=== PATIENT | female | born 1945 | race Caucasian/White ===

== ENCOUNTER 2022-02-09 18:31 | Emergency (ER) | payer MEDICARE, SELFPAY ==
[2022-02-09 19:04] VITALS: BP 146/72; PULSE 73; RESP 18; TEMP 35.8; O2SAT 97; BMI 23.6
[2022-02-09 19:37] LABS: Appearance Urine Cloudy (Clear); Bilirubin Urine 3+ (Negative); Blood Urine 3+ (Negative); Color Urine Red (Yellow); Glucose Urine Trace (Negative); Ketones Urine 2+ (Negative); Leukocyte Esterase Urine 3+ (Negative); Nitrite Urine Positive (Negative); Protein Urine 3+ (Negative); Specific Gravity Urine <= 1.005 (1.000-1.030); Urobilinogen Urine >=8.0 (0.2-1.0)
[2022-02-09 19:39] LABS: pH Urine >= 9.0 (5.0-8.5)
[2022-02-09 19:40] LABS: WBC Urine 50-100 (0-5)
[2022-02-09 19:58] LABS: RBC Urine 25-50 (0-2)
--- NOTE | 2022-02-09 20:30 | ED.GENADULT ---
HPI - General Adult General Time Seen by Provider: 20:31 Date Seen: 02/09/22 Chief complaint: Urogenital Problems, Female Stated complaint: Blood in urine, pain where she urinates Time Seen by Provider: 02/09/22 20:12 Source: patient and family Mode of arrival: ambulatory History of Present Illness HPI narrative: 68-year-old female who comes with suprapubic pain, hematuria, and dysuria starting today. No flank pain, fever, chills, nausea, vomiting. Distant history of urinary tract infections but nothing recent. Related Data Home Medications Medication Instructions Recorded Confirmed amitriptyline 10 mg tablet 10 mg PO DAILY 02/09/22 02/09/22 clonazepam 0.25 mg disintegrating 0.25 mg PO HS 02/09/22 02/09/22 tablet diazepam 5 mg tablet 5 mg PO BID 02/09/22 02/09/22 duloxetine 60 mg capsule,delayed 60 mg PO DAILY 02/09/22 02/09/22 release escitalopram oxalate 20 mg tablet 20 mg PO PRN 02/09/22 fluticasone propionate 50 1 spray intranasal PRN 02/09/22 mcg/actuation nasal spray,suspension gabapentin 100 mg capsule 100 mg PO Q12H 02/09/22 02/09/22 lansoprazole 30 mg capsule,delayed 30 mg PO DAILY 02/09/22 02/09/22 release levothyroxine 25 mcg tablet 25 mcg PO DAILY 02/09/22 02/09/22 lorazepam 0.5 mg tablet 0.5 mg PO PRN 02/09/22 metoprolol tartrate 50 mg tablet 50 mg PO DAILY 02/09/22 02/09/22 oxybutynin chloride 5 mg 5 mg PO PRN 02/09/22 tablet,extended release 24 hr ramipril 10 mg capsule 10 mg PO DAILY 02/09/22 02/09/22 tizanidine 2 mg tablet 2 mg PO DAILY 02/09/22 02/09/22 Allergies Allergy/AdvReac Type Severity Reaction Status Date / Time acyclovir Allergy Mild Rash Verified 02/09/22 19:13 adhesive tape Allergy Mild Rash Verified 02/09/22 19:13 cefdinir [From Omnicef] Allergy Mild Diarrhea Verified 02/09/22 19:13 pollen extracts Allergy Mild stuff nose Verified 02/09/22 19:13 Review of Systems Status of ROS: Reports: 10 or more systems reviewed and unremarkable except as noted in History and below Exam Narrative: Exam Narrative: General: Well-developed and well-nourished, no acute distress Head: Atraumatic and normocephalic Eyes: Pupils are equal reactive, extraocular motions intact, conjunctiva clear ENT: External nose and ears are normal, posterior pharynx without erythema or exudate Neck: No midline cervical tenderness, full spontaneous range of motion the neck, trachea midline, no adenopathy Heart: Regular rate and rhythm no murmurs or thrills Lungs: Clear to auscultation bilaterally without wheezes or crackles Abdomen: Soft, suprapubic tenderness, nondistended with active bowel sounds Musculoskeletal: No tenderness, deformity, or edema Neurologic: Awake, alert, and oriented x3, no gross focal neurologic deficits, cranial nerves intact as tested Psych: Mood and affect are appropriate Skin: No rashes Const: Vital Signs, click to edit/add: Vital Signs - 24 hr 02/09/22 19:04 Temperature 96.4 F L Pulse Rate [Right Pulse Oximeter] 73 Respiratory Rate 18 Blood Pressure [Ri ght Upper Arm] 146/72 H Pulse Oximetry 97 Oxygen Delivery Me thod Room Air Course Course Hospital Course: This patient seen and examined, prior records are reviewed. Patient presents with hematuria and dysuria. Urinalysis is consistent with infection. No flank pain to suggest pyelonephritis or kidney stone. No nausea, vomiting, or fever. Patient will be given ciprofloxacin given allergy profile, discharge with Pyridium and ciprofloxacin. Vital Signs Vital signs: Initial Vital Signs Temperature 96.4 F L 02/09/22 19:04 Temperature Source Temporal Artery Scan 02/09/22 19:04 Pulse Rate 73 02/09/22 19:04 Respiratory Rate 18 02/09/22 19:04 Blood Pressure 146/72 H 02/09/22 19:04 Blood Pressure Mean 96 02/09/22 19:04 Blood Pressure Position Sitting 02/09/22 19:04 Pulse Oximetry 97 02/09/22 19:04 Oxygen Delivery Method 02/09/22 19:04 Vital Signs Temperature 96.4 F L 02/09/22 19:04 Pulse Rate 73 02/09/22 19:04 Respiratory Rate 18 02/09/22 19:04 Blood Pressure 146/72 H 02/09/22 19:04 Pulse Oximetry 97 11/15/22 19:04 Oxygen Delivery Method 02/09/22 19:04 Temperature 96.4 F L 02/09/22 19:04 Pulse Rate 73 02/09/22 19:04 Respiratory Rate 18 02/09/22 19:04 Blood Pressure 146/72 H 02/09/22 19:04 Pulse Oximetry 97 02/09/22 19:04 Oxygen Delivery Method 02/09/22 19:04 Medical Decision Making Medical Records Medical records reviewed: Yes I reviewed the patient's medical records Lab Data Lab results reviewed: Yes I reviewed the patient's lab results Labs: Lab Results 02/09/22 Range/Units 19:20 Urine Color Red A (Yellow) Urine Appearance Cloudy A (Clear) Urine pH >= 9.0 H (5.0-8.5) Ur Specific [place] <= 1.005 (1.000-1.030) Urine Protein 3+ A (Negative) Urine Glucose (UA) Trace A (Negative) Urine Ketones 2+ A (Negative) Urine Blood 3+ A (Negative) Urine Nitrite Positive A (Negative) Urine Bilirubin 3+ A (Negative) Urine Urobilinogen >=8.0 (0.2-1.0) Ur Leukocyte Esterase 3+ A (Negative) Urine RBC 25-50 A (0-2) Urine WBC 50-100 A (0-5) Ur Squamous Epith Cells None (None-Few) Urine Bacteria None (None) Discharge Plan Discharge Clinical Impression: Urinary tract infection Patient Disposition: Home w/ Parent or Adult Condition: Stable Instructions: Urinary Tract Infection in Women (DC) Activity Level: No Restrictions Discharge Diet: Regular Prescriptions: No Action amitriptyline 10 mg tablet 10 mg PO DAILY clonazepam 0.25 mg tablet,disintegrating 0.25 mg PO HS diazepam 5 mg tablet 5 mg PO BID duloxetine 60 mg capsule,delayed release(DR/EC) 60 mg PO DAILY escitalopram oxalate 20 mg tablet 20 mg PO PRN fluticasone propionate 50 mcg/actuation spray,suspension 1 spray INTRANASAL PRN gabapentin 100 mg capsule 100 mg PO Q12H lansoprazole 30 mg capsule,delayed release(DR/EC) 30 mg PO DAILY levothyroxine 25 mcg tablet 25 mcg PO DAILY lorazepam 0.5 mg tablet 0.5 mg PO PRN metoprolol tartrate 50 mg tablet 50 mg PO DAILY oxybutynin chloride 5 mg tablet extended release 24hr 5 mg PO PRN ramipril 10 mg capsule 10 mg PO DAILY tizanidine 2 mg tablet 2 mg PO DAILY Follow Up/Referrals: Alex Orozco MD [Primary Care Provider] - Stand Alone Forms: [facility] Info Instructions
[2022-02-09] MEDS: CIPROFLOXACIN 500 MG TABLET PO (20:50)
[2022-02-09 20:57] VITALS: BP 146/72; PULSE 73; RESP 18; TEMP 35.8
--- OUTSIDE RECORDS SUMMARY | 2022-02-09 21:13 | XMS_ITS | Encounter Summary ---
:1945 Author Organization [place] Address [address] [facility] [place] [address] Care Team Providers Name Role Phone No Ref-Primary, Physician Primary Care Provider [phone] Reason for Visit Reason Onset Date Comments Outpatient 08/18/2021 Encounter Details Date Type Department Care Team Description 08/18/2021 Telephone [facility] Zbigniew [facility]ia [facility] [place] [address] [id number] [place], [place] [phone] [place] [address] [place], [place] [address] (Wo rk) Social History Tobacco Use Types Packs/Day Years Used Date Smoking Tobacco: Never Assessed Sex Assigned at Date Recorded Not on file documented as of this encounter Miscellaneous Notes Telephone Encounter - Beena Mejia LPCC - 08/18/2021 11:39 AM CDT Good Morning Cinthia, I wasn???t able to send this in a [employer] message, looks like your [employer] isn???t activated yet. The cost estimate for the 55+ Day Treatment program would be $31,332. If you are interested in signing the financial waiver that states you agree to pay the full amount, let me know and I can get that to you. Beena Patel [facility] Adult Day Treatment Psychotherapist Direct Line: [phone] Program Line: [phone] [email or web address] Employed by [employer] documented in this encounter Plan of Treatment Not on filedocumented as of this encounter Visit Diagnoses Not on filedocumented in this encounter Additional Health Concerns Assessment Noted Time PHQ-9 Depression Total Score: 18 08/17/2021 2:29 PM CD T documented as of this encounter Care Teams Carpenter Railcar Relationship Specialty Start Date End Date No Ref-Primary, Physician PCP - General 08/11/21 documented as of this encounter
--- OUTSIDE RECORDS SUMMARY | 2022-02-09 21:13 | XMS_ITS | Clinical Summary ---
:1945 Author Organization [place] Address [address] [place] [address] Care Team Providers Name Role Phone No Ref-Primary, Physician Primary Care Provider [phone] Medications Medication Sig Dispensed Refills Start Date End Date Status acetaminophen (TYLENOL) Take 1,000 mg by 0 2 Active 500 MG tablet mouth amitriptyline (ELAVIL) TAKE 1 TABLET BY 0 07/29/2021 Active 10 MG tablet MOUTH TWICE DAILY (5 P.M. AND AT BEDTIME) clonazePAM (KLONOPIN) 0 08/17/2021 Active 0.25 MG TBDP ODT tab DULoxetine (CYMBALTA) 0 08/12/2021 Active 60 MG capsule escitalopram (LEXAPRO) 0 08/12/2021 Active 10 MG tablet LORazepam (ATIVAN) 0.5 TAKE 1 TABLET BY 0 08/13/2021 Active MG tablet MOUTH TWICE DAILY NEEDED FOR ANXIETY oxyCODONE (ROXICODONE) 2 tablets p.o. 0 07/27/2021 Active 5 MG tablet once daily as needed. tiZANidine (ZANAFLEX) 4 0 08/15/2021 Active MG tablet Social History Tobacco Use Types Packs/Day Years Used Date Smoking Tobacco: Never Assessed Sex Assigned at Date Recorded Not on file Plan of Treatment Health Maintenance Due Date Last Done Comments ADVANCE CARE PLANNING 1945 ANNUAL REVIEW OF HM ORDERS 1945 DEXA 1945 HEPATITIS B IMMUNIZATION (1 1945 of 3 - 3-dose series) HEPATITIS C SCREENING 11/27/1961 LIPID 11/27/1988 FALL RISK ASSESSMENT 11/27/2008 MEDICARE ANNUAL WELLNESS 11/27/2008 VISIT COVID-19 Vaccine (4 - 04/13/2021 02/16/2021, 05/07/2020, Booster for Moderna series) 04/09/2020 INFLUENZA VACCINE (#1) 2021 01/12/2021, 01/03/2020, 12/28/2018, Additional history exists DTAP/TDAP/TD IMMUNIZATION 05/19/2028 05/19/2018 (2 - Td or Tdap) Pneumococcal Vaccine: 65+ Completed 01/30/2016, 01/01/2016 , Years 12/27/2014 ZOSTER IMMUNIZATION Completed 11/09/2018, 09/05/2018, 02/14/2013 PHQ-2 (once per calendar Completed 08/17/2021, 08/17/2021 year) IPV IMMUNIZATION Aged Out No longer eligi ble based on patient 's age to complete this topic MENINGITIS IMMUNIZATION Aged Out No longe r eligible based on patient 's age to complete this topic Insurance Payer Benefit Plan / Subscriber ID Effective Dates Phone Addre ss Type Group [facility] MEDICARE [id number] 2021-Presen [address] [address] [place] [address] KristyCinthia [facility] 1945 [address] (Home) [address] [place] [address] Care Teams Utilization Manager Relationship Specialty Start Date End Date No Ref-Primary, Physician PCP - General 08/11/21
--- OUTSIDE RECORDS SUMMARY | 2022-02-09 21:14 | XMS_ITS | Encounter Summary ---
:1945 Author Organization [employer] Address [address] [place] [address] Care Team Providers Name Role Phone Alex Orozco MD Primary Care Provider Reason for Visit Reason Comments Symptoms rigidity Encounter Details Date Type Department Care Team Description 06/08/2021 Telephone [facility] Rozina Beckett RN Symptoms (rigidity) [address] [place], [place] [address] Social History Tobacco Use Types Packs/Day Years Used Date Smoking Tobacco: Never Smokeless Tobacco: Never Alcohol Use Standard Drinks/Week Comments Not Currently 0 (1 standard drink = 0.6 oz pure alcoho l) Sex Assigned at Date Recorded Female 10/30/2020 7:58 AM CDT documented as of this encounter Nursing Notes Rozina Beckett, MONICA - 06/10/2021 8:42 AM CDT Call back to Cinthia, provided response, she said that's what she thought. Has been to PMR. Thanked me for call back and hung up. Mateo Ibarra MD - 06/09/2021 3:51 PM CDT I am really not sure what else to try for the rigidity at this point. Not sure if PMR has other ideas. Anxiety can make people more tense so could contribute in some way so if there are other options to treat this that could be tried. Mateo Ibarra MD Rozina Beckett RN - 06/09/2021 12:31 PM CDT Do you have any additional recommendations or comments before I call Cinthia back? Rozina Beckett RN - 06/08/2021 4:21 PM CDT Cinthia called and left a message for Dr. Ibarra. States her left side is in a constant state of rigidity and none of the recommendations or treatments have worked. She wonders if it is due to being in a constant state of anxiety or from her stroke and what can she do about it. She also placed call to PMR. documented in this encounter Plan of Treatment Not on filedocumented as of this encounter Visit Diagnoses Not on filedocumented in this encounter Care Teams Financial Compliance Officer Relationship Specialty Start Date End Date Alex Orozco MD PCP - General Family Practice 11/23/19 [address] [place] [address] documented as of this encounter
--- OUTSIDE RECORDS SUMMARY | 2022-02-09 21:14 | XMS_ITS | Encounter Summary ---
:1945 Author [facility] [address] [place] [address] Care Team Providers Name Role Phone Alex Orozco MD Primary Care Provider Reason for Visit Reason Comments Medication Request Valium Encounter Details Date Type Department Care Team Description 09/21/2021 Telephone [facility] Rozina Beckett electrical troubleshooter Request [address] nguyen (Valium) [place], [place] [address] Social History Tobacco Use Types Packs/Day Years Used Date Smoking Tobacco: Never Smokeless Tobacco: Never Alcohol Use Standard Drinks/Week Comments Not Currently 0 (1 standard drink = 0.6 oz pure alcoho l) Sex Assigned at Date Recorded Female 10/30/2020 7:58 AM CDT documented as of this encounter Nursing Notes Rozina Beckett RN - 09/22/2021 9:14 AM CDT Attempted call back, left message with Dr. Ibarras response. Referred to Dr. Benedict or whomever is managing her pain. She does have another visit scheduled with Dr. Ibarra on TuesdaySeptember 25. Mateo Ibarra MD - 09/22/2021 8:03 AM CDT We have had issues with sedation with these medications in the past. It would need to be discussed in a visit with whoever she will be following for the pain. Mateo Ibarra MD Rozina Beckett, RN - 09/21/2021 9:01 AM CDT Patient left a message on nurse line on Tuesday afternoon asking if Dr. Ibarra's would please prescribe Valium for her. Stating that the pain on her stroke side is terrible and nothing helps. She cancelled her appointment with Dr. Chavarria on Tuesday and was a no show at PMR. Please advise if this should be referred to PMR doctor? documented in this encounter Plan of Treatment Not on filedocumented as of this encounter Visit Diagnoses Not on filedocumented in this encounter Care Teams Splicing Machine Operator Automatic Relationship Specialty Start Date End Date Alex Orozco MD PCP - General Family Practice 11/23/19 [address] [place] [address] documented as of this encounter
--- OUTSIDE RECORDS SUMMARY | 2022-02-09 21:14 | XMS_ITS | Encounter Summary ---
:1945 Author Organization [place] Address [address] [place] [address]. [place] [address] Care Team Providers Name Role Phone No Ref-Primary, Physician Primary Care Provider [phone] Reason for Visit Reason Onset Date Comments Outpatient 08/11/2021 Encounter Details Date Type Department Care Team Description 08/11/2021 Telephone [facility] Generic, Behavioral Outpatient [facility] MD [address] [place] [phone] Social History Tobacco Use Types Packs/Day Years Used Date Smoking Tobacco: Never Assessed Sex Assigned at Date Recorded Not on file documented as of this encounter Miscellaneous Notes Telephone Encounter - Daryl Ga - 08/17/2021 1:42 PM CDT Operation Agent placed a second call this afternoon to check in patient for video appt at 2pm. Unable to get a hold of patient. Operation Agent left a second voicemail with rfp writer's call back number. Operation Agent included in voicemail that the latest time to check in for video appointment is 2:15pm. If patient miss the appointment today, patient can reschedule. Operation Agent left Intake's number in the voicemail just in case patient need to reschedule. Operation Agent will inform patient's real estate developer. Telephone Encounter - Daryl Ga - 08/17/2021 1:18 PM CDT Patient have a video appointment today at 2pm with [facility]. Operation Agent placed a call this afternoon to check in patient for video appointment. Unable to get a hold of patient. Operation Agent left a voicemail with rfp writer's call back number. Telephone Encounter - Drew Gutiérrez - 08/11/2021 10:48 AM CDT 08/11/21 Received call from Nohelia (MONICA [facility] [phone]) referring Pt for a DA for the 55+ Program. documented in this encounter Plan of Treatment Not on filedocumented as of this encounter Visit Diagnoses Not on filedocumented in this encounter Care Teams Linux Engineer Relationship Specialty Start Date End Date No Ref-Primary, Physician PCP - General 08/11/21 documented as of this encounter
--- OUTSIDE RECORDS SUMMARY | 2022-02-09 21:14 | XMS_ITS | Encounter Summary ---
:1945 Author Organization [facility] Address [address] [place] [address] Care Team Providers Name Role Phone Alex Orozco MD Primary Care Provider Reason for Visit Reason Comments Pain Encounter Details Date Type Department Care Team Description 06/22/2021 Telephone [facility] Rozina Beckett RN Pain [address] [place], [place] [address] Social History Tobacco Use Types Packs/Day Years Used Date Smoking Tobacco: Never Smokeless Tobacco: Never Alcohol Use Standard Drinks/Week Comments Not Currently 0 (1 standard drink = 0.6 oz pure alcoho l) Sex Assigned at Date Recorded Female 10/30/2020 7:58 AM CDT documented as of this encounter Nursing Notes Rozina Beckett RN - 06/24/2021 9:59 AM CDT Call back to Cinthia, left a message that she could schedule a follow up visit either at [facility]. Also doubtful that any place would send an Occupational therapist to her daily. Mateo Ibarra MD - 06/23/2021 4:31 PM CDT I'm really not sure. A lot of different treatments have been tried, and she has met with other specialties (PMR, pain) since I was last treating those symptoms. We could set up a visit to go over things in more detail if she would like. Mateo Ibarra MD Rozina Beckett RN - 06/22/2021 2:45 PM CDT Patient left another message that she got my voicemail. Confirmed pain is on left side (stroke side) and that PMR hasn't worked out so well. Said she needs someone to come to her facility 5 times times per week and they can't find anyone that will do that and she can't get to [place] so she only gets some exercises 2 times per week. Wonders if you know of anyone that can help in [place]. Rozina Beckett RN - 06/22/2021 2:07 PM CDT Patient left another message that she missed call back and we should leave her a message (which I did). Rozina Beckett RN - 06/22/2021 1:30 PM CDT Patient left a message that every night between 5:30-6:30 she gets a massive pain that runs from her left leg up to her arm. It sometimes lasts for a half hour to more. She is wondering if this is being caused by some medical issue. It appears this is the side that she has her spasticity. Attempted call back, left message for Cinthia Wally would pass on to Dr. Ibarra and if he has anything new to add, we can call her back. She was to work with OT through PMR and unsure if that has happened. documented in this encounter Plan of Treatment Not on filedocumented as of this encounter Visit Diagnoses Not on filedocumented in this encounter Care Teams Medical Accountant Relationship Specialty Start Date End Date Alex Orozco MD PCP - General Family Practice 11/23/[address] [place] [address] [place] [address] documented as of this encounter
--- OUTSIDE RECORDS SUMMARY | 2022-02-09 21:14 | XMS_ITS | Encounter Summary ---
:1945 Author [facility] Address [address] [place] [address] Care Team Providers Name Role Phone Alex Orozco MD Primary Care Provider Reason for Visit Reason Comments Prior Authorization Request [id number] Encounter Details Date Type Department Care Team Description 07/06/2021 Telephone [facility] [address] Authorization Rehabilitative Medic ine DO Request ([id number]) [address] [address] [place] [address] [phone] Social History Tobacco Use Types Packs/Day Years Used Date Smoking Tobacco: Never Smokeless Tobacco: Never Alcohol Use Standard Drinks/Week Comments Not Currently 0 (1 standard drink = 0.6 oz pure alcoho l) Sex Assigned at Date Recorded Female 10/30/2020 7:58 AM CDT documented as of this encounter Nursing Notes Stefany [place] CMA - 07/06/2021 10:17 AM CDT NO PA NEEDED FOR [id number], COVERAGE IS BASED ON MEDICAL NECESSITY AND CLINICAL DOCUMENTATION documented in this encounter Plan of Treatment Not on filedocumented as of this encounter Visit Diagnoses Not on filedocumented in this encounter Care Teams Ui Software Engineer Relationship Specialty Start Date End Date Alex Orozco MD PCP - General Family Practice 11/23/19 [address] [place] [address] documented as of this encounter
--- OUTSIDE RECORDS SUMMARY | 2022-02-09 21:14 | XMS_ITS | Encounter Summary ---
:1945 Author Organization Formerly [facility] Address [address] [place] [address] Care Team Providers Name Role Phone Alex Orozco MD Primary Care Provider Reason for Referral Therapies (Routine) - New Request Specialty Diagnoses / Procedures Referred By Contact Refer red To Contact Diagnoses Neuropathic pain Mateo Ibarra MD [address] [place], [place] [address] Referral ID Status Reason Start Date Expiration Date Visits V isits Requested Authorized [id number] New Request 09/25/2021 09/25/2022 1 1 Scheduling Instructions Your provider has recommended an appoint ment with [facility]. To schedule your appointment, you may ca [phone] or schedule online at Gl[employer]/schedule. We suggest you call your health insurance company about your coverage and benefits for this appo intment. Encounter Details Date Type Department Care Team Description 09/25/2021 Telemedicine [facility] Mateo Ibarra, Neuropathic pain (Primary Dx ); [address] [place], [place] [address] [place], [place] [phone] (Wo rk) Social History Tobacco Use Types Packs/Day Years Used Date Smoking Tobacco: Never Smokeless Tobacco: Never Alcohol Use Standard Drinks/Week Comments Not Currently 0 (1 standard drink = 0.6 oz pure alcoho l) Sex Assigned at Date Recorded Female 10/30/2020 7:58 AM CDT documented as of this encounter Progress Notes Mateo Ibarra MD - 09/25/2021 9:20 AM CDT [facility] Video Follow-up Note History of Present Illness: Cinthia Wagner is a 75 y.o. female with history of right frontal stroke??(likely hemorrhage),??melanoma, hypertension, pre diabetes, CKD, thyroid disease who presents in follow-up for??her stiffness, pain,??at this point felt to be related to her prior stroke.?She has a hist ory of left hemiplegia following stroke in 2010. However starting in she developed increasing stiffness on the left side as well as micrographia, right hand and head tremor and toe curling inthe feet as well as shuffling.??[place] to possibly have a parkinsonian disorder given symptoms however did not respond to up to 3 tabs TID of??carbidopa/levodopa??25/100??and a LORIN was negative, thus this now seems less likely.??Workup has also included MRI of brain and cervical spine without explanation. She also underwent treatment with physiatry, had second opinion. Treatment of pain/stiffness has been very difficult, often limited by side effects. She reports she is continuing to struggle with muscle spasms in the morning. Extending from the leftfoot the left arm. More recently gabapentin was added. This made her sleepy. The dose was moved fromthe morning to the afternoon due to this. She continues on amitriptyline, Cymbalta, tizanidine as well. She has questions today regarding the possibility of using diazepam. She is already on clonazepam for anxiety. Reports that decreasing this previously did not go well. Exam: Deferred Assessment/Plan: 75-year-old female with post stroke spasticity, pain presents in follow-up. Medicaltreatments have been less effective than would be hoped and also complicated by side effects, namelysedation being common. She reports that she did not do well when she stopped her clonazepam which would be necessary if she was to try diazepam. We discussed that I feel it is quite unlikely the diazepam would be helpful in their be high likelihood of sedation with that. Thus do not feel it is worthwhile to take her off the clonazepam and switch to it which could worsen things. I am not sure of other medical therapies to offer for her pain. We discussed that she could considernonmedical therapies. I did place referral to meet again with lifestyle renewal, feel this may be helpful. Physician / patient located at: Clinic/home Note dictated using voice recognition software. 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
--- OUTSIDE RECORDS SUMMARY | 2022-02-09 21:14 | XMS_ITS | Clinical Summary ---
:1945 Author Organization [facility] Address [place] [address] Care Team Providers Name Role Phone Alex Orozco MD Primary Care Provider [phone] Allergies Active Allergy Reactions Severity Noted Date Comments Acyclovir Rash, Erythema 06/11/2016 Cerner listed no reactions Adhesive Tape-Silicones Rash 02/02/2017 Cefdinir Diarrhea 12/21/2019 Loose stools Gabapentin Other - Describe In 09/04/2021 Sedation on just Comment Field 100mg twice da chuy. Lisinopril Erythema 02/02/2017 Pregabalin Other - Describe In 01/14/2021 fatigue Comment Field Medications Medication Sig Dispensed Refills Start End Status Date Date triamcinolone Apply topically 45 g 0 10/15/19 Active (ARISTOCORT; to affected 21 KENALOG) 0.1 % area(s) 2 times creamIndications: daily. To rash Rash right lower leg pretibial area for 14 days. DULoxetine 0 02/27/20 Active (CYMBALTA) 60 mg 21 Delayed-release capsule bisacodyL Insert 1 10 Suppository 3 04/30/19 Activ e (DULCOLAX) 10 mg Suppository (10 22 suppositoryIndicat mg) rectally ions: Chronic once daily if constipation needed (constipation). lansoprazole TAKE 1 CAPSULE 90 Capsule 2 07/02/19 A ctive (PREVACID) 30 mg BY MOUTH DAILY 22 capsuleIndications BEFORE A MEAL : Chronic GERD *OKAY TO OPEN AND PUT IN APPLESAUCE* acetaminophen TAKE 2 TABLETS 540 Tablet 3 07/31/19 Active (TYLENOL EXTRA BY MOUTH 3 22 STRGTH) 500 mg TIMES DAILY tabletIndications: Pain sennosides (SENNA) 1 p.o. twice 180 Tablet 3 08/08/19 Active 8.6 mg daily as needed 22 tabletIndications: for Chronic constipation constipation fluticasone (50 INHALE 1 SPRAY 48 g 3 08/13/19 Active mcg per actuation) IN EACH NOSTRIL 22 nasal solution DAILY (FLONASE)Indicatio ns: Chronic sinusitis, unspecified location wheelchairIndicati Wheelchair: lt 1 Each 0 09/01/19 Active ons: Ischemic wt with leg 22 stroke (HC), Left rests: Swing hemiparesis (HC) away Length of need: 99 months levothyroxine Take 1 Tablet 28 tablet. 12 09/01/19 A ctive (SYNTHROID) 25 mcg (25 mcg) by 22 tabletIndications: mouth before Acquired breakfast. hypothyroidism metoprolol Take 1 Tablet 56 Tablet 12 09/01/19 Activ e tartrate (50 mg) by 22 (LOPRESSOR) 50 mg mouth 2 times tabletIndications: daily. Essential hypertension ramipriL (ALTACE) Take 1 Capsule 56 Capsule 12 09/01/19 Active 10 mg (10 mg) by 22 capsuleIndications mouth 2 times : Essential daily. hypertension melatonin 3 mg Take 1 Capsule 90 Capsule 3 09/10/19 Active capIndications: by mouth at 22 Insomnia, bedtime. As idiopathic needed for insomnia. food supplemt, 1 bottle daily 3792 mL 10 09/25/19 Active lactose-reduced by mouth 22 (Ensure) gabapentin Four oral at 180 Capsule 12 09/30/19 Acti ve (NEURONTIN) 100 mg noon and two at 22 capsuleIndications bedtime. : Pain clonazePAM Take 0.25 mg in 90 Tablet 5 11/06/19 Act patrick (KLONOPIN WAFER) the morning, at 22 0.25 mg 5 PM, and at disintegrating bedtime. tabletIndications: Anxiety escitalopram Take 1 Tablet 30 Tablet 3 11/06/19 Act patrick oxalate (LEXAPRO) (20 mg) by 22 20 mg mouth at tabletIndications: bedtime. Moderate episode of recurrent major depressive disorder (HC) polyethylene MIX 17 GM IN 8 1700 g 3 11/20/19 Ac tive glycoL (MIRALAX) OZ GLASS OF 22 17 gram/dose LIQUID AND powderIndications: DRINK BY MOUTH Chronic 1 TIME DAILY. constipation SECOND DOSE DAILY NEEDED FOR CONSTIPATION tiZANidine One oral at 90 Tablet 11 11/28/19 Active (ZANAFLEX) 2 mg 8am, and one 22 tabletIndications: daily at Muscle spasm 5:30pm, and one at 11:30pm. amitriptyline Take 1 tablet 56 Tablet 3 01/01/20 Ac tive (ELAVIL) 10 mg by mouth at 22 tabletIndications: 5pm, and two Neuropathy, tablets by Moderate episode mouth at of recurrent major bedtime. depressive disorder (HC) LORazepam (ATIVAN) Take 0.5 20 Tablet 1 01/09/20 A ctive 0.5 mg Tablets (0.25 22 tabIndications: mg) by mouth 2 Anxiety times daily if needed for Anxiety. Tqr-I-FslzZrfrdfox TAKE 1 TABLET 90 Tablet 3 01/18/20 Active ons: HTN BY MOUTH DAILY 22 (hypertension) oxyCODONE TAKE 2 TABLETS 60 Tablet 0 02/02/20 Activ e (ROXICODONE) 5 mg BY MOUTH DAILY 22 immediate release AT NOON tabletIndications: Pain medication order GENTLY RINSE 0 06/17/19 Discontinued composer BOTH NASAL (*Patient CAVITIES 3 states no TIMES DAILY FOR long er NASAL taking/Not on CONGESTION. sending FOLLOW MIXING facili ty list) INSTRUCTIONS ON BOX. Bqa-Z-ZllyUztfsngl TAKE 1 TABLET 90 Tablet 2 02/15/20 Discontinued ons: HTN BY MOUTH DAILY 022 (hypertension) oxybutynin XL Take 1 Tablet 90 Tablet 0 10/24/19 Di scontinued (DITROPAN XL) 5 mg (5 mg) by mouth 022 (*Med CR once daily. ineffect patrick) tabletIndications: Urinary frequency sennosides (SENNA) 3 tablets p.o. 180 Tablet 3 11/13/1902/09 Discontinued 8.6 mg every morning. 22 022 (*Pat ient tabletIndications: s tates no Chronic longer constipation taking/ Not on sending facility l ist) oxyCODONE TAKE 2 TABLETS 60 Tablet 0 01/06/20 Disco ntinued (ROXICODONE) 5 mg BY MOUTH DAILY 22 022 immediate release AT NOON tabletIndications: Pain Active Problems Problem Noted Date Urinary incontinence 01/14/2022 Ischemic stroke 10/16/2021 Pain 10/06/2021 Parkinsonism 04/23/2021 Adenomatous colon polyp 08/13/2020 Overview: Colonoscopy 07/2020 3 small polyps, repea t in 5 years with propofol Chronic GERD 08/06/2020 Left hemiparesis 03/11/2020 Tinnitus aurium, bilateral 04/13/2017 Sensorineural hearing loss, asymmetrical 04/13/2017 Gait instability 06/11/2016 Chronic constipation 06/11/2016 Allergic rhinitis due to pollen 06/11/2016 Essential hypertension 06/11/2016 Acquired hypothyroidism 06/11/2016 Anxiety and depression 06/11/2016 Recurrent UTI 06/11/2016 Contracture, left hand 06/11/2016 Resolved Problems Problem Noted Date Resolved Date Pseudopolyp of ascending colon without complication 07/10/19 22 10/16/2021 Moderate episode of recurrent major depressive disorder 03/2910/13/2021 Agitation 04/28/2020 04/28/2020 Parkinsonism 04/22/2020 10/14/2020 Prediabetes 10/24/2017 10/14/2020 Hyperlipidemia, unspecified 06/11/2016 10/14/2020 Osteoporosis 06/11/2016 10/14/2020 Ascending aorta dilatation 06/11/2016 10/16/2021 Encounters Date Type Specialty Care Team Description 02/08/2022 Telephone Lorena Jordan, CHIDI Questions 02/08/2022 Nurse Triage Alex Orozco Constipatio n MD Jerrica 02/08/2022 Telephone Alex Orozco Questions ( Constipation) MD Jerrica 02/05/2022 Telephone Alex Orozco orders MD Jerrica 02/04/2022 Telemedicine Alex Orozco Telehealth (No vitals MD Jerrica taken); Follow Up (Discuss mental health referral); Conc erns (Shaking, rigid , had COVID-19 booste r 02/03/2022) 02/01/2022 Refill Alex Orozco Refill Requ est MD Jerrica (Oxycodone) 01/31/2022 Travel 01/29/2022 Telephone Alex Orozco RETURNING A CALL MD Jerrica (Patient nurse Julieta was returning a robin l regarding Cinthia message regarding the g eriatric program.) 01/28/2022 Telemedicine Alex Orozco Telehealth (No aneudy Becerril MD taken); Follow Up 01/28/2022 Telephone Alex Orozco GERIATRIC P SYCHIATRIC MD Jerrica ASSESSMENT PROG RODRIGUEZ 01/26/2022 Travel 01/26/2022 Nurse Triage Alex Orozco MD 01/22/2022 Nurse Triage Alex Orozco Error-pleakbar e disregard MD Jerrica 01/22/2022 Telephone Alex Orozco ErrorSharynpleakbar e lucretia Becerril MD 01/21/2022 Ancillary Procedure Canceled (Other) 01/21/2022 Telephone Julian June Abena, CASKET INSPECTOR Appointmen t 01/21/2022 Telephone Alex Orozco Appointment Request MD Jerrica (F/U) 01/21/2022 Telephone Renato Stacy MD 01/21/2022 Travel 01/19/2022 Telephone Alex Orozco MD 01/15/2022 Refill Alex Orozco Refill Requ triston Becerril MD (Tab-a-adela) [facility]No aneudy Becerril MD taken); Follow Up 01/14/2022 Travel 01/12/2022 Telephone Alex Orozco MD 01/08/2022 [facility] (No aneudy Becerril MD taken); Follow Up 01/08/2022 Travel 01/06/2022 Telephone Alex Orozco MD 01/06/2022 Telephone Lorena Jordan, CASKET INSPECTOR Medication Management 01/05/2022 Telephone Alex Orozco Follow Up ( LORazepam MD Jerrica (ATIVAN) 0.5 mg tab) 01/04/2022 Refill Alex Orozco Refill Requ est MD Jerrica (Oxycodone) 01/01/2022 [facility]medicine [facility] (No aneudy Becerril MD taken); Follow Up 12/31/2021 Telemedicine Julian Lorena Abena, CASKET INSPECTOR 12/28/2021 Travel 12/24/2021 Telemedicine Alex Orozco MD 12/24/2021 Travel 12/23/2021 Telemedicine Powderly, June D, CASKET INSPECTOR No Show 12/19/2021 Travel 12/19/2021 Nurse Triage Alex Orozco Diarrhea MD Jerrica 12/18/2021 Telephone Alex Orozco DISCONTINUE (( MD Jerrica sennosides (SEN NA) 8.6 mg tablet and polyethylene gl ycoL (MIRALAX) 17 gr am/dose powder/)) 12/17/2021 Phone Office Visit Alex Orozco MD 12/17/2021 Telephone Alex Orozco Follow Up MD Jerrica 12/16/2021 Telephone Alex Orozco Update ([place] cement) MD Jerrica 12/16/2021 Telephone Alex Orozco Questions ( BOWEL MD Jerrica MOVEMENT) 12/11/2021 Nurse Triage Alex Orozco Questions ( GI- patient MD Jerrica wouldn't specif y) 12/10/2021 Phone Office Visit Alex Orozco Pain MD Jerrica 12/10/2021 Travel 12/09/2021 Telemedicine Julian, June D, CASKET INSPECTOR 12/07/2021 Telephone Alex Orozco Questions MD Jerrica (Constipation/A llison ext [phone]) 12/03/2021 Telemedicine Powderly, June D, CASKET INSPECTOR No Show 12/02/2021 Refill Alex Orozco Refill Requ triston Becerril MD (oxycodone) 11/27/2021 Orders Only Alex Orozco <No scans a ttached> MD Jerrica 11/26/2021 [facility] (No aneudy Becerirl MD taken); Follow Up 11/26/2021 Travel 11/25/2021 Refill Alex Orozco Refill Requ triston Becerril MD (Lorazepam) 11/19/2021 Telemedicine [facility] (No aneudy Becerril MD taken); Follow Up 11/19/2021 Alex Avila Appointment (PLEASE CALL MD Jerrica HER) 11/12/2021 Telephone Alex Orozco order MD Jerrica from Last 3 Months Immunizations Name Administration Dates Next Due COVID-19 vaccine (Moderna 05/07/2020, 04/09/2020 100mcg/0.5mL) PF, MDV COVID-19 vaccine (Videobot 08/31/2021 30mcg/0.3mL) 12YO+ GEO-SUCROSE PF, MDV Influenza, High-dose Inactivated 01/03/2020, 2018, 03/2017, 12/30/2016, 01/01/2016 Influenza, High-dose Quadrivalent 01/14/2022, 01/12/2021 Inactivated Pneumococcal Poly,23-Valent 01/30/2016, 01/01/2016 (Pneumovax) Pneumococcal conj 13-Valent (Prevnar 12/27/2014 13) Tdap 05/19/2018 Zoster (Shingrix-RZV, recombinant) 11/09/2018, 09/05/2018 Zoster (Zostavax-ZVL, live) 02/14/2013 Family History Medical History Relation Name Comments Cancer-prostate Father Aneurysm Mother Ruptued ascendin g aorta Cancer-breast Other paternal great a unt Anesthesia Problem No Family History Relation Name Status Comments Father Mother Other Social History Tobacco Use Types Packs/Day Years Used Date Never Smoker Smokeless Tobacco: Never Used Tobacco Cessation: Counseling Given: Yes Alcohol Use Standard Drinks/Week Comments No 0 (1 standard drink = 0.6 oz pure alcoho l) Sex Assigned at Date Recorded Female 11/29/2020 8:38 PM CDT COVID-19 Exposure Response Date Recorded In the last 10 days, have you been in contact with No / Unsu re 01/31/2022 8: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 Obstetrics History Para Term AB IAB SAB Ectopic Multiple Living Live Births 0 0 0 0 0 0 0 0 0 0 0 Last Filed Vital Signs Vital Sign Reading Time Taken Comments Blood Pressure 128/70 11/03/2021 3:06 PM CDT tower Pulse 62 10/16/2021 2:07 PM CDT Temperature 37.1 ??C (98.7 ??F) 07/23/2021 6:03 PM CDT Respiratory Rate 16 07/23/2021 6:03 PM CDT Oxygen Saturation 68% 11/03/2021 3:06 PM CDT Inhaled Oxygen Concentration - - Weight 65.8 kg (145 lb) 11/03/2021 3:06 PM CDT Height 170.2 cm (5' 7) 07/23/2021 5:59 PM CDT Body Mass Index 22.71 07/23/2021 5:59 PM CDT Plan of Treatment Upcoming Encounters Date Type Specialty Care Team Description 02/10/2022 Telemedicine JulianJune, [address] [place], [place] [address] (Wo rk) 02/11/2022 Telemedicine Alex Orozco MD [address] [place], [place] [address] (Wo rk) 02/24/2022 Telemedicine Julian June, [address] [place] [address] [place], [place] [address] (Wo rk) 03/10/2022 Office Visit Del Gutierrez DPM [address] [place], [place] [address] (Wo rk) Health Maintenance Due Date Last Done Comments Hepatitis C screening for age 0911/27/1963 18-79 AAA screening age 55-77 11/27/1998 BMI (ht and wt on same day) for 10/14/2021 10/14/2020, 07/26, age 18+ 01/23/2020, Additional history exists Medicare Wellness for age 65+ 10/16/2022 10/16/2021, 2020, 05/19/2018, Additional history exists Depression screening for age 12+ 11/04/2022 11/04/2021, 11/2021, 10/16/2021, Additional history exists Tetanus booster 05/19/2028 05/19/2018 Pneumococcal series for age 65+ Completed 01/30/2016, 08/2015, 12/27/2014 Tdap Completed 05/19/2018 Zoster (shingles) series for age Completed 11/09/2018, 01/2019, 50+ 02/14/2013 DEXA/DXA scan for age 65+ Completed 07/15/2020 Influenza for age 65+ Completed 01/14/2022, 01/12/2021, 01/03/2020, Additional history exists COVID-19 vaccine series Completed 02/03/2022, 08/31/2021, 02/16/2021, Additional history exists Results Not on filefrom Last 3 Months Insurance Payer Benefit Plan / Subscriber ID Effective Dates Phone Addre ss Type Group [facility] MR [id number] 2021-Present [address] [address] [place] [address] [facility] MR [id number] 2021-Present [address] [address] [place] [address] Advance Directives Documents on File Type Date Recorded 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
--- OUTSIDE RECORDS SUMMARY | 2022-02-09 21:14 | XMS_ITS | Encounter Summary ---
:1945 Author Organization [facility] Address [address] [place] [address] Care Team Providers Name Role Phone lAex Orozco MD Primary Care Provider Reason for Visit Reason Comments MEDICATION REACTION Encounter Details Date Type Department Care Team Description 05/19/2021 Telephone [facility] [address], MEDI CATION REACTION Rehabilitative Medic ine DO [address] [address] [place] [phone] (Wo rk) Social History Tobacco Use Types Packs/Day Years Used Date Smoking Tobacco: Never Smokeless Tobacco: Never Alcohol Use Standard Drinks/Week Comments Not Currently 0 (1 standard drink = 0.6 oz pure alcoho l) Sex Assigned at Date Recorded Female 10/30/2020 7:58 AM CDT documented as of this encounter Nursing Notes Perlita Stuart RN - 06/05/2021 10:59 AM CST Copy of the med list was mailed to the pt's address on file. Chikis Ortega - 06/05/2021 10:35 AM CST Pt called to request med list.BH Radha Vasquez RN - 05/21/2021 4:03 PM CST Updated patient who verbalized understanding. No questions or additional concerns noted at this time. She is now scheduled for video visit on 06/05/21. Declined appointment on 05/27/21. Radha Vasquez RN - 05/21/2021 3:50 PM CST Left voice message instructing the patient to call [facility] back at [phone] and select option 2 to speak with a nurse. Axel Raymond DO - 05/21/2021 3:41 PM CST I do not know that I have anything else to offer. All of the typical antispasm medications I use shedoes not tolerate. I am not sure the cause of these episodes of the arm rigidity. The dantrolene should be nearly out of her system by now. If this continues I would recommend scheduling a follow-up visit by video so we can review her symptoms. Radha Vasquez RN - 05/21/2021 10:58 AM CST Updated patient who verbalized understanding. Reports she still has blurred vision. Has seizures that make her left arm and leg go rigid at the same time. States this has been happening 1-2 times daily since Tuesday. Always in the afternoon when she is laying down trying to relax. It lasts 15-20 minutes but the left arm stays rigid throughout the day. Says whatever medications she takes at 8pm relaxes her and she is able to sleep right away. Says one of the bedtime medications she takes is melatonin and she also takes clonazepam TID. Denies any other symptoms with her seizures. She is going to follow up with her eye doctor at [facility] regarding the blurred vision but states her insurance will not allow that until September. She is also going to have her [facility] nurse fax us an updated medication list. Nofurther questions/concerns noted. Please advise. S ROLLER Jillian Kaufman CMA - 05/21/2021 9:05 AM CST LMTRC 05/21 S ROLLER Axel Benedict DO - 05/19/2021 3:01 PM CST I called the patient. She did not answer so I left a message with the following. Given that she has not been taking the medication for very long hopefully the side effects symptoms will be very short-lived. She was having increased spasm from the medications that was discontinued by the on-call physician over the weekend. I would like to clarify the exact symptoms she was having that felt like side effects. The withdrawal symptoms should resolve shortly especially given she had only been taking the medication for a couple days. S ROLLER Chikis Samuel - 05/19/2021 12:49 PM CST Pt called, unable to reach a nurse. Pt is having negative/withdrawl reaction to Dantrolene. Pt states she is having great rigidity on left side of body and is hoping to hear from a nurse soon. Pleaseadvise. S ROLLER documented in this encounter Plan of Treatment Not on filedocumented as of this encounter Visit Diagnoses Not on filedocumented in this encounter Care Teams Direct Care Counselor Relationship Specialty Start Date End Date Alex Orozco MD PCP - General Family Practice 11/23/19 [address] [place] [address] documented as of this encounter
--- OUTSIDE RECORDS SUMMARY | 2022-02-09 21:14 | XMS_ITS | Encounter Summary ---
:1945 Author Organization [facility] Address [address] [place] [address] Care Team Providers Name Role Phone Alex Orozco MD Primary Care Provider Encounter Details Date Type Department Care Team Description 06/17/2021 Telephone [facility] [address] Alie Farr, OTR/L Occupational Rehab [address] [facility] [address] [place] [address] [place] [address] [phone] Social History Tobacco Use Types Packs/Day Years Used Date Smoking Tobacco: Never Smokeless Tobacco: Never Alcohol Use Standard Drinks/Week Comments Not Currently 0 (1 standard drink = 0.6 oz pure alcoho l) Sex Assigned at Date Recorded Female 10/30/2020 7:58 AM CDT documented as of this encounter Nursing Notes Alie Farr OTR/L - 06/17/2021 2:02 PM CDT OT note: Patient called and left this therapist a message stating she was upset she was not able to access the exercises that were recommended. She had previously been scheduled for an OT consultation with Isabela Das who at the time spoke to patient over the phone as noted in the chart, however client declined consultation at that time. Returned patient's call today, left a voicemail overviewing the note from Isabela Das's original contact with the patient. Recommend patient call to schedule an appointment if she would like further information on the OT lifestyle renewal program and recommendations for exercises. KRISTINA Damon/L 2:08 PM 06/17/2021 documented in this encounter Plan of Treatment Not on filedocumented as of this encounter Visit Diagnoses Not on filedocumented in this encounter Care Teams Telephonic Nurse Relationship Specialty Start Date End Date Alex Orozco MD PCP - General Family Practice 11/23/19 [address] [place] [address] documented as of this encounter
--- OUTSIDE RECORDS SUMMARY | 2022-02-09 21:14 | XMS_ITS | Encounter Summary ---
:1945 Author [facility] [address] [place] [address] Care Team Providers Name Role Phone Alxe Orozco MD Primary Care Provider Encounter Details Date Type Department Care Team Description 07/02/2021 Telephone [facility] [address] Pain Axel Benedict S, [place] Clinic [address] [place], [place] [id number] [place] [id number] [phone] Social History Tobacco Use Types Packs/Day Years Used Date Smoking Tobacco: Never Smokeless Tobacco: Never Alcohol Use Standard Drinks/Week Comments Not Currently 0 (1 standard drink = 0.6 oz pure alcoho l) Sex Assigned at Date Recorded Female 10/30/2020 7:58 AM CDT documented as of this encounter Nursing Notes Kirti Oakes RN - 07/02/2021 1:44 PM CDT Shama nurse from assisted living calling for patient. Dr. Orozco her PCP gave patient a 2 week supply of oxycodone for her burning attacks. It's helps with the burning pain but not the rigidity attacks she gets. Patient will do office visit tomorrow with you zoom call. She's been only taking the oxyin the evening and the tizanidine bid. Tonight they will start oxycodone morning and evening. She's taking 10 mg in evening. Location of pain: travels up the body from her left toes to her left arm, whole left side body, stroke side Description of pain: burning pain Extremity symptoms(numbness/weakness/tingling): stroke side left side Severity of pain (0-10): 10 When did pain start?: she's had these episodes for a couple of weeks and thy would fade away but nowno longer does it fade off. Same pain (seen for it before) or new pain? Same pain but not going away. What is working/not working to alleviate pain? Tizanidine and oxy 5 mg tabs Bowel or Bladder changes? no documented in this encounter Plan of Treatment Not on filedocumented as of this encounter Visit Diagnoses Not on filedocumented in this encounter Care Teams Surgical Pathologist Relationship Specialty Start Date End Date Alex Orozco MD PCP - General Family Practice 11/23/19 [address] [place] [address] documented as of this encounter
--- OUTSIDE RECORDS SUMMARY | 2022-02-09 21:14 | XMS_ITS | Encounter Summary ---
:1945 Author Organization [facility] Address [address] [place] [address] Care Team Providers Name Role Phone Alex Orozco MD Primary Care Provider Reason for Referral Consult/Transfer Care (Routine) - Incomplete Specialty Diagnoses / Procedures Referred By Contact Refer red To Contact Diagnoses Anxiety and depression (HRC) [place] [address] [place] [address] Referral ID Status Reason Start Date Expiration Date Visits V isits Requested Authorized [id number] Incomplete 04/17/2021 07/17/2022 1 1 Scheduling Instructions Your provider has recommended an appoint ment with Behavioral Health. You may call [phone] to schedule your appointmen t. This recommended service/s may not be covered by your health plan (health insu mikey). To find out your specific benefit coverage, please call the number on your insurance card.?? Please note that in order to maintain access for all patients, [facility] does have a late cancellation policy. In order to avoid being restrict ed from scheduling future appointments in Behavioral Health you will need to cance l at least 24 hours in advance. We request you that you arrive 30 minutes before yo ur first appointment to complete paperwork. TRONIC COMMUNICATIONS TECHNICIAN Reason for Visit Reason Comments Follow-up Encounter Details Date Type Department Care Team Description 04/17/2021 Telemedicine [place] [address] [address] Spas tic hemiplegia affecting nondominant side (HRC) (Primary Dx); Rehabilitative Medic ine DO Neuropathic pain syndrome (non-herpetic) ; [address] [address] Effie León Anxiety and depression; [place], [place] Gait instability [phone] Social History Tobacco Use Types Packs/Day Years Used Date Smoking Tobacco: Never Smokeless Tobacco: Never Alcohol Use Standard Drinks/Week Comments Not Currently 0 (1 standard drink = 0.6 oz pure alcoho l) Sex Assigned at Date Recorded Female 10/30/2020 7:58 AM CDT documented as of this encounter Patient Instructions Patient InstructionsAxel Benedict DO - 04/17/2021 11:20 AM CST Follow-up visit completed by video. Ongoing significant spasticity in the left upper and lower extremities as well as dystonia in the right foot. Anxiety continues to be a significant challenge. She reports that it feels worse with the decreasing dose of clonazepam. Per review of notes with her psychiatrist it appears that this is to potentially initiate opioid therapy. 1. Discussed that certainly this continues to be a very challenging case. I did encourage her to continue with the occupational therapy visits that are scheduled. I am hopeful that this will be a helpful program. Discussed that this will be learning about relaxation exercises and techniques to help manage the patient's anxiety and pain. 2. Continue tizanidine. 3. Patient is scheduled for Botox injections in 2 weeks. 4. I did put in a order for a consult with Psychiatry to see if she would like to establish with mitali Correa psychiatry for management of her severe anxiety and depression. TRONIC COMMUNICATIONS TECHNICIAN documented in this encounter Progress Notes Christina Vaughn RN - 04/17/2021 11:20 AM CST Before we can start this telephone/video visit, the patient verbally consents to the followin. Patient name and date of : confirmed 2. Demonstrates an understanding of the limitations with a telephone/virtual visit: confirmed 3. Physical location of patient in case of emergency: home -assisted living 4. The telehealth visit will be billed to their insurance: confirmed 5. As a reminder, the [facility] number that your provider calls on is random and not monitored. If you have questions, please call the nurse line at [phone] option #2 TRONIC COMMUNICATIONS TECHNICIAN Axel Benedict DO - 04/17/2021 11:20 AM CST PHYSICAL MEDICINE AND REHABILITATION Follow up Chief Complaint: Chief Complaint Patient presents with ??? Follow-up History of Present Illness: Cinthia Wagner is a 75 y.o. 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 She began to experience spasticity on the left side multipleyears. Initially she noted curling of the toes and fingers. Over time the symptoms have progressed. She moved to [place] in 2017. At that time symptoms were more signigicant. She has gone through botox injections on several occasions. She feels that the more recent injections didn't provide significant benefit. Last injections 11/03/20 with 290 units. Patient does have some difficulty recalling prior he medications or treatments that have been trialed. Reviewed previous record for prior medications. Not able to find reason for patient discontinuing baclofen. Noted that it was ordered as p.r.n. in the past Patient lives in a long-term care facility. Follow-up visit by video. Patient continues to experience significant symptoms. She notes that her anxiety has been quite challenging. She is currently undergoing a reduced dose of her clonazepam. She is not sure why, thinks it may be related to a potential opioid therapy but she reports she is not able to review the last note with her psychiatrist. Continues to have significant rigidity in the left upper and lower extremities as well as significant pain in the right foot. Pain today 6/10, 10/10 in the morning. Constant, burning, staying the same. Aggravated by stress/anxiety. Alleviated by medications. Limited response to Botox at the last visit. Mental health: Dr Benitez is her psychiatrist for management of her anxiety and depression. She feels that her anxiety is significant She is scheduled to work with a psychologist randee Chawla. Duloxetine 40 mg daily Tizanidine 2 mg 3 times per day Baclofen cause significant dizziness discontinued Lyrica caused significant somnolence and blurry vision, it was since discontinued. Therapies: PT 2 times per week. She can walk 1 block. Past Medical History: Past Medical History: Diagnosis Date ??? Anxiety (HRC) ??? CKD (chronic kidney disease) (HRC) ??? Hyperlipemia (HRC) ??? Hypertension (HRC) ??? Melanoma (HRC) ??? Prediabetes ??? Stroke (HRC) R frontal hemorrhage, 2011 ??? Thyroid disease (HRC) Medications: The patient has a current medication list which includes the following prescription(s):acetaminophen, clonazepam, duloxetine, fluticasone propionate, hydroxyzine hcl, lansoprazole, levothyroxine, melatonin, metoprolol tartrate, multivitamin, onabotulinumtoxina, polyethylene glycol, ramipril, sertraline, tizanidine, tizanidine, and tizanidine. Allergies: Acyclovir, Adhesive, and Omnicef [cefdinir] Social History: Single Review of Systems: As per history of present illness. All other systems are negative. Physical Examination: Exam deferred Data: Assessment: ICD-10-CM 1. 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 Neuropathic pain syndrome (non-herpetic) M79.2 3. Anxiety and depression ([facility]) F41.9 Behavioral Health F32.A 4. Gait instability R26.81 Recommendations: Follow-up visit completed by video. Ongoing significant spasticity in the left upper and lower extremities as well as dystonia in the right foot. Anxiety continues to be a significant challenge. She reports that it feels worse with the decreasing dose of clonazepam. Per review of notes with her psychiatrist it appears that this is to potentially initiate opioid therapy. 1. Discussed that certainly this continues to be a very challenging case. I did encourage her to continue with the occupational therapy visits that are scheduled. I am hopeful that this will be a helpful program. Discussed that this will be learning about relaxation exercises and techniques to help manage the patient's anxiety and pain. 2. Continue tizanidine. 3. Patient is scheduled for Botox injections in 2 weeks. 4. I did put in a order for a consult with Psychiatry to see if she would like to establish with mitali Correa psychiatry for management of her severe anxiety and depression. We discussed the anatomy of the spine to discuss where the pathology is and the pathophysiology of why the patient is having pain. This plan was discussed with the patient and the patient is in agreement with this plan. The patienthas no further questions or concerns. This visit was completed as a virtual video visit using a synchronous, two-way, audio-video technology platform. Due to the restrictions of the COVID-19 pandemic, a virtual appointment is the preferredmethod of medical assessment whenever possible. All issues as documented above were discussed and addressed. Due to the nature of an audio-video modality, the only components of a physical exam that could be done are the elements supported by direct visual observation. If it was felt that the patient should be evaluated in clinic or in an emergency room setting, then this was discussed with the patient. Patient identification was verified at the start of the visit, including the patient's name, date ofbirth, and physical location in case of emergency. Patient verbally consented to visit and demonstrated an understanding of the limitations of this virtual visit. I discussed with the patient that this visit is a telehealth visit that will be billed to their insurance. We reviewed potential benefits, risks, and confidentiality of telehealth visits. In the event of technical problems, a contingency plan was made. I explained that the appropriateness of telehealth visits is determined by the provider and that patient may need to be seen in clinic in the future. Axel Benedict DO Physical Medicine and Rehabilitation TRONIC COMMUNICATIONS TECHNICIAN documented in this encounter Plan of Treatment Scheduled Referrals Name Type Priority Associated Diagnoses Order S [facility] Behavioral Health Referral Routine Anxiety and depression Ordered: 04/17/2021 documented as of this encounter Visit Diagnoses Diagnosis Spastic hemiplegia affecting nondominant side (HRC) - Primary Spastic hemiplegia affecting nondominant side Neuropathic pain syndrome (non-herpetic) Neuralgia, neuritis, and radiculitis, un specified Anxiety and depression (HRC) Dysthymic disorder Gait instability Abnormality of gait documented in this encounter Care Teams Commercial Ocean Clammer Relationship Specialty Start Date End Date Alex Orozco MD PCP - General Family Practice 11/23/19 [address] [place] [id number] documented as of this encounter
--- OUTSIDE RECORDS SUMMARY | 2022-02-09 21:14 | XMS_ITS | Encounter Summary ---
:1945 Author Organization [facility] Address [address] [place] [address] Care Team Providers Name Role Phone Alex Orozco MD Primary Care Provider Reason for Visit Reason Comments Follow-up Encounter Details Date Type Department Care Team Description 07/03/2021 Telemedicine [facility] [address] Benedict Spas tic hemiplegia affecting nondominant side (HRC) (Primary Dx); Rehabilitative Medic ine DO Focal dystonia; [address] [address] [place] Gait instability; [place], [place] Anxie ty and depression [phone] Social History Tobacco Use Types Packs/Day Years Used Date Smoking Tobacco: Never Smokeless Tobacco: Never Alcohol Use Standard Drinks/Week Comments Not Currently 0 (1 standard drink = 0.6 oz pure alcoho l) Sex Assigned at Date Recorded Female 10/30/2020 7:58 AM CDT documented as of this encounter Patient Instructions Patient InstructionsAxel Benedict DO - 07/03/2021 11:20 AM CDT Follow-up visit completed by video. Patient notes that the Botox injections performed at her last visit only provided mild temporary benefit. She does continue to takes is tizanidine with only mild relief. Continues to experience severe symptoms on the left side with rigidity and muscle spasms. She has noted that she was able to establish with a psychologist and so far this has been going very well. 1. Given patient's lack of response to Botox dosing with 400 units we will plan to increase the doseto 600 units to hopefully provide maximum benefit. 2. Continue tizanidine. 3. Will patient schedule for repeat Botox injections 3 months from the prior injections. documented in this encounter Progress Notes Axel Benedict DO - 07/03/2021 11:20 AM CDT PHYSICAL MEDICINE AND REHABILITATION Follow up Video visit Chief Complaint: Chief Complaint Patient presents with [...] the symptoms have progressed. She moved to [place] in 2017. At that time symptoms were [...] in a long-term care facility. Follow-up visit completed by video. Patient continues to experience significant symptoms on the right side. Muscle rigidity, pain, spasms. Limited benefit from Botox. She did note some temporary reliefbut the dosing does not appear to be sufficient. She continues tizanidine. She continues to be quitedistressed by her symptoms. Pain today 10/10, intermittent, stabbing. Progressing. Denies alleviating factors other than distraction. She does note numbness and weakness in the left arm and leg. Mental health: Dr Benitez is her psychiatrist for management of her anxiety and depression. She feels that her anxiety is significant She has started working with a counselor KULDEEP Dietz Address: [address] [place] [id number] Duloxetine 40 mg daily Tizanidine 2 mg [...] list which includes the following prescription(s):acetaminophen, clonazepam, dantrolene, duloxetine, fluticasone propionate, hydroxyzine hcl, lansoprazole, levothyroxine, melatonin, metoprolol tartrate, multivitamin, onabotulinumtoxina, polyethylene glycol, ramipril, sertraline, tizanidine, and tizanidine. Allergies: Acyclovir, Adhesive, and Omnicef [cefdinir] Social History: Single Review of Systems: As per history of present illness. All other systems are negative. Physical Examination: Exam deferred Data: Assessment: ICD-10-CM 1. Spastic hemiplegia affecting nondominant side (HRC) G81.10 2. 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 Gait instability R26.81 4. Anxiety and depression (HR) F41.9 F32.A Recommendations: Follow-up visit completed by video. Patient notes that the Botox injections performed at her last visit only provided mild temporary benefit. She does continue to takes is tizanidine with only mild relief. Continues to experience severe symptoms on the left side with rigidity and muscle spasms. She has noted that she was able to establish with a psychologist and so far this has been going very well. 1. Given patient's lack of response to Botox dosing with 400 units we will plan to increase the doseto 600 units to hopefully provide maximum benefit. 2. Continue tizanidine. 3. Will patient schedule for repeat Botox injections 3 months from the prior injections. 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
--- OUTSIDE RECORDS SUMMARY | 2022-02-09 21:14 | XMS_ITS | Encounter Summary ---
:1945 Author Organization [facility] Address [address] [place] [address] Care Team Providers Name Role Phone Alex Orozco MD Primary Care Provider Encounter Details Date Type Department Care Team Description 05/25/2021 Telephone [facility] [address] Lucy Benedict DO Rehabilitative Medic ine [address] [place] [address] [place], [place] [id number] [place] [id number] [phone] Social History Tobacco Use Types Packs/Day Years Used Date Smoking Tobacco: Never Smokeless Tobacco: Never Alcohol Use Standard Drinks/Week Comments Not Currently 0 (1 standard drink = 0.6 oz pure alcoho l) Sex Assigned at Date Recorded Female 10/30/2020 7:58 AM CDT documented as of this encounter Nursing Notes Radha Bearden RN - 05/25/2021 10:42 AM CST Per 01/22/21 note patient lives at [facility] and their fax is [phone]. Faxed prescription as requested. Axel Raymond DO - 05/25/2021 8:08 AM CST Received a page over the weekend regarding the patient's significant spasticity since discontinuing the dantrolene. Discussed patient's care with nursing staff. Discussed that I do not know there are other options for management of her symptoms. She had done well with tizanidine in the past. I do wonder if her anxiety may have limited some of the benefit of tizanidine. She has been started on a new medication with Psychiatry. Given her ongoing significant spasticity I reordered the patient's tizanidine. This had provided some benefit in the past. Order signed to start at 2 mg b.i.d.. This was givenas a verbal order. Nursing please fax the updated order to her senior living. ERNATOR documented in this encounter Plan of Treatment Not on filedocumented as of this encounter Visit Diagnoses Not on filedocumented in this encounter Care Teams Sand Wheeler Relationship Specialty Start Date End Date Aelx Orozco MD PCP - General Family Practice 11/23/19 [address] [place] [address] documented as of this encounter
--- OUTSIDE RECORDS SUMMARY | 2022-02-09 21:14 | XMS_ITS | Encounter Summary ---
:1945 Author Organization [employer] Address [address] [place] [address] Care Team Providers Name Role Phone Alex Orozco MD Primary Care Provider Reason for Visit Reason Comments Medication Questions Encounter Details Date Type Department Care Team Description 03/23/2021 Telephone [facility] [address], Medi cation Questions Rehabilitative Medic ine DO [address] [address] [place] [address] [phone] Social History Tobacco Use Types Packs/Day Years Used Date Smoking Tobacco: Never Smokeless Tobacco: Never Alcohol Use Standard Drinks/Week Comments Not Currently 0 (1 standard drink = 0.6 oz pure alcoho l) Sex Assigned at Date Recorded Female 10/30/2020 7:58 AM CDT documented as of this encounter Nursing Notes Radha Bearden RN - 05/25/2021 10:49 AM CST Called Lazara back to follow up on this. She reports the person who was supposed to follow up with her continued to dodge the question and now is no longer employed there. States she is going to ask the new person for an answer and agree's that even if medical cannabis is no longer being pursued for patient its good to know if this is an option or not for patient now or in the future. Lazara has nurse ER line to return call. Radha Vasquez RN - 04/23/2021 2:04 PM CST This nurse has not yet heard back about this. Patient would also like to know if her facility can provide transportation for her to machine operator picker the medical cannabis if approved. Left voice message for Lazara requesting update. Radha Vasquez RN - 04/08/2021 12:30 PM CST Lazara has not heard back yet on this and will follow up on it again and let us know. Radha Vasquez RN - 03/30/2021 2:54 PM CST Updated Lazara who is going to find out if medical cannabis in pill form is allowed at their facility. She will call us back. Axel Raymond DO - 03/30/2021 2:15 PM CST Order signed to remove the p.r.n. tizanidine. I think just the 1 time per day will hopefully be lessanxiety provoking. We can discuss this further at her follow-up visit. Perlita Azevedo RN - 03/30/2021 12:55 PM CST Lazara called back from her [facility], [facility] manage her medications. She is taking Tizanidine 2 mg at 6am -2pm -10 pm. Lazara explained that they offer her 1-2 tablets and she has a hard time deciding how many to take and this confuses her. Lazara thinks it would probably be best to change the order of Tizanidine to 1 tablet three time a day. Pt has a follow up appt later this month with Dr. Benedict. Radha Vasquez RN - 03/30/2021 10:13 AM CST Spoke with MONICA Lyman at Dr. Benitez's office who reports that the plan is to continue seeing the patient on a routine basis with the next appointment being the end of the month. However, Dr. Benitez will continue to taper patient off her clonazepam due to non-compliance with medication. MONICA Goel reports patient calls multiple time a day complaining of medications not working and/or causing side effects and asks to be taken off of them but then calls back later requesting increased dosing in the same medication. Dr. Benitez has recommended that patient follows up again with the pain clinic regarding her pain management. Per note from 03/23/21 patient take Tizanidine 1 tablet TID. Left voice message for Lazara at her [facility]ARE [facility] to confirm that she is still taking the tizanidine TID. When she calls back also [facility] Dr. Benedict, Would you like the patient to follow up with Caren Beltran CNP? Axel Raymond DO - 03/30/2021 7:02 AM CST She has tolerated the tizanidine well in the past. At our last visit it would seem to be working well and we even tried to increase it. I would like to confirm how she is currently taking it. I do think it is important for to continue on a baseline of this medication to help prevent her spasticity from becoming even more severe. I do think that her anxiety is playing a significant role in a lot of her symptoms. The tizanidine should not disrupt her sleep in actually can help with sleep. We should get an updated schedule her for a follow-up visit I would also like to be sure that she has regular follow ups psychiatry. URED [employer]BLE PRODUCTS MAKER Radha Bearden RN - 03/26/2021 4:42 PM CST Patient called hysterically in tears reporting the tizanidine continues to cause her drowsiness. Reminded her that she told us she was going to refuse the medication going forward and that Lazara agreed she can refuse it. Patient reports Lazara is not here right now but she's glad this nurse told her she can refuse it because she did not know that. Patient then ended call. URED [employer]BLE PRODU[employer] MAKER Perlita Stuart RN - 03/23/2021 11:26 AM CST Lazara called in from [facility]. Lazara reports that Cinthia wants to come off of the Tizanidine in the morning. According to Lazara she typically takes 1 tablet of the tizanidine TID. She complains that the tizanidine makes her shaky, tired and rigid. Cinthia has also been complaining of not sleeping well at night. She used to take melatonin at night but has stopped this recently. She also had the clonazepam 0.25 mg decreased from QID to TID by her Psychiatrist on 03/17. She now takes the clonazepam at 8am- 12p- 4pm. I explained to Lazara that Dr. Benedict is out of the clinic this week. Lazara is still going to offerher the tizanidine but Cinthia has the right to refuse taking this medication. Lazara is also going toreach out to Dr. Benitez's office as some of her complaints may have to do with the dose reduction of the clonazepam. Lazara stated that it is difficult to tell what helps and doesn't help with Cinthia as she changes her mind about things constantly. Radha Vasquez RN - 03/23/2021 10:41 AM CST Patient reports that she would like to slowly stop taking tizanidine. Patient is concerned about withdrawal but also states that she will plan to refuse the medication. Patient expressed frustration and became tearful. She declines station gateman and asks for on-call provider to advise on taper. However patient does not know how many tablets she is currently using. Offered to speak with staff or call thembut she declined. States she will ask them to call us back. U[employer]ODU[employer] MAKER documented in this encounter Plan of Treatment Not on filedocumented as of this encounter Visit Diagnoses Not on filedocumented in this encounter Care Teams Outsole Splicer Relationship Specialty Start Date End Date Alex Orozco MD PCP - General Family Practice 11/23/19 [address] [place] [address] documented as of this encounter
--- OUTSIDE RECORDS SUMMARY | 2022-02-09 21:14 | XMS_ITS | Encounter Summary ---
:1945 [facility] Address [address] [place] [address] Care Team Providers Name Role Phone Alex Orozco MD Primary Care Provider Reason for Visit Reason Comments Spasms ANXIETY Encounter Details Date Type Department Care Team Description 07/13/2021 Telephone Careline Unassigned, Provider Spasms; ANXIETY [address] [place], [place] [address] [address] [place] [address] Social History Tobacco Use Types Packs/Day Years Used Date Smoking Tobacco: Never Smokeless Tobacco: Never Alcohol Use Standard Drinks/Week Comments Not Currently 0 (1 standard drink = 0.6 oz pure alcoho l) Sex Assigned at Date Recorded Female 10/30/2020 7:58 AM CDT documented as of this encounter Nursing Notes Radha Bearden, RN - 07/24/2021 8:33 AM CDT Spoke with Lazara at patient [facility] who indicates that patient anxiety has gotten out of control and she has thoughts of wanting to . Per her PCP they were advised to send her to the ED to have her admitted for mental health reasons. They have sent her to different ED's more than once and no one will take her because she does not have a plan to harm herself. None of the anti-anxiety or pain meds she has been given by outpatient providers or the ED including fentanyl patch, ativan, and diazepam have helped. Lazara reports they are at a loss for for what do because the patient requires on-on-one care but they cannot provide that in their [facility]. No requests being made at this time but this is an u pdate for Dr. Benedict. Lazara indicates patient may be calling in again with requests but the [facility] understands per the note below that we have run out of options for antispasmodics. Axel Benedict DO - 07/17/2021 1:34 PM CDT We unfortunately do not have other treatment options to offer as she is not other antispasmodics or higher doses the spasm. Love Sagastume - 07/13/2021 10:45 AM CDT Verified patient identity using three identifiers: Yes Caller's relationship to patient: Other Staff Do you get your primary care at a HP or PN clinic: PN Are you calling about a related concern: No Do you see a PN specialist for the reason you are calling? Yes HP Select Member: No Message to Provider Patient would like to send a message to his/her: provider Name of patient's provider: Jak Summarize the patient's question or concern (if the patient is currently experiencing symptoms, ask them if they would like to speak to a CareLine Nurse): Spasms on left Stroke side causing a lot of anxiety and pain. Please advise Is it okay to leave a detailed message on your voicemail? No Patient was informed that if the call is after 3:00 pm or on a weekend/holiday, they may not get a call back today: No Plan: Message routed to the Provider Care Team Pool. documented in this encounter Plan of Treatment Not on filedocumented as of this encounter Visit Diagnoses Not on filedocumented in this encounter Care Teams Stonecutter Hand Relationship Specialty Start Date End Date Alex Orozco MD PCP - General Family Practice 11/23/19 [facility] [place] [address] documented as of this encounter
--- OUTSIDE RECORDS SUMMARY | 2022-02-09 21:14 | XMS_ITS | Encounter Summary ---
:1945 Author Organization [facility] Address [address] [place] [address] Care Team Providers Name Role Phone Alex Orozco MD Primary Care Provider Reason for Visit Reason Comments Refill Encounter Details Date Type Department Care Team Description 06/30/2021 Refill [facility] Axel Benedict, DO Refill Medicine [address] [facility] [address] [place] [address] [place] [address] [phone] Social History Tobacco Use Types Packs/Day Years Used Date Smoking Tobacco: Never Smokeless Tobacco: Never Alcohol Use Standard Drinks/Week Comments Not Currently 0 (1 standard drink = 0.6 oz pure alcoho l) Sex Assigned at Date Recorded Female 10/30/2020 7:58 AM CDT documented as of this encounter Nursing Notes Mariely Ibarra RN - 06/30/2021 12:28 PM CDT Last OV: 04/17/21 Next OV: 07/03/21 Per PAPER CUP MACHINE TENDER, last refill date & amt: 02/02/21 #90 Last OV plan/Problem list note: Recommendations: Follow-up visit completed by video. Ongoing [...] if she would like to establish with [facility] for management of her severe anxiety and depression. ?? documented in this encounter Plan of Treatment Not on filedocumented as of this encounter Visit Diagnoses Not on filedocumented in this encounter Care Teams Waterside Worker Relationship Specialty Start Date End Date Alex Orozco MD PCP - General Family Practice 11/23/19 [address] [place] [address] documented as of this encounter
--- OUTSIDE RECORDS SUMMARY | 2022-02-09 21:14 | XMS_ITS | Encounter Summary ---
:1945 Author Organization [facility] Address [address] [place] [address] Care Team Providers Name Role Phone Alex Orozco MD Primary Care Provider Reason for Visit Reason Onset Date Comments ERRONEOUS ENTRY 05/06/2021 Encounter Details Date Type Department Care Team Description 05/01/2021 Telemedicine [facility] Mateo Ibarra, ERRONEOUS ENTRY [address] [place], [place] [address] [place], [place] [phone] (Wo rk) Social History Tobacco Use Types Packs/Day Years Used Date Smoking Tobacco: Never Smokeless Tobacco: Never Alcohol Use Standard Drinks/Week Comments Not Currently 0 (1 standard drink = 0.6 oz pure alcoho l) Sex Assigned at Date Recorded Female 10/30/2020 7:58 AM CDT documented as of this encounter Patient Instructions Patient InstructionsElizabeth Guadarrama RN - 05/01/2021 8:50 AM HOME ECONOMIST Please note the number that your provider called from is a non-working number for return calls. Please contact us using [email or web address] or by calling the [facility] nurse line at [phone]. To set up your next appointment, please call the [facility] scheduling line at [phone]. Two easy ways to stay connected with what is going on at [facility]: 1. If you have not already done so, we encourage you to sign up (for free) to be on our e-mailing list, so that you will receive information about upcoming classes, events, and activities hosted by [facility]! To sign up, simply send an email to [email or web address] indicating that you would like to be included. 2. Follow us on Facebook to learn more about current news and upcoming events. Find us at [facility] [address]! ECONOMIST documented in this encounter Progress Notes Mateo Ibarra MD - 05/01/2021 8:50 AM CST This encounter is an erroneous entry. Please disregard. ECONOMIST documented in this encounter Plan of Treatment Not on filedocumented as of this encounter Visit Diagnoses Diagnosis ERRONEOUS ENTRY - Primary documented in this encounter Care Teams Market Research Associate Relationship Specialty Start Date End Date Alex Orozco MD PCP - General Family Practice 11/23/19 [address] [place] [address] documented as of this encounter
--- OUTSIDE RECORDS SUMMARY | 2022-02-09 21:14 | XMS_ITS | Encounter Summary ---
:1945 Author Organization [facility] Address [address] [place] [address] Care Team Providers Name Role Phone Alex Orozco MD Primary Care Provider Reason for Visit Reason Comments ERRONEOUS ENTRY Encounter Details Date Type Department Care Team Description 05/31/2021 Telephone Careline Unassigned, Provider ERRONEOUS ENTRY [address] [place], [place] [address] [place] [address] Social History Tobacco Use Types Packs/Day Years Used Date Smoking Tobacco: Never Smokeless Tobacco: Never Alcohol Use Standard Drinks/Week Comments Not Currently 0 (1 standard drink = 0.6 oz pure alcoho l) Sex Assigned at Date Recorded Female 10/30/2020 7:58 AM CDT documented as of this encounter Nursing Notes Valeria Root - 05/31/2021 2:52 PM CST Error RVISOR TYPE DISK QUALITY CONTROL documented in this encounter Plan of Treatment Not on filedocumented as of this encounter Visit Diagnoses Not on filedocumented in this encounter Care Teams Family Law Attorney Relationship Specialty Start Date End Date Alex Orozco MD PCP - General Family Practice 11/23/19 [facility] [address] documented as of this encounter
--- OUTSIDE RECORDS SUMMARY | 2022-02-09 21:14 | XMS_ITS | Encounter Summary ---
:1945 Author Organization [facility] Address [address] [place] [address] Care Team Providers Name Role Phone Alex Orozco MD Primary Care Provider Reason for Visit Reason Comments Prior Authorization For Medication Botox Encounter Details Date Type Department Care Team Description 03/30/2021 Telephone [facility] [address] Authorization Rehabilitative Medic ine DO For Medication (Botox) [address] [address] [place] [address] [phone] Social History Tobacco Use Types Packs/Day Years Used Date Smoking Tobacco: Never Smokeless Tobacco: Never Alcohol Use Standard Drinks/Week Comments Not Currently 0 (1 standard drink = 0.6 oz pure alcoho l) Sex Assigned at Date Recorded Female 10/30/2020 7:58 AM CDT documented as of this encounter Nursing Notes Rita Hart RN - 04/09/2021 9:17 AM CST I called and spoke to inside outside sales representative Milvia @ [facility], CPT code: J0585 Botox 400 units does not need prior authorization and is a billable code for the patient. Med can be buy and bill. Call ref# [id number] LM for patient that she can schedule this procedure as no PA needed, schedule on/after 04/29/21. I also spoke with sister Julieta per message below. Radha Vasquez RN - 04/08/2021 4:53 PM CST Provider confirmed via routing comment that we first get PA and then schedule patient. Routing to staff member who obtains PA's for botox. Please call patient sister to discuss. Thank you. Radha Vasquez RN - 04/08/2021 4:37 PM CST Patient called tearfully shouting and demanded appointment for botox. Calmed patient down and she explained that she was told by someone that insurance will not approve botox unless there is an appointment scheduled first. Nurse does not see any documentation of that conversation and agreed to check with the provider and staff who handles the PA's for botox. Patient requests we call her sister Julieta back at [phone]. Radha Vasquez RN - 03/30/2021 3:36 PM CST The sister called back again and reports it is [facility] Medicare Advantage PPO ([id number]). She wanted to make sure we also had the 5 digit number behind the health plan name. Informed her typically all we needis the member ID, group number and phone number which we have. Rita Tam RN - 03/30/2021 9:51 AM CST [facility] Perlita Azevedo RN - 03/30/2021 9:04 AM CST Pt has new insurance for this year. She does get Botox with Dr. Benedict, new insurance as below. [facility] ID: [id number] Group: [id number] ER documented in this encounter Plan of Treatment Not on filedocumented as of this encounter Visit Diagnoses Not on filedocumented in this encounter Care Teams Hand Pleater Relationship Specialty Start Date End Date Alex Orozco MD PCP - General Family Practice 11/23/19 [address] [place] [address] documented as of this encounter
--- OUTSIDE RECORDS SUMMARY | 2022-02-09 21:14 | XMS_ITS | Encounter Summary ---
:1945 Author Organization [employer] Address [address] [place] [address] Care Team Providers Name Role Phone Alex Orozco MD Primary Care Provider Reason for Visit Reason Onset Date Comments ERRONEOUS ENTRY 09/22/2021 Encounter Details Date Type Department Care Team Description 09/18/2021 Telemedicine [facility] Mateo Ibarra, Encounters for [address] [place] [address] (Primary Dx) [place], [place] [address] [place], [place] [phone] Social History Tobacco Use Types Packs/Day Years Used Date Smoking Tobacco: Never Smokeless Tobacco: Never Alcohol Use Standard Drinks/Week Comments Not Currently 0 (1 standard drink = 0.6 oz pure alcoho l) Sex Assigned at Date Recorded Female 10/30/2020 7:58 AM CDT documented as of this encounter Patient Instructions Patient InstructionsElizabeth Guadarrama RN - 09/18/2021 8:05 AM CDT Please note the number that your provider called from is a non-working number for return calls. Please contact us using [email or web address] or by calling the [facility] nurse line at [phone]. To set up your next appointment, please call the [facility] scheduling line at [phone]. Two easy ways to stay connected with what is going on at [facility]: If you have not already done so, we encourage you to sign up (for free) to be on our e-mailing list,so that you will receive information about upcoming classes, events, and activities hosted by [facility]! To sign up, simply send an email to [email or web address] indicating that you would like to be included. 2. Follow us on Facebook to learn more about current news and upcoming events. Find us at [facility] [address]! documented in this encounter Progress Notes Mateo Ibarra MD - 09/18/2021 12:50 PM CDT This encounter is an erroneous entry. Please disregard. documented in this encounter Plan of Treatment Not on filedocumented as of this encounter Visit Diagnoses Diagnosis Encounters for administrative purposes - Primary Encounters for unspecified administrativ e purpose documented in this encounter Care Teams Machine Shop Lead Man Relationship Specialty Start Date End Date Alex Orozco MD PCP - General Family Practice 11/23/19 [address] [place] [address] documented as of this encounter
--- OUTSIDE RECORDS SUMMARY | 2022-02-09 21:14 | XMS_ITS | Encounter Summary ---
:1945 Author Organization [facility] Address [address] [place] [address] Care Team Providers Name Role Phone Alex Orozco MD Primary Care Provider Reason for Visit Reason Comments ANXIETY Encounter Details Date Type Department Care Team Description 08/31/2021 Telephone [facility] [address], ANXIETY Rehabilitative Medic ine [address] [place] [address] [place] [address] [phone] Social History Tobacco Use Types Packs/Day Years Used Date Smoking Tobacco: Never Smokeless Tobacco: Never Alcohol Use Standard Drinks/Week Comments Not Currently 0 (1 standard drink = 0.6 oz pure alcoho l) Sex Assigned at Date Recorded Female 10/30/2020 7:58 AM CDT documented as of this encounter Nursing Notes Radha Bearden RN - 08/31/2021 10:51 AM CDT Patient called and request prescription for Valium. Reports she got it in an ED in [place] and it seemed to calm her down. Asked patient if this is for anxiety. She said it is. Calmly informed her that Dr. Benedict is a Food Photographer and does not manage anxiety. Informed her this request will need to come from her Psychiatrist or PCP. Patient immediately began shouting at nurse that her Psychologist or Psychiatrist instructed her to contact Dr. Benedict for this prescription. Then patient ended the call without nurse being able to say anything further. Nurse unable to forward message to PCP/Psychiatry as they are with [facility]. documented in this encounter Plan of Treatment Not on filedocumented as of this encounter Visit Diagnoses Not on filedocumented in this encounter Care Teams Step Finisher Relationship Specialty Start Date End Date Alex Orozco MD PCP - General Family Practice 11/23/19 [address] [place] [address] documented as of this encounter
--- OUTSIDE RECORDS SUMMARY | 2022-02-09 21:14 | XMS_ITS | Encounter Summary ---
:[address] [facility] Address [address] [place] [address] Care Team Providers Name Role Phone Alxe Orozco MD Primary Care Provider Reason for Visit Reason Comments CHRONIC PAIN Therapies (Routine) - Closed Specialty Diagnoses / Procedures Referred By Contact Refer red To Contact Diagnoses Neuropathic pain syndrome (non-herpetic) Spastic hemiplegia affecting nondominant side (HRC) Anxiety and depression (HRC) Axel Benedict, [address] [place] [address] Referral ID Status Reason Start Date Expiration Date Visits Requ ested Visits Authorized [id number] Closed 01/07/2021 01/07/2022 1 111 Encounter Details Date Type Department Care Team Description 04/29/2021 Telemedicine [place] [address] Isabela Das, Neurop athic pain syndrome (non-herpetic) (Primary Dx); Occupational Rehab OTR/L Spastic hemiplegia affecting nondominant side (HRC) [address] [facility] [address] [place] [address]. [place] [address] [phone] Social History Tobacco Use Types Packs/Day Years Used Date Smoking Tobacco: Never Smokeless Tobacco: Never Alcohol Use Standard Drinks/Week Comments Not Currently 0 (1 standard drink = 0.6 oz pure alcoho l) Sex Assigned at Date Recorded Female 10/30/2020 7:58 AM CDT documented as of this encounter Progress Notes Isabela Das OTR/Clari - 04/29/2021 1:00 PM CST Non-Billable Appointment: Attempted patient for scheduled video visit with OT [facility]. Sent link x2 to patient's email and phone number. Client did not join video visit so OT providercalled over the phone. Patient reported she has difficulty with technology and was unsure why she had been scheduled with OT and unsure how OT could help with her concerns. Reports main concern is ongoing rigidity/spasticity in her L UE and LE and pain has not been as severe lately as she has gotten used to it. Patient sounding tearful over the phone. OT provided therapeutic listening and validation and provided information on what treatments are offered in [facility] including non-medication strategies to support pain management, overall wellbeing, and to help address impact of anxiety and stress on symptoms. Client reports she has a nursing aid in her long-term care facility help her with L UE/LE ROM exercises but this is not on daily basis. Encouraged client to see if aid can complete this daily while helping out with other ADLs and also instruct client in self PROM exercisesusing R UE if possible so she can also do some on her own. Additionally provided client with information on resources related to stress/anxiety management including online resources (patient reported she can access [employer] on her computer) for guided relaxation exercises and calming music. Patient receptive to suggestions but reported she would like to decline completing OT eval today and cancel remaining appointments in the future. Reports she lives in [place] and it would be a far commute to the clinic and she does not have reliable transportation. Provided information on this to referring provider. KRISTINA Garcia/Clari 04/29/2021, 1:36 PM UNT RETENTION REPRESENTATIVE documented in this encounter Plan of Treatment Scheduled Referrals Name Type Priority Associated Diagnoses Order S mindy Occupational Therapy Referral Routine Neuropathic pain syn drome Ordered: 01/07/2021 (non-herpetic) Spastic hemiplegia affecting nondominant side (HRC) Anxiety and depression documented as of this encounter Visit Diagnoses Diagnosis Neuropathic pain syndrome (non-herpetic) - Primary Neuralgia, neuritis, and radiculitis, un specified Spastic hemiplegia affecting nondominant side (HRC) Spastic hemiplegia affecting nondominant side documented in this encounter Care Teams Fiberglasser Relationship Specialty Start Date End Date Alex Orozco MD PCP - General [facility] 11/23/19 [address] [place] [address] documented as of this encounter
--- OUTSIDE RECORDS SUMMARY | 2022-02-09 21:14 | XMS_ITS | Encounter Summary ---
:1945 Author Organization [facility] Address [address] [place] [address] Care Team Providers Name Role Phone Alex Orozco MD Primary Care Provider Reason for Visit Reason Comments Refill Encounter Details Date Type Department Care Team Description 04/10/2021 [facility] Axel Benedict, DO Refill Medicine [address] [facility] [address] [place] [address] [place] [address] [phone] Social History Tobacco Use Types Packs/Day Years Used Date Smoking Tobacco: Never Smokeless Tobacco: Never Alcohol Use Standard Drinks/Week Comments Not Currently 0 (1 standard drink = 0.6 oz pure alcoho l) Sex Assigned at Date Recorded Female 10/30/2020 7:58 AM CDT documented as of this encounter Nursing Notes Perlita Stuart, RN - 04/10/2021 11:14 AM CST Last OV: 03/06/2021 Next OV: 04/17/2021 PRODUCTION MANAGER documented in this encounter Plan of Treatment Not on filedocumented as of this encounter Visit Diagnoses Not on filedocumented in this encounter Care Teams Adult Secondary Education Instructor Relationship Specialty Start Date End Date Alex Orozco MD PCP - General Family Practice 11/23/[address] [place] [address] documented as of this encounter
--- OUTSIDE RECORDS SUMMARY | 2022-02-09 21:14 | XMS_ITS | Encounter Summary ---
:1945 Author Organization [facility] Address [address] [place] [address] Care Team Providers Name Role Phone Alex Orozco MD Primary Care Provider Reason for Visit Reason Comments Medication Questions Encounter Details Date Type Department Care Team Description 09/02/2021 Telephone [facility] [address] Axel Benedict, Medi cation Questions Rehabilitative Medic ine DO [address] [address] [place] [address] [phone] Social History Tobacco Use Types Packs/Day Years Used Date Smoking Tobacco: Never Smokeless Tobacco: Never Alcohol Use Standard Drinks/Week Comments Not Currently 0 (1 standard drink = 0.6 oz pure alcoho l) Sex Assigned at Date Recorded Female 10/30/2020 7:58 AM CDT documented as of this encounter Nursing Notes La Nena Banda RN - 09/02/2021 2:49 PM CDT FYI- pt did schedule f/u with Dr. Ibarra on September 18. La Nena Banda RN - 09/02/2021 11:34 AM CDT Pt also called the Dr. Ibarra's office multiple times this morning and has left emotional messages stating she is having horrible spasms. Per Dr. Fairbanks's (in phone note from yesterday): Lyrica, tizanidine and baclofen have all been tried. They can all make her sleepy, and she had issues previously with this. I think it is best that one provider is managing spasms / spasticity medications, otherwise it will get too confusing. Dr. Benedict is currently prescribing tizanidine. ?? Mateo Ibarra MD Looks like she has also called [facility] and they advised she call 911, which she refused to do. ?? Christina Vaughn RN - 09/02/2021 11:03 AM CDT Patient calling with questions regarding a medication she was [place] [address] Ibarra in Neurology. Patient states she was transferred to our department and states Dr. Ibarra is not familiarwith the medication. Patient states she has been waking up daily with increased spasticity after stopping this medication and that it was not a muscle relaxant. Patient is taking tizanidine. Patient was upset that she keeps being transferred and was crying on the phone. Patient was encouraged to take deep breaths during phone call. Patient hung up the phone saying, Thank you for nothing documented in this encounter Plan of Treatment Not on filedocumented as of this encounter Visit Diagnoses Not on filedocumented in this encounter Care Teams Kettle Operator Relationship Specialty Start Date End Date Alex Orozco MD PCP - General Family Practice 11/23/19 [address] [place] [address] documented as of this encounter
--- OUTSIDE RECORDS SUMMARY | 2022-02-09 21:14 | XMS_ITS | Encounter Summary ---
:1945 Author Organization [facility] Address [address] [place] [address] Care Team Providers Name Role Phone Alex Orozco MD Primary Care Provider Reason for Visit Reason Comments Medication Request Encounter Details Date Type Department Care Team Description 09/01/2021 Telephone [facility] Rozina Beckett, renewable energy broker Request [address] [place], [place] [address] Social History Tobacco Use Types Packs/Day Years Used Date Smoking Tobacco: Never Smokeless Tobacco: Never Alcohol Use Standard Drinks/Week Comments Not Currently 0 (1 standard drink = 0.6 oz pure alcoho l) Sex Assigned at Date Recorded Female 10/30/2020 7:58 AM CDT documented as of this encounter Nursing Notes Elizabeth Guadarrama RN - 09/02/2021 10:17 AM CDT Patient call back requesting a medication for her spasms in arms and legs. She was not sure of the name of it. Wants it refilled to her pharmacy. Did call back and left a detailed message asking her to contact Dr Benedict's office regarding this medication and if it was Tizanidine that a year supply was already sent to her pharmacy. oRzina Beckett RN - 09/01/2021 4:22 PM CDT Attempted call back, left message for Cinthia that Dr. Ibarra advised for her to check with Dr. Benedict regarding any other medications for spasticity. Mateo Ibarra MD - 09/01/2021 4:08 PM CDT Lyrica, tizanidine and baclofen have all been tried. They can all make her sleepy, and she had issues previously with this. I think it is best that one provider is managing spasms / spasticity medications, otherwise it will get too confusing. Dr. Benedict is currently prescribing tizanidine. Mateo Ibarra MD Rozina Beckett RN - 09/01/2021 8:41 AM CDT Cinthia left a message that Dr. Ibarra used to prescribe some medication to take during the night forher spasms and she stopped using it but now wants to go back on it. From review of her notes it appears she has tried several that she didn't tolerate. Baclofen is what Dr. Ibarra had prescribed. Looks like physiatry is managing the spacticity now and she is currently on Tizanidine. Please advise if patient should be directed to call Dr. Benedict instead? documented in this encounter Plan of Treatment Not on filedocumented as of this encounter Visit Diagnoses Not on filedocumented in this encounter Care Teams Byproducts Extractor Relationship Specialty Start Date End Date Alex Orozco MD PCP - General Family Practice 11/23/19 [address] [place] [address] documented as of this encounter
--- OUTSIDE RECORDS SUMMARY | 2022-02-09 21:14 | XMS_ITS | Encounter Summary ---
:1945 Author Organization [facility] Address [address] [place] [address] Care Team Providers Name Role Phone Alex Orozco MD Primary Care Provider Reason for Visit Reason Comments Medication Request Encounter Details Date Type Department Care Team Description 04/23/[address] [facility] [address] Axel Benedict, Jenelle cation Request Rehabilitative Medic ine DO [address] [address] [place] [address] [place], [place] [phone] (Wo rk) Social History Tobacco Use Types Packs/Day Years Used Date Smoking Tobacco: Never Smokeless Tobacco: Never Alcohol Use Standard Drinks/Week Comments Not Currently 0 (1 standard drink = 0.6 oz pure alcoho l) Sex Assigned at Date Recorded Female 10/30/2020 7:58 AM CDT documented as of this encounter Nursing Notes Radha Bearden RN - 04/24/2021 3:44 PM CST Updated Lazara at [facility] who reports they received the order. Nurse faxed additional copy to Lazara just in case. Lazara understands this is to be given PRN in addition to the TID dosing. No further concerns noted. OR MEDIA BUYER Axel Benedict DO - 04/24/2021 2:41 PM CST Signed a new order for once daily tizanidine 2 mg as needed. Specified that this is in addition to her 2 mg t.i.d.. Nursing staff please communicate with the facility staff. OR MEDIA BUYER Christina Vaughn RN - 04/23/2021 3:24 PM CST Patient calling to add to the message that Dr. Bentiez had increased clonazepam from BID to TID. OR MEDIA BUYER Radha Bearden RN - 04/23/2021 2:00 PM CST Patient called to request that her tizanidine be increased to what it used to be. Informed her it has not been prescribed more than TID in the past. Patient is not sure if it is being given to her TID currently even though it is currently prescribed that way. She requests an additional order for tizandine 1 tablet PRN so she can take it 4 times daily if needed. However she does not want this ordered if it is going to cause terrible side effects. Reports she continues to have shakiness and the reduction of her clonazepam is not helping. Please advise. OR MEDIA BUYER documented in this encounter Plan of Treatment Not on filedocumented as of this encounter Visit Diagnoses Not on filedocumented in this encounter Care Teams Estimator Lumber Relationship Specialty Start Date End Date Alex Orozco MD PCP - General Family Practice 11/23/19 [address] [place] [address] documented as of this encounter
--- OUTSIDE RECORDS SUMMARY | 2022-02-09 21:14 | XMS_ITS | Encounter Summary ---
:1945 Author Organization [facility] Address [address] [place] [address] Care Team Providers Name Role Phone Alex Orozco MD Primary Care Provider Encounter Details Date Type Department Care Team Description 05/06/2021 Telemedicine [facility] Mateo Ibarra, Spasticity (Primary Dx); [address] pain; Drive [address] [facility] Abnormal involuntary movemen t [place], [place] [address] [place], [place] [phone] (Wo rk) Social History Tobacco Use Types Packs/Day Years Used Date Smoking Tobacco: Never Smokeless Tobacco: Never Alcohol Use Standard Drinks/Week Comments Not Currently 0 (1 standard drink = 0.6 oz pure alcoho l) Sex Assigned at Date Recorded Female 10/30/2020 7:58 AM CDT documented as of this encounter Patient Instructions Patient InstructionsElizabeth Guadarrama RN - 05/06/2021 2:50 PM CURING ROOM WORKER Please note the number that your provider called from is a non-working number for return calls. Please contact us using [employer] or by calling the [place] nurse line at [phone]. To set up your next appointment, please call the [facility] scheduling line at [phone]. Two easy ways to stay connected with what is going on at [place]: 1. If you have not already done so, we encourage you to sign up (for free) to be on our e-mailing list, so that you will receive information about upcoming classes, events, and activities hosted by [facility]! To sign up, simply send an email to [email or web address] indicating that you would like to be included. 2. Follow us on Facebook to learn more about current news and upcoming events. Find us at [facility]! NG ROOM WORKER documented in this encounter Progress Notes Mtaeo Ibarra MD - 05/06/2021 2:50 PM CST [facility] Phone Follow-up Note History of Present Illness: Cinthia Wagner is a 75 y.o. female with history of right frontal stroke??(likely hemorrhage),??melanoma, hypertension, pre diabetes, CKD, thyroid disease who presents in follow-up for??her stiffness, pain, at this point felt to be related to her prior stroke.?She has a history of left hemiplegia following stroke in 2010. However starting in she developed increasing stiffness on the left side as well as micrographia, right hand and head tremor and toe curling in the feet as well as shuffling.??[place] to possibly have a parkinsonian disorder given symptoms however did not respond to up to 3 tabs TID of??carbidopa/levodopa??25/100??and a LORIN was negative, thus thisnow seems less likely.??Workup has also included MRI of brain and cervical spine without explanation.??Spasticity now being treated by physiatry. She reports two seizures today. Reports that she had an episode of stiffening of the left arm, andit coming up into her chest lasting a few minutes. Had another episode within 15 minutes. Never had this before. She did stop her tizanidine. No alteration in level of consciousness. Reports she could still move the left arm during the episode somewhat. She reports having an episode of stiffening of the left leg previously, about two years ago as well. She is looking for new psychologist. This has been difficult and frustrating. Assessment/Plan: 75 year-old female with spasticity, neuropathic pain s/p prior right frontal hemorrhage. I am not sure these episodes were definitively seizures. Given her spasticity a muscle spasm isanother possibility. We discussed obtaining an EEG but she prefers to hold off due to transportation issues. We will monitor her clinically. If she has another episode will see if it can be filmed but this may be difficult. Would be hesitant to start AED without more clear evidence this is a seizure given issues with prior medication side effects and polypharmacy. Total time in discussion with patient 20 min Note dictated using voice recognition software. Mateo Ibarra MD NG ROOM WORKER documented in this encounter Plan of Treatment Not on filedocumented as of this encounter Visit Diagnoses Diagnosis Spasticity - Primary Abnormal involuntary movements Neuropathic pain Neuralgia, neuritis, and radiculitis, un specified Abnormal involuntary movement Abnormal involuntary movements documented in this encounter Care Teams Records Analyst Relationship Specialty Start Date End Date Alex Orozco MD PCP - General Family Practice 11/23/19 [address] [place] [address] documented as of this encounter
--- OUTSIDE RECORDS SUMMARY | 2022-02-09 21:14 | XMS_ITS | Clinical Summary ---
:1945 Author Organization [facility] Address [address] [place] [address] Care Team Providers Name Role Phone Alex Orozco MD Primary Care Provider Source Comments You are receiving this document as you are listed as the primary care provider,follow-up provider, or the patient has been referred to you for consultation.This is in compliance with the Medicare and Medicaid EHR Incentive Program,which states Providers who transition their patient to another setting of careor provider of care or refers their patient to another provider of care shouldprovide summarycare record for each transition of care or referral. Ebook Glue Allergies Active Allergy Reactions Severity Noted Date Comments Acyclovir Rash 12/21/2019 Adhesive 12/21/2019 Cefdinir 12/21/2019 Loose stools Medications Medication Sig Dispensed Refills Start Date End Date Status acetaminophen (TYLENOL) Take 1,000 mg by 0 Active 500 MG tablet mouth three times a day. Maximum acetaminophen dose is 4000 mg in 24 hours metoprolol tartrate Take 50 mg by 0 Active (LOPRESSOR) 50 MG mouth two times a tablet day. multivitamin Take 1 Tablet by 0 Active (THERAGRAN) tablet mouth daily. ramipril (ALTACE) 10 MG Take 10 mg by 0 Active capsule mouth two times a day. polyethylene glycol Take by mouth 0 Active (MIRALAX) 17 g packet daily as needed. clonazePAM (KLONOPIN) Take 0.5 mg by 0 Active 0.5 MG tablet mouth three times a day. OnabotulinumtoxinA 300 Units. 200 units: [id number]; exp 07/19 0 Active (BOTOX IJ) 100 units: [id number]; fluticasone propionate 1 [place] by Nasal 0 06/16/2020 Active (FLONASE) 50 MCG/ACT route daily. nasal solution levothyroxine Take 25 mcg by 0 04/29/2020 Active (SYNTHROID) 25 MCG mouth daily. tablet lansoprazole (PREVACID) Take 30 mg by 0 Active 30 MG capsule mouth daily. melatonin 3 MG tablet Take 1 Tablet by 90 Tablet 3 12/03/2020 Active mouth daily at bedtime. hydrOXYzine HCl Take 1 Tablet by 30 Tablet 0 01/02/2021 Active (ATARAX) 25 MG tablet mouth every 8 hours as needed for Anxiety or Pain. Additional Information Patient not taking. Reported on 09/25/2021 tiZANidine (ZANAFLEX) 2 MG Take 1 Tablet by mouth 30 Tablet 11 04/24/2021 Active tablet once as needed (Once daily as needed, to be taken in addition to other 2 mg tablets TID). Additional Information Patient taking differently: 2 mg Oral DAILY, (No PRN reasons reported), Plus 1 daily as needed., Reported on 09/25/2021 dantrolene (DANTRIUM) 25 MG Take 1 Capsule (25 mg) by 90 Capsule 1 05/05/2021 Active capsule mouth three times a day. Start with 1 capsule in the morning x3 days, increase to 1 capsule 2 times per day x3 days then increase to 1 capsule 3 times per day. Additional Information Patient not taking. Reported on 09/25/2021 tiZANidine (ZANAFLEX) 2 MG Take 1 Tablet (2 mg) by 180 Tablet 3 05/25/2021 Active tablet mouth two times a day. Additional Information Patient not taking. Reported on 09/25/2021 DULoxetine (CYMBALTA) 60 MG TAKE 1 CAPSULE BY MOUTH 28 Capsule 12 06/30/2021 Active capsule DAILY amitriptyline (ELAVIL) 10 MG Take 10 mg by mouth two 0 07/29/2021 Active tablet times a day. 5p-7:30p escitalopram oxalate Take 20 mg by mouth 0 2 Active (LEXAPRO) 20 MG tablet daily at bedtime. gabapentin (NEURONTIN) 100 Take 200 mg by mouth 0 Active MG capsule two times a day. 12p-Bedtime oxybutynin (DITROPAN XL) 5 Take 5 mg by mouth 0 08/26 Active MG 24 hour release tablet daily. bisacodyl (DULCOLAX) 10 MG Insert 10 mg rectally 0 0 04/30/2021 Active suppository daily as needed. LORazepam (ATIVAN) 0.5 MG Take 0.5 mg by mouth 0 Active tablet two times daily as needed. oxyCODONE (ROXICODONE) 5 MG Take 2 Tablets by mouth 0 08/17/2021 Active immediate release tablet daily as needed. senna (SENOKOT) 8.6 MG Take 1 Tablet by mouth 0 06/27 Active tablet two times daily as needed. Active Problems Problem Noted Date Adenomatous colon polyp 08/13/2020 Overview: Formatting of this note might be differe nt from the original. Colonoscopy 07/2020 3 small polyps, repea t in 5 years with propofol Chronic GERD 08/06/2020 Spastic hemiplegia affecting nondominant side 02/04/20 Acquired hypothyroidism 06/11/2016 Anxiety and depression 06/11/2016 Chronic constipation 06/11/2016 Contracture, left hand 06/11/2016 Gait instability 06/11/2016 Family History Medical History Relation Name Comments Parkinsons Negative Family History Social History Tobacco Use Types Packs/Day Years Used Date Smoking Tobacco: Never Smokeless Tobacco: Never Alcohol Use Standard Drinks/Week Comments Not Currently 0 (1 standard drink = 0.6 oz pure alcoho l) Sex Assigned at Date Recorded Female 10/30/2020 7:58 AM CDT Last Filed Vital Signs Vital Sign Reading Time Taken Comments Blood Pressure 136/58 05/05/2021 1:00 PM WAREHOUSE DIRECTOR Pulse 65 05/05/2021 1:00 PM WAREHOUSE DIRECTOR Temperature - - Respiratory Rate 12 11/03/2020 9:43 AM CDT Oxygen Saturation - - Inhaled Oxygen Concentration - - Weight 59 kg (130 lb) 08/08/2020 2:06 PM CDT Height - - Body Mass Index - - Plan of Treatment Health Maintenance Due Date Last Done Comments Hep C Screening (Preventive 1945 Services) COVID-19 Vaccine (#1) 05/27/1946 Dexa 11/27/2008 Medicare Annual Wellness 03/28/2021 Visit Influenza (#1) 2021 01/12/2021, 01/03/2020, 12/28/2018, Additional history exists DTaP/Tdap/Td (2 - Tdap) 05/19/2028 05/19/2018 Pneumococcal 65+ Yrs Completed 01/30/2016, 01/01/2016, 12/27/2014 Zoster/Shingles Completed 11/09/2018, 09/05/2018, 02/14/2013 HepA Aged Out No longer eligib le based on patient 's age to complete this topic HepB Aged Out No longer eligib le based on patient 's age to complete this topic Hib Aged Out No longer eligib le based on patient 's age to complete this topic IPV (Polio) Aged Out No longer eligib le based on patient 's age to complete this topic MCV4 Aged Out No longer eligib le based on patient 's age to complete this topic Insurance Payer Benefit Plan Subscriber ID Effective Phone Address Typ e / Group Dates [employer] MEDICARE [id number] 2021-Pres [phone] [address] Medicare ADVANTAGE ent [id number] [place] [address] Cinthia Wagner Personal/Family Self 1945 [address] (Home) [address] [place] [address] Care Teams Heavy Coil Winder Relationship Specialty Start Date End Date Alex Orozco MD PCP - General Family Practice 11/23/19 [address] [place] [address]
--- OUTSIDE RECORDS SUMMARY | 2022-02-09 21:14 | XMS_ITS | Encounter Summary ---
:1945 [facility] Address [address] [place] [address] Care Team Providers Name Role Phone Alex Orozco MD Primary Care Provider Reason for Visit Reason Comments BOTOX INJECTION Encounter Details Date Type Department Care Team Description 05/05/2021 Procedure Visit Axel Santana, [place] [address] [place] [address] [place], [place] [phone] [address] Social History Tobacco Use Types Packs/Day Years Used Date Smoking Tobacco: Never Smokeless Tobacco: Never Alcohol Use Standard Drinks/Week Comments Not Currently 0 (1 standard drink = 0.6 oz pure alcoho l) Sex Assigned at Date Recorded Female 10/30/2020 7:58 AM CDT documented as of this encounter Last Filed Vital Signs Vital Sign Reading Time Taken Comments Blood Pressure 136/58 05/05/2021 1:00 PM SAMPLE PREPARATION SUPERVISOR Pulse 65 05/05/2021 1:00 PM SAMPLE PREPARATION SUPERVISOR Temperature - - Respiratory Rate - - Oxygen Saturation - - Inhaled Oxygen Concentration - - Weight - - Height - - Body Mass Index - - documented in this encounter Patient Instructions Patient InstructionsAxel Benedict, DO - 05/05/2021 1:00 PM CST Patient returns to clinic for follow-up. 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 Prior round of Botox injection provided some relief. She has not noted significant benefit from tizanidine recently. 1. Discontinue tizanidine during the day. She can take it as needed at night . As an alternative I ordered dantrolene. Start with 25 milligrams in the morning x3 days then increase to 25 milligrams 2 times per day, then increase to 25 milligrams 3 times per day. This can be increased further after ourfollow-up visit. 2. Discussed risks benefits alternatives of Botox injections, patient elected to proceed, performed in clinic today. We did increase the dilution of the medication hopefully provide additional benefit. 3. Continue stretching of the upper and lower extremity. Continue use of left brace. 4. Follow-up in 6 weeks by video. Botulinum Toxin Information Sheet for PM&R Patients General Information. 1. Botulinum toxin is a medication that is injected into the muscle. The goal of the injection is todecrease spasm, improve positioning, and decrease pain. It may be administered to multiple muscles, depending on your condition. 2. Botulinum Toxin is made by a number of pharmaceutical companies. The 2 main forms that we use at [facility] are Xeomin and Botox. They work very similarly, so the medication used may depend on your insurance coverage or your Doctor's preference. 3. Botulinum toxin injections are very helpful, but the medication is high cost. For that reason, wealways check with your insurance company to see whether a prior authorization is needed. This process can take a few weeks. 4. Botulinum toxin can only be administered every 90 days. If done prior to that time, your insurance company may not cover the treatment. Please make sure your appointment is AT LEAST 90 days from your previous treatment. 5. If you do require a prior authorization, once approved that authorization is typically good for one year. If your treatment plan extends beyond one year, you will need a new prior authorization at that time. 6. If your insurance changes, please notify the clinic prior to your appointment. What to expect on the day of your Botulinum Procedure 1. Your doctor will go over the treatment plan with you. 2. You will have the injections in clinic. Your doctor may use an EMG machine to localize the muscles that are to be injected. 3. After your injection, it is recommended that you avoid deep heat (heating pad, hot tub) for 24 hours. This is to prevent any spread of the Botulinum toxin to other muscles. 4. You should not have any deep tissue massage for at least one week after the injection. 5. You may otherwise resume normal activities. What to expect after the procedure, days to weeks. 1. Botulinum toxin does not take effect right away. You may actually feel a little stiffness or discomfort from the injection for the first few days. This will go away. 2. Over a period of 7 to 14 days, you will have gradual loosening and relaxation of the muscles thatwere treated. This may manifest as better range of motion, less pain, or improved positioning. 3. Very occasionally, patients may experience weakness that interferes with function. If you have this symptom, please call the clinic and let us know. [phone]. This symptom is not reversible, butwe can help advise on how to manage the weakness. This weakness will be temporary. 4. Botulinum toxin lasts about 90 days (sometimes longer). The peak effect is usually at 6 weeks post injection. You will follow up in clinic at that time to plan for the next treatment. 5. Patients who get benefit will likely need repeat treatment at some point after 90 days in order to sustain the benefit. LE PREPARATION SUPERVISOR documented in this encounter Progress Notes Axel Benedict DO - 05/05/2021 1:00 PM CST Physical Medicine and Rehabilitation Botox Injections Procedure Reason for referral Left-sided spastic hemiplegia. Subjective Cinthia Wagner presents to clinic for management of left-sided spastic hemiplegia. Tizanidine continues to not provide adequate benefit. She does take it occasionally at night to helpwith sleep. She notes that she continues to have excessive muscle tightness in the left upper and left lower extremity. She also has significant muscle spasm in the left foot. Previously diagnosed as focal dystonia. She continues to experience significant challenges with her anxiety and activity is very limited by her symptoms. Denies recent illness, fevers, chills. Adverse drug reactions:Acyclovir, Adhesive, and Omnicef [cefdinir] Medications: Current Outpatient Medications Medication Sig Dispense Refill ??? acetaminophen (TYLENOL) 500 MG tablet Take 1,000 mg by mouth three times a day. Maximum acetaminophen dose is 4000 mg in 24 hours ??? clonazePAM (KLONOPIN) 0.5 MG tablet Take 0.5 mg by mouth three times a day. ??? dantrolene (DANTRIUM) 25 MG capsule Take 1 Capsule (25 mg) by mouth three times a day. Start with 1 capsule in the morning x3 days, increase to 1 capsule 2 times per day x3 days then increase to 1 capsule 3 times per day. 90 Capsule 1 ??? DULoxetine (CYMBALTA) 60 MG capsule Take 1 Capsule by mouth daily. 90 Capsule 1 ??? fluticasone propionate (FLONASE) 50 MCG/ACT nasal solution 1 [place] by Nasal route daily. ??? hydrOXYzine HCl (ATARAX) 25 MG tablet Take 1 Tablet by mouth every 8 hours as needed for Anxietyor Pain. 30 Tablet 0 ??? lansoprazole (PREVACID) 30 MG capsule Take 30 mg by mouth daily. ??? levothyroxine (SYNTHROID) 25 MCG tablet Take 25 mcg by mouth daily. ??? melatonin 3 MG tablet Take 1 Tablet by mouth daily at bedtime. 90 Tablet 3 ??? metoprolol tartrate (LOPRESSOR) 50 MG tablet Take 50 mg by mouth two times a day. ??? multivitamin (THERAGRAN) tablet Take 1 Tablet by mouth daily. ??? OnabotulinumtoxinA (BOTOX IJ) 300 Units. 200 units: [id number]; exp 07/19 100 units: [id number]; exp02/17 ??? polyethylene glycol (MIRALAX) 17 g packet Take by mouth daily as needed. ??? ramipril (ALTACE) 10 MG capsule Take 10 mg by mouth two times a day. ??? sertraline (ZOLOFT) 50 MG tablet Take 50 mg by mouth daily. ??? tiZANidine (ZANAFLEX) 2 MG tablet Take 1 Tablet by mouth once as needed (Once daily as needed, to be taken in addition to other 2 mg tablets TID). 30 Tablet 11 Current Facility-Administered Medications Medication Dose Route Frequency Provider Last Rate Last Admin ??? botulinum toxin type A (BOTOX) injection 400 Units 400 Units Intramuscular Once Axel Benedict, DO Objective Vital signs Blood pressure 136/58, pulse 65. Gen. Appearance: Mildly anxious, well groomed, well-appearing individual. Spasticity (Modified Ayala Scale) Muscle Left Right Shoulder adduction 2 Elbow flexion Elbow extension 1+ Wrist flexion 2 Finger flexion 4 Hip adduction Knee flexion 1 Plantar flexion 3 Toe flexion 2 Procedure Patient or guardian understands the risks and benefits of Botox injections and consents to treatment. The following Botox injections were performed today: Total units of Botox:400 u diluted in 9 mL of preservative-free normal saline Lot: [id number] Exp 05/25/2023 EMG guidance was used Muscles injected: Muscles Injected # Units Dillution # of injection sites EMG Activity Left: Pectoralis major 50 2:1 2 2+ Flexor digitorum superficialis 50 1:1 1 2+ Flexor digitorum profundus 50 2:1 1 2+ 2nd lumbrical, 3rd lumbrical, 4th lumbrical 50 1:1 3 2+ Medial gastrocnemius 40 4:1 2 2+ Soleus 40 4:1 1 3+ Flexor digitorum longus 40 2:1 1 2+ Flexor hallucis longus 40 4:1/2:1 1 2+ Flexor digitorum brevis 20 2:1 1 1+ Right colon: Flexor digitorum brevis 20 2:1 1 2+ Treatment toleration: Treatment was tolerated well. No complications were noted. Assessment Successful Botox injections for left sided spastic hemiplegia and right foot focal dystonia Plan: Patient returns to clinic for follow-up. 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 Prior round of Botox injection provided some relief. She has not noted significant benefit from tizanidine recently. 1. Discontinue tizanidine during the day. She can take it as needed at night . As an alternative I ordered dantrolene. Start with 25 milligrams in the morning x3 days then increase to 25 milligrams 2 times per day, then increase to 25 milligrams 3 times per day. This can be increased further after ourfollow-up visit. 2. Discussed risks benefits alternatives of Botox injections, patient elected to proceed, performed in clinic today. We did increase the dilution of the medication hopefully provide additional benefit. 3. Continue stretching of the upper and lower extremity. Continue use of left hand brace. 4. Follow-up in 6 weeks by video. I spent a total of 20 minutes with the patient [id number] as well as reviewing the patient???s medical chart on the day of this encounter. This includes reviewing available and pertinent imaging, labs, and notes as well as time spent in documentation. Time was also spent counseling the patient on recommendations and options of treatment, which could include lifestyle modification, healthy weight status, physical exercise, modalities, medications, injections, and referrals to other specialties. Multiple questions were also answered. Please see above discussion. If applicable, time did not include performing procedures during this encounter. 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
--- OUTSIDE RECORDS SUMMARY | 2022-02-09 21:14 | XMS_ITS | Encounter Summary ---
:1945 Author Organization [facility] Address [address] [facility] [place] [address] Care Team Providers Name Role Phone No Ref-Primary, Physician Primary Care Provider [phone] Reason for Visit Reason Onset Date Comments Outpatient 08/18/2021 Encounter Details Date Type Department Care Team Description 08/18/2021 Telephone [facility] Zbigniew Mejia [facility] Outpatient Health & Addiction [place] [address] [address] [id number] [place], [place] [phone] [facility] [address] [place], [place] [address] (Wo rk) Social History Tobacco Use Types Packs/Day Years Used Date Smoking Tobacco: Never Assessed Sex Assigned at Date Recorded Not on file documented as of this encounter Miscellaneous Notes Telephone Encounter - Beena Mejia LP[facility] - 08/18/2021 10:13 AM CDT Haul Driver contacted patient and left a voicemail explaining that [facility]'s 55+ Program is notcovered by her insurance. Haul Driver explained that her insurance may cover some IOP's, however [facility] does not have a contract with them and therefore our specific services are not covered. Haul Driver explained that she would have to sign a financial waiver and be responsible for the full amount of the program if she wants to attend. Haul Driver explained that LINDEN Lugo had sent a Admazelyt message with other resources and to contact her with any follow-up questions. Haul Driver provided contact information: [phone] if patient has any further clarifying questions regarding the insurance coverage piece. JC Carrasco on 08/18/2021 at 10:16 AM documented in this encounter Plan of Treatment Not on filedocumented as of this encounter Visit Diagnoses Not on filedocumented in this encounter Additional Health Concerns Assessment Noted Time PHQ-9 Depression Total Score: 18 08/17/2021 2:29 PM CD T documented as of this encounter Care Teams Neurology Tech Relationship Specialty Start Date End Date No Ref-Primary, Physician PCP - General 08/11/21 documented as of this encounter
--- OUTSIDE RECORDS SUMMARY | 2022-02-09 21:15 | XMS_ITS | Encounter Summary ---
:1945 Author [facility] Address [address] [place] [address] Care Team Providers Name Role Phone Alex Orozco MD Primary Care Provider Reason for Visit Reason Comments Clarification Of Medication Orders Encounter Details Date Type Department Care Team Description 01/07/2021 Telephone [facility] [address] Axel Benedict, Bud ification Of Rehabilitative Medic ine DO Medication Orders [address] [address] [place] [address] [phone] Social History Tobacco Use Types Packs/Day Years Used Date Smoking Tobacco: Never Smokeless Tobacco: Never Alcohol Use Standard Drinks/Week Comments Not Currently 0 (1 standard drink = 0.6 oz pure alcoho l) Sex Assigned at Date Recorded Female 10/30/2020 7:58 AM CDT documented as of this encounter Nursing Notes Rita Hart RN - 01/08/2021 11:36 AM CDT I talked to patient this morning. Axel Benedict DO - 01/07/2021 4:11 PM CDT I not want to discontinue the medication as this would be a complicated process and needs to be doneby the patient's psychiatrist. I did forward today's note to her psychiatrist where I documented thepatient is concerned about being sedated. Getting off of these medications can be quite complicated so it is not something that can be simply discontinued. She would need to have a visit with her psychi atrist to discuss this as it would be a slow taper over a period of time and they would also need todetermine alternative medications to help manage her symptoms. Perlita Stuart, RN - 01/07/2021 11:05 AM CDT Pt called in stating that Dr. Benedict needs to call her Psychiatrist Dr. Benitez and figure out what to do with her clonazepam. Pt stated that the nurse at her living facility informed Cinthia that Dr. Benedictwanted this discontinued. I explained to Cinthia that from the notes I see he didn't mention discontinuing it, only that it caused her drowsiness. Pt insisted that we call Dr. Benitez to see what she thinks needs to be done. I explained to Cinthia that it would be best to first check with Dr. Benedict and see if he would like this discontinued. documented in this encounter Plan of Treatment Not on filedocumented as of this encounter Visit Diagnoses Not on filedocumented in this encounter Care Teams Remelt Operator Relationship Specialty Start Date End Date Alex Orozco MD PCP - General Family Practice 11/23/19 [facility] [place] [address] [place] [address] documented as of this encounter
--- OUTSIDE RECORDS SUMMARY | 2022-02-09 21:15 | XMS_ITS | Encounter Summary ---
:1945 Author Organization [facility] Address [address] [place] [address] Care Team Providers Name Role Phone Alex Orozco MD Primary Care Provider Reason for Referral Therapies (Routine) - Closed Specialty Diagnoses / Procedures Referred By Contact Refer red To Contact Diagnoses Neuropathic pain syndrome (non-herpetic) Spastic hemiplegia affecting nondominant side (HRC) Anxiety and depression (HRC) [place] [address] [place] [address] Referral ID Status Reason Start Date Expiration Date Visits Requ ested Visits Authorized [id number] Closed 01/07/2021 01/07/2022 1 111 Scheduling Instructions Your provider has recommended an appoint ment with [facility]. You may call [phone] to schedule yo ur appointment. We suggest you call your health insurance company about your cove rage and benefits for this appointment. Reason for Visit Reason Comments Follow-up Encounter Details Date Type Department Care Team Description 01/07/2021 Telemedicine [facility] [address] Neur opathic pain syndrome (non-herpetic) (Primary Dx); Rehabilitative Medic ine DO Spastic hemiplegia affecting nondominant side (HRC); [address] [address] [address] Anxiety and depression; [place], [place] Gait instability [id number] Social History Tobacco Use Types Packs/Day Years Used Date Smoking Tobacco: Never Smokeless Tobacco: Never Alcohol Use Standard Drinks/Week Comments Not Currently 0 (1 standard drink = 0.6 oz pure alcoho l) Sex Assigned at Date Recorded Female 10/30/2020 7:58 AM CDT documented as of this encounter Patient Instructions Patient InstructionsAxel Benedict DO - 01/07/2021 9:00 AM CDT Follow-up visit completed by video. Patient continues to experience significant tightness in the left arm, left hand and left leg. The nerve pain also continues to be significant. She has been taking tizanidine but benefit at this point is unclear. She does feel that her clonazepam from her psychiatrist is causing significant drowsiness. 1. The hydroxyzine provided by my colleague was not covered by her insurance. We will hold on this treatment at this time. I have placed a referral to the Pain Clinic so that they could consider other options for managing her neuropathic pain. 2. Continue tizanidine 2 mg 3 times per day. 3. Placed referral to the Lifestyle renewal program for Education on pain, relaxation exercises and activities to help manage her pain and anxiety. 4. Continue with Botox injections as scheduled. This may just be the left upper and left lower extremity. I will discuss the case with Dr. Ibarra. documented in this encounter Progress Notes Axel Benedict DO - 01/07/2021 9:00 AM CDT PHYSICAL MEDICINE AND REHABILITATION Follow up Chief Complaint: Chief Complaint Patient presents with ??? Follow-up History of Present Illness: Cintiha Wagner is a 75 y.o. female who is interviewed as a video visit regarding left-sided spastic hemiplegia and left-sided pain.. 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 She began to experience spasticity on the left side multipleyears. Initially she noted curling of the toes and fingers. Over time the symptoms have progressed. She moved to [place] in 2016. At that time symptoms were more signigicant. [...] lives in a long-term care facility. Follow-up via video. Patient has been having significant challenges with pain and anxiety. She wonders if her anxiety is making her symptoms worse. She did have a follow-up with her psychiatrist yesterday. They did not make medication changes. She notes that she is experiencing significant drowsiness when taking her clonazepam. The tizanidine seems to be well tolerated but isn't providing clear benefit in terms of reducing spasticity and certainly is not helping with her pain. Pain today 9-01/04, constant dull/aching of staying the same. Aggravated by lying down. Alleviated by resting, icing, changing positions. She does note tingling in the left foot. Denies bowel or bladder incontinence. Mental health: Dr Benitez is her psychiatrist [...] Prediabetes ??? Stroke (HRC) R frontal hemorrhage, 2010 ??? Thyroid disease (HRC) Medications: The patient has a current medication list which includes the following prescription(s):acetaminophen, clonazepam, duloxetine, fluticasone propionate, hydroxyzine hcl, lansoprazole, levothyroxine, melatonin, metoprolol tartrate, multivitamin, onabotulinumtoxina, polyethylene glycol, ramipril, sertraline, and tizanidine. Allergies: Acyclovir, Adhesive, and Omnicef [cefdinir] Social History: Single Review of Systems: As per history of present illness. All other systems are negative. Physical Examination: General/Constitutional: Well-developed, well-nourished individual in no acute distress. Mental Status: Appropriate mood, grossly oriented with coherent speech and thought processing. Data: Assessment: ICD-10-CM 1. Neuropathic pain syndrome (non-herpetic) M79.2 Occupational Therapy 2. Spastic hemiplegia affecting nondominant side (HRC) G81.10 Occupational Therapy 3. Anxiety and depression ([facility]) F41.9 Occupational Therapy F32.A 4. Gait instability R26.81 Recommendations: Follow-up visit completed by video. Patient continues to experience significant tightness in the left arm, left hand and left leg. The nerve pain also continues to be significant. She has been taking tizanidine but benefit at this point is unclear. She does feel that her clonazepam from her psychiatrist is causing significant drowsiness. 1. The hydroxyzine provided by my colleague was not covered by her insurance. We will hold on this treatment at this time. I have placed a referral to the Pain Clinic so that they could consider other options for managing her neuropathic pain. 2. Continue tizanidine 2 mg 3 times per day. 3. Placed referral to the Lifestyle renewal program for Education on pain, relaxation exercises and activities to help manage her pain and anxiety. 4. Continue with Botox injections as scheduled. This may just be the left upper and left lower extremity. I will discuss the case with Dr. Ibarra. We discussed the anatomy of the spine [...] Medicine and Rehabilitation documented in this encounter Nursing Notes Daryl Gomes CMA - 01/07/2021 9:00 AM CDT Before we can start this telephone/video visit, the patient verbally consents to the followin. Patient name and date of : Confirmed 2. Demonstrates an understanding of the limitations with a telephone/virtual visit: Yes 3. Physical location of patient in case of emergency: Home 4. The telehealth visit will be billed to their insurance: [employer] 5. As a reminder, the [employer] number that your provider calls on is random and not monitored. If you have questions, do not call back the [employer] number but instead please call the nurse line at [phone] option #2 documented in this encounter Plan of Treatment Scheduled Referrals Name Type Priority Associated Diagnoses [facility] Referral Routine Neuropathic pain syn drome Ordered: 01/07/2021 (non-herpetic) Spastic hemiplegia affecting nondominant side (HRC) Anxiety and depression documented as of this encounter Visit Diagnoses Diagnosis Neuropathic pain syndrome (non-herpetic) - Primary Neuralgia, neuritis, and radiculitis, un specified Spastic hemiplegia affecting nondominant side (HRC) Spastic hemiplegia affecting nondominant side Anxiety and depression (HRC) Dysthymic disorder Gait instability Abnormality of gait documented in this encounter Care Teams Machine Presser Relationship Specialty Start Date End Date Alex Orozco MD PCP - General Family Practice 11/23/19 [address] [place] [address] documented as of this encounter
--- OUTSIDE RECORDS SUMMARY | 2022-02-09 21:15 | XMS_ITS | Encounter Summary ---
:1945 Author Organization [facility] Address [address] [place] [address] Care Team Providers Name Role Phone Alex Orozco MD Primary Care Provider Reason for Visit Reason Comments Medication Side Effects Encounter Details Date Type Department Care Team Description 12/13/2020 Nurse Triage Careline Unknown, Medication Side Effects [address] Physician [place], [place] [address] [phone] [place] [address] Social History Tobacco Use Types Packs/Day Years Used Date Smoking Tobacco: Never Smokeless Tobacco: Never Alcohol Use Standard Drinks/Week Comments Not Currently 0 (1 standard drink = 0.6 oz pure alcoho l) Sex Assigned at Date Recorded Female 10/30/2020 7:58 AM CDT documented as of this encounter Progress Notes Endy Benedict DO - 12/15/2020 8:12 AM CDT Addended by: ENDY BENEDICT on: 12/15/2020 08:12 AM Modules accepted: Orders documented in this encounter Nursing Notes Perlita Stuart, RN - 12/15/2020 8:52 AM CDT Pt was updated and scheduled for a video visit with Dr. Benedict. Pt's meds are managed by her SAILAJA. I called and spoke with her pt's nurse Lynne, she does need a discontinuation order that is signed by Dr. Benedict. This can be faxed to her at [phone]. I have pended this. Lynne also mentioned that some of her meds get changed by frequently as she had a lot of different provider's that manage her care. She will fax over an updated Med list to the clinic tomorrow priorto her video appt. Endy Benedict DO - 12/15/2020 8:07 AM CDT I would recommend discontinuing the medication. I will discontinue the medication in the chart. I know she also seem to have side effects with tizanidine. Would like to schedule a follow-up video visit so we could discuss consideration of dantrolene as a new anti spasticity medication. Charlette Castle RN - 12/13/2020 10:39 PM CDT Patient/aged or disabled carer request: Input needed Medication Specific Request: side effect of baclofen Clinician route to Flag for care team/Care team pool please call pt Verified patient identity : Yes Situation/Background (brief explanation of current symptoms/situation): Pt started baclofen yesterday. Tonight pt felt dizzy and drowsy,, pt has also felt rigid for a few days, this symptom was presentbefore starting baclofen and there is no change Reviewed with patient pertinent medical history(as it related to the call): Yes Reviewed with patient pertinent medications (as they relate to call): Yes Reviewed with patient pertinent allergies (as they relate to call.) Reason for Disposition ??? [1] Caller has NON-URGENT medicine question about med that PCP prescribed AND [2] triager unableto answer question Answer Assessment - Initial Assessment Questions 1. NAME of MEDICATION: What medicine are you calling about? baclofen 2. QUESTION: What is your question? (e.g., medication refill, side effect) Pt feels dizzy and drowsy after taking 3. PRESCRIBING HCP: Who prescribed it? Reason: if prescribed by specialist, call should be referred to that group. Jak Protocols used: MEDICATION QUESTION [id number] Pt states she has been taking medication since yesterday, tonight after taking pt feel drowsy and mild dizziness. Pt states she was at a wedding today and is tired. Pt would like Dr Benedict to evaluate and possibly change medication. Advised pt I would route to Dr Benedict for follow up on Tuesday. Pt also states she feels rigid but this has been going on prior to starting medication Pt has no further questions The Careline is open 18/10. Call back with any questions or concerns. Sherron Garcia - 12/13/2020 9:55 PM CDT Verified patient identity using three identifiers: Yes Caller's relationship to patient: Self At which care system or clinic is the patient normally seen? [facility] Select Member: No Medication Questions/New Med Request/ Side Effects What medication are you calling about (name and/or type)? Baclofen What is your question/concern? Pt states that after taking Baclofen medication today, she's experiencing drowsiness/dizziness and pt states she feels rigid. Pt denies any pain and states no other s/s. Plan: The current callback time to speak with a nurse is 1hr. If your symptoms change or worsen, or if you have not received a call back in the stated timeframe, please call us back documented in this encounter Plan of Treatment Not on filedocumented as of this encounter Visit Diagnoses Not on filedocumented in this encounter Care Teams First Assistant Relationship Specialty Start Date End Date Alex Orozco MD PCP - General Family Practice 11/23/19 [address] [place] [address] documented as of this encounter
--- OUTSIDE RECORDS SUMMARY | 2022-02-09 21:15 | XMS_ITS | Encounter Summary ---
:1945 Author Organization [facility] Address [address] [place] [address] Care Team Providers Name Role Phone Alex Orozco MD Primary Care Provider Reason for Visit Reason Comments QUESTIONS, GENERAL Encounter Details Date Type Department Care Team Description 01/13/2021 Telephone [facility] [address] QUES TIONS, GENERAL Rehabilitative Medic [facility] [address] [place] [place] [address] [place], [place] [phone] (Wo rk) Social History Tobacco Use Types Packs/Day Years Used Date Smoking Tobacco: Never Smokeless Tobacco: Never Alcohol Use Standard Drinks/Week Comments Not Currently 0 (1 standard drink = 0.6 oz pure alcoho l) Sex Assigned at Date Recorded Female 10/30/2020 7:58 AM CDT documented as of this encounter Nursing Notes Perlita Stuart RN - 01/13/2021 4:17 PM CDT Pt was updated, no further concerns. Axel Benedict DO - 01/13/2021 3:51 PM CDT Anxiety very commonly increases pain. Anxiety can put the brain in a state of heightened awareness/sensitivity. This can make signals coming in from the body that normally would not be viewed as pain seem significantly painful. I find that anxiety very commonly makes pain worse and can make pain challenging to manage. I find it very important to both treat pain as well as treat the anxiety that is underlying. Radha Bearden RN - 01/13/2021 9:17 AM CDT Patient would like to know if anxiety can cause nerve pain. Discussed with her that anxiety can heighten existing pain. She would like to know Dr. Benedict's thoughts on this. documented in this encounter Plan of Treatment Not on filedocumented as of this encounter Visit Diagnoses Not on filedocumented in this encounter Care Teams Bridge Ironworker Relationship Specialty Start Date End Date Alex Orozco MD PCP - General Family Practice 11/23/19 [address] [place] [address] documented as of this encounter
--- OUTSIDE RECORDS SUMMARY | 2022-02-09 21:15 | XMS_ITS | Encounter Summary ---
:1945 Author Organization [facility] Address [address] [place] [address] Care Team Providers Name Role Phone Alex Orozco MD Primary Care Provider Reason for Visit Reason Comments Medication Request Encounter Details Date Type Department Care Team Description 02/02/[address] [facility] [address], Medi cation Request Rehabilitative Medic ine DO [address] [address] [place] [address] [place], [place] [phone] (Wo rk) Social History Tobacco Use Types Packs/Day Years Used Date Smoking Tobacco: Never Smokeless Tobacco: Never Alcohol Use Standard Drinks/Week Comments Not Currently 0 (1 standard drink = 0.6 oz pure alcoho l) Sex Assigned at Date Recorded Female 10/30/2020 7:58 AM CDT documented as of this encounter Nursing Notes Radha Bearden, RN - 02/03/2021 9:20 AM CST Lynne requested to script be faxed to her at [phone] and also faxed to the pharmacy again as they claim they did not receive it. Faxed it to [facility] at [phone]. No further concerns noted. DULoxetine (CYMBALTA) 60 MG capsule 90 Capsule 1 02/02/2021 Sig - Route: Take 1 Capsule by mouth daily. - Oral Sent to pharmacy as: DULoxetine HCl 60 MG Oral Capsule Delayed Release Particles (CYMBALTA) Class: E-Prescribing Date/Time Signed: 02/02/2021 16:07 E-Prescribing Status: Receipt confirmed by pharmacy (02/02/2021 ??4:08 PM MASONRY INSPECTOR) NRY INSPECTOR Claire Schofield MA - 02/02/2021 4:21 PM CST Notified staff at [facility] of increase dosing. Axel Raymond DO - 02/02/2021 4:06 PM CST Duloxetine dose increased to 60 mg. Nursing staff a new prescription has been signed. Please contacther staff to let them know about the dose change so can be increased for tomorrow. NRY INSPECTOR Radha Bearden RN - 02/02/2021 3:16 PM CST Patient called back and is hysterical in tears. After patient calmed down nurse updated her and she verbalized understanding. Noted that patient cancelled her pain consult on 02/06/21. She states that that was because she thought it could not be changed to video. Informed her it can be. Patient becametearful again. Conference called pain clinic scheduling who set her up for video consult on 03/06/21at 1pm with Caren Beltran CNP. Agreed to relay to Dr. Benedict that patient would like to increase her Cymbalta dosing. She understands she may not get a call back until tomorrow. Rita Tam RN - 02/02/2021 2:55 PM CST No answer and voicemail hangs up half way through the message. Axel aRymond DO - 02/02/2021 2:48 PM CST I do not know that have other medication options to recommend. She is already on Cymbalta which we typically use for nerve pain. I do not prescribe opioids and patients were already taking benzodiazepines. Gabapentin and Lyrica are ones that I commonly use but again she has side effects to these. It may be reasonable to consider increasing her Cymbalta to see if this provides more significant benefitbut this would take time to provide relief. I do not see that she has an appointment scheduled with the Pain Clinic. I stressed this on a coupleother visits that this would be useful to help with managing her symptoms. Can we help her in getting scheduled for this. She would like to do it as a virtual visit. NRY INSPECTOR Radha Bearden RN - 02/02/2021 2:03 PM CST Patient had botox injection on 01/27/21 in her left foot, hand and shoulder. She reports her nerve pain flared up yesterday and has continued into today. Rates pain 10/10 in left leg and left arm. Lyrica caused blurred vision and drowiness. Has not tried gabapentin but she does want to take it if it has the same side effects as Lyrica. Patient reports she has very bad anxiety and is feeling very anxious right now but she is working with a Psychologist on this. Is taking clonazepam TID but it doesn't help much. She requests something else for the pain. Please advise. Patient is currently taking: Duloxetine 40 mg daily Tizanidine 2 mg 3 times per day NRY INSPECTOR documented in this encounter Plan of Treatment Not on filedocumented as of this encounter Visit Diagnoses Not on filedocumented in this encounter Care Teams Control Tower Radio Operator Relationship Specialty Start Date End Date Alex Orozco MD PCP - General Family Practice 11/23/19 [address] [place] [address] documented as of this encounter
--- OUTSIDE RECORDS SUMMARY | 2022-02-09 21:15 | XMS_ITS | Encounter Summary ---
:1945 Author Organization [facility] Address [address] [place] [address] Care Team Providers Name Role Phone Alex Orozco MD Primary Care Provider Reason for Visit Reason Comments Questions Encounter Details Date Type Department Care Team Description 12/08/2020 Telephone [facility] [facility] Rozina Beckett, RN Questions [address] [place] [place] [address] Social History Tobacco Use Types Packs/Day Years Used Date Smoking Tobacco: Never Smokeless Tobacco: Never Alcohol Use Standard Drinks/Week Comments Not Currently 0 (1 standard drink = 0.6 oz pure alcoho l) Sex Assigned at Date Recorded Female 10/30/2020 7:58 AM CDT documented as of this encounter Nursing Notes Rozina Beckett, RN - 12/08/2020 2:36 PM CDT Cinthia left a message at [facility] that she just had a video visit with Dr. Benedict and she forgot to ask him if he gives her Botox is it through [place] because she has trouble with the billing there. Call back to Cinthia and she states she already called and found out Dr. Pacheco is going to do the botox injection, not [facility] and he was supposed to get in touch with Dr. Ibarra. I told her she is scheduled with Dr. Ibarra in January for Botox so if she is going to Dr. Pacheco, she should notify [facility] if she needs to cancel. documented in this encounter Plan of Treatment Not on filedocumented as of this encounter Visit Diagnoses Not on filedocumented in this encounter Care Teams Supervisor Beam Department Relationship Specialty Start Date End Date Alex Orozco MD PCP - General Family Practice 11/23/19 [address] [place] [address] documented as of this encounter
--- OUTSIDE RECORDS SUMMARY | 2022-02-09 21:15 | XMS_ITS | Encounter Summary ---
:1945 Author Organization [facility] Address [address] [place] [address] Care Team Providers Name Role Phone Alex Orozco MD Primary Care Provider Reason for Visit Reason Comments Follow-up post injection Encounter Details Date Type Department Care Team Description 03/06/2021 Telemedicine [facility] [address] Sp[address] tic hemiplegia affecting nondominant side (HRC) (Primary Dx); Rehabilitative Medic ine DO Neuropathic pain syndrome (non-herpetic) ; [address] [address] [place] [address] [id number] Social History Tobacco Use Types Packs/Day Years Used Date Smoking Tobacco: Never Smokeless Tobacco: Never Alcohol Use Standard Drinks/Week Comments Not Currently 0 (1 standard drink = 0.6 oz pure alcoho l) Sex Assigned at Date Recorded Female 10/30/2020 7:58 AM CDT documented as of this encounter Patient Instructions Patient InstructionsEndy Benedict DO - 03/06/2021 2:40 PM CST Follow-up visit completed via phone as patient was unable to join video visit. Patient notes that she has had some benefit from the Botox in her left hand but continues to have significant toe curling in the left foot, pain in the right foot and having significant tightness with her left arm fog against her body. She is having severe nerve pain. She has found that the tizanidine seems to help some. She did recently complete her visit with the Pain Clinic. She had been recommended to do DBT but unfortunately the outside clinic that she sought care was very inappropriate and recommended reading the Bible to help her pain. She continues to have severe pain in the left upper extremity. 1. We will have our staff reach out to the patient to schedule a repeat round of Botox injections. This will be 3 months from the previous injections. We will plan to increase the dose potentially up to 600 units. 2. We will continue tizanidine. I have signed a new order for the patient to take 1-2 tablets up to 3 times per day. This additional flexibility should allow her to better control her symptoms. 3. Discussed that she will be in good hands with the Lifestyle renewal program. This can be done virtually. Had recommended this previously. I recommend that she schedule this as soon as possible. It will likely be more than 1 month before she can get in for this. 4. I will see the patient in 2 months for repeat injections. MANAGER documented in this encounter Progress Notes Endy Benedict DO - 03/06/2021 2:40 PM EMS MANAGER Addended by: ENDY BENEDICT on: 03/06/2021 03:13 PM Modules accepted: Level of Service MANAGER Nguyễn Tran CMA - 03/06/2021 2:40 PM CST Before we can start this telephone/video visit, the patient verbally consents to the followin. Patient name and date of : confirmed 2. Demonstrates an understanding of the limitations with a telephone/virtual visit: yes 3. Physical location of patient in case of emergency: home 4. The telehealth visit will be billed to their insurance: yes 5. As a reminder, the [employer] number that your provider calls on is random and not monitored. If you have questions, please call the nurse line at [phone] option #2 MANAGER Endy Benedict DO - 03/06/2021 2:40 PM CST PHYSICAL MEDICINE AND REHABILITATION Follow up Video visit transitioned to phone as video was not functioning Chief Complaint: Chief Complaint Patient presents with ??? Follow-up post injection History of Present Illness: Cinthia Wagner is a 75 y.o. 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 She began to experience spasticity on the left side multipleyears. Initially she noted curling of the toes and fingers. Over time the symptoms have progressed. She moved to [place] in 2017. At that time symptoms were [...] certainly is not helping with her pain. Patient notes that she continues to experience significant pain tightness in the left upper and lower extremities. She also notes that she is having significant tension in the right foot. She has not noted a great deal benefit from the Botox injections. Potentially some improvement in her left hand range of motion however she has not noted improvement in her shoulder motion or in the feet. She is quite distraught by her pain. She notes the nerve pain tends to be most significant at end of the day. Pain 9/10, constant, burning, staying the same. Denies clear aggravating or alleviating factors. Does note numbness and weakness on the left side of the body. Mental health: Dr Benitez is her psychiatrist [...] hemiplegia affecting nondominant side (HRC) G81.10 2. Neuropathic pain syndrome (non-herpetic) M79.2 3. Anxiety and depression (HR) F41.9 F32.A Recommendations: Follow-up visit completed via phone as patient was unable to join video visit. Patient notes that she has had some benefit from the Botox in her left hand but continues to have significant toe curling in the left foot, pain in the right foot and having significant tightness with her left arm fog against her body. She is having severe nerve pain. She has found that the tizanidine seems to help some. She did recently complete her visit with the Pain Clinic. She had been recommended to do DBT but unfortunately the outside clinic that she sought care was very inappropriate and recommended reading the Bible to help her pain. She continues to have severe pain in the left upper extremity. 1. We will have our staff reach out to the patient to schedule a repeat round of Botox injections. This will be 3 months from the previous injections. We will plan to increase the dose potentially up to 600 units. 2. We will continue tizanidine. I have signed a new order for the patient to take 1-2 tablets up to 3 times per day. This additional flexibility should allow her to better control her symptoms. 3. Discussed that she will be in good hands with the Lifestyle renewal program. This can be done virtually. Had recommended this previously. I recommend that she schedule this as soon as possible. It will likely be more than 1 month before she can get in for this. 4. I will see the patient in 2 months for repeat injections. Video visit transition to phone as patient was not able to connect to the video visit. I spent a total of 40 minutes with the patient [id number] as well as reviewing the patient???s medical [...] not include performing procedures during this encounter. We discussed the anatomy of the spine [...] be seen in clinic in the future. Endy Benedict DO Physical Medicine and Rehabilitation MANAGER documented in this encounter Plan of Treatment Not on filedocumented as of this encounter Visit Diagnoses Diagnosis Spastic hemiplegia affecting nondominant side (HRC) - Primary Spastic hemiplegia affecting nondominant side Neuropathic pain syndrome (non-herpetic) Neuralgia, neuritis, and radiculitis, un specified Anxiety and depression (HRC) Dysthymic disorder documented in this encounter Care Teams Tractor Crane Engineer Relationship Specialty Start Date End Date Alex Orozco MD PCP - General Family Practice 11/23/19 [address] [place] [address] documented as of this encounter
--- OUTSIDE RECORDS SUMMARY | 2022-02-09 21:15 | XMS_ITS | Encounter Summary ---
:1945 Author Organization [facility] Address [address] [place] [address] Care Team Providers Name Role Phone Alex Orozco MD Primary Care Provider Reason for Visit Reason Comments Spasms EMOTIONAL UPSET Encounter Details Date Type Department Care Team Description 01/08/2021 Nurse Triage Careline Axel Benedict, Spasms; EMOTIONAL [address] DO UPSET [place], [place] [phone] [place] [phone] [place] [address] (Wo rk) Social History Tobacco Use Types Packs/Day Years Used Date Smoking Tobacco: Never Smokeless Tobacco: Never Alcohol Use Standard Drinks/Week Comments Not Currently 0 (1 standard drink = 0.6 oz pure alcoho l) Sex Assigned at Date Recorded Female 10/30/2020 7:58 AM CDT documented as of this encounter Nursing Notes Rita Hart RN - 01/08/2021 10:54 AM CDT Updated patient. No further questions or concerns at this time. Axel Benedict DO - 01/08/2021 10:12 AM CDT Spasms are not uncommon when dealing with significant spasticity as she currently is. Also symptoms can sometimes get worse as the Botox injections begin to wear off before the next injections. Melania Mccurdy RN - 01/08/2021 8:00 AM CDT Patient/post acute care registered nurse request: Input needed ongoing symptoms Specific Request: Patient would like to know if spasms are normal following a stroke? Should patientbe seen by her PCP for evaluation? Clinician as patient is expecting a call back. Call transferred from careline programs assistant due to spasms Verified patient identity: Yes Situation/Background (brief explanation of current symptoms/situation): Patient calling and reports she had a stroke in September 2010. In the last year she has had a spasm in her left leg while sleeping. Patient reports her neurologist prescribed something for the spasms. Patient reports having anxiety attack right now. Patient heard to be crying. Patient reports her left side is rigid. Patient reports her left side is tight and rigid. She is able to move it. Patient lives in assisted living. Patient reports the rigidity is not new. Patient reports she has taken her medication for anxiety. Spasms are new but rigid muscles is chronic. Patient is wondering if the spasms are normal following a stroke. Patient called her aid in her assisted living and aid denies seeing any neurological symptoms. Patient than walked down from her third floor apartment to the nurses station. Patient put Lynne a nurse on the telephone and she confirms patient has no neurological symptoms. Patient is concerned that her spasms are related to her history of a stroke and can this be normal? Patient took her Tizanidine this morning along with her clonazepam. Reviewed with patient pertinent medical history (as it related to the call): Yes Reviewed with patient pertinent medications (as they relate to call): Yes Reviewed with patient pertinent allergies (as they relate to call): Yes Reason for Disposition ??? Symptoms interfere with work or school Protocols used: ANXIETY AND PANIC [id number] Plan: Advised she be seen in the next 24 hours. Patient had a video visit with Dr. Bella yesterday.She would like her question sent to him for review. Patient verbalized understanding and agreed withthe plan. Advised patient/caller to call back CareLine if there are further questions, concerns, or to be seenif symptoms change or worsen. The CareLine is available 18/10. Melania Schroeder RN Careline 8:33 AM 01/08/2021 Lennie Joseph - 01/08/2021 7:56 AM CDT Verified patient identity using three identifiers: Yes Caller's relationship to patient: Self Do you get your primary care at a HP or PN clinic: No/Other [facility] HP Select Member: No Medication Questions/New Med Request/ Side Effects What medication are you calling about (name and/or type)? Unknown What is your question/concern? Pt states she had some sort of spasm on her entire left side. She feels like she is having a panic attack. Hx of stroke in 2010 on left side. Plan: Caller transferred directly to CareLine nurse. documented in this encounter Plan of Treatment Not on filedocumented as of this encounter Visit Diagnoses Not on filedocumented in this encounter Care Teams Axle Turner Relationship Specialty Start Date End Date Alex Orozco MD PCP - General Family Practice 11/23/19 [facility] [place] [address] documented as of this encounter
--- OUTSIDE RECORDS SUMMARY | 2022-02-09 21:15 | XMS_ITS | Encounter Summary ---
:1945 Author Organization [employer] Address [address] [place] [address] Care Team Providers Name Role Phone Alex Orozco MD Primary Care Provider Reason for Visit Reason Comments Medication Questions Encounter Details Date Type Department Care Team Description 11/14/2020 Telephone [facility] La Nena Banda pharmacist assistant Questions [address] [place], [place] [address] Social History Tobacco Use Types Packs/Day Years Used Date Smoking Tobacco: Never Smokeless Tobacco: Never Alcohol Use Standard Drinks/Week Comments Not Currently 0 (1 standard drink = 0.6 oz pure alcoho l) Sex Assigned at Date Recorded Female 10/30/2020 7:58 AM CDT documented as of this encounter Nursing Notes La Nena Banda RN - 11/14/2020 4:23 PM CDT Called Cinthia and told her this information. She said PCP recommend she try taking it 4 hours before bedtime. She will try this and see what happens. 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 Acting out dreams. Not sure if that was the reason shefell out of bed. RBD is common in PD however her LORIN scan is now negative so I'm not sure if she actually has it. It is up to her if she wants to try stopping it or not. Mateo Ibarra MD La Nena Banda, RN - 11/14/2020 12:27 PM CDT Cinthia called and LM on nurse line stating they are considering stopping her melatonin because it is causing her to be tired in the mornings. She is afraid of stopping because she is worried about falling out of bed, which is why she is on the melatonin. Thoughts? documented in this encounter Plan of Treatment Not on filedocumented as of this encounter Visit Diagnoses Not on filedocumented in this encounter Care Teams Fish Warden Relationship Specialty Start Date End Date Alex Orozco MD PCP - General Family Practice 11/23/19 [address] [place] [address] documented as of this encounter
--- OUTSIDE RECORDS SUMMARY | 2022-02-09 21:15 | XMS_ITS | Encounter Summary ---
:1945 Author Organization [facility] Address [address] [place] [address] Care Team Providers Name Role Phone Alex Orozco MD Primary Care Provider Reason for Visit Reason Comments QUESTIONS, GENERAL Encounter Details Date Type Department Care Team Description 03/17/2021 Telephone [facility] [address] QUES TIONS, GENERAL Rehabilitative Medic ine DO [address] [place] [address] [place], [place] [phone] (Wo rk) Social History Tobacco Use Types Packs/Day Years Used Date Smoking Tobacco: Never Smokeless Tobacco: Never Alcohol Use Standard Drinks/Week Comments Not Currently 0 (1 standard drink = 0.6 oz pure alcoho l) Sex Assigned at Date Recorded Female 10/30/2020 7:58 AM CDT documented as of this encounter Nursing Notes Radha Bearden RN - 03/30/2021 10:04 AM CST Spoke with MONICA Lyman at [...] the pain clinic regarding her pain management. See 03/23/21 phone encounter. Closing this one. Y MOBILE EQUIPMENT REPAIRER Radha Bearden RN - 03/17/2021 3:28 PM CST Maricarmen called from Dr. Benitez's office at [facility] and reports that patient clonazepam was decreased to0.25mg TID and she was put on 25mg amitriptyline QHS. Maricarmen's reports patient has already called into clinic today multiple times since her appointment. Maricarmen will ask for clarification from Dr. Benitez if any other medications were discussed that Dr. Benedict could potentially assist in prescribing. [facility] Y MOBILE EQUIPMENT REPAIRER Perlita Stuart RN - 03/17/2021 2:50 PM CST Pt called in and was tearful. She stated that she had a video visit with Dr. Benitez(psychiatrist) todayand he recommended a medication but she could not give me the name of the medication. Pt was frustrated and ended the call. I called Dr. Benitez's office at [facility] and left a message to see which medication they were talking about. I do not see any notes in Care Everywhere from today. Y MOBILE EQUIPMENT REPAIRER documented in this encounter Plan of Treatment Not on filedocumented as of this encounter Visit Diagnoses Not on filedocumented in this encounter Care Teams Coal Shoveler Relationship Specialty Start Date End Date Alex Orozco MD PCP - General Family Practice 11/23/19 [address] [place] [address] documented as of this encounter
--- OUTSIDE RECORDS SUMMARY | 2022-02-09 21:15 | XMS_ITS | Encounter Summary ---
:1945 Author Organization [facility] Address [address] [place] [address] Care Team Providers Name Role Phone Alex Orozco MD Primary Care Provider Reason for Visit Reason Comments Medication Change Encounter Details Date Type Department Care Team Description 11/05/2020 Telephone [facility] [address] dication Change Neurology Ricardo Montague RN [address] [place], [place] [address] Social History Tobacco Use Types Packs/Day Years Used Date Smoking Tobacco: Never Smokeless Tobacco: Never Alcohol Use Standard Drinks/Week Comments Not Currently 0 (1 standard drink = 0.6 oz pure alcoho l) Sex Assigned at Date Recorded Female 10/30/2020 7:58 AM CDT documented as of this encounter Nursing Notes Ricardo Izaguirre RN - 11/05/2020 10:19 AM CDT [facility] calling re: cymbalta order and lyrica. She wanted our office to know that her psychiatrist had her up to 60 mg and decreased her to 30 mg. Pt currently taking 30 mg. Pharmacy needs new order to reflect increase to 40 mg for 1 week and then 60 mg daily. Scripts pended to physician to sign. documented in this encounter Plan of Treatment Not on filedocumented as of this encounter Visit Diagnoses Not on filedocumented in this encounter Care Teams Historic Interpreter Relationship Specialty Start Date End Date Alex Orozco MD PCP - General Family Practice 11/23/19 [address] [place] [address] documented as of this encounter
--- OUTSIDE RECORDS SUMMARY | 2022-02-09 21:15 | XMS_ITS | Encounter Summary ---
:1945 Author Organization [facility] Address [address] [place] [address] Care Team Providers Name Role Phone Alex Orozco MD Primary Care Provider Encounter Details Date Type Department Care Team Description 12/03/2020 Phone Visit [facility] Mateo Ibarra, Spasticity (Primary Dx); [address] [place] [phone] (Wo rk) Social History Tobacco Use Types Packs/Day Years Used Date Smoking Tobacco: Never Smokeless Tobacco: Never Alcohol Use Standard Drinks/Week Comments Not Currently 0 (1 standard drink = 0.6 oz pure alcoho l) Sex Assigned at Date Recorded Female 10/30/2020 7:58 AM CDT documented as of this encounter Patient Instructions Patient InstructionsElizabeth Guadarrama RN - 12/03/2020 8:20 AM CDT Please note the number that your provider called from is a non-working number for return calls. Please contact us using [employer] or by calling the [facility] nurse line at [phone]. To set up your next appointment, please call the [facility] scheduling line at [phone]. Two easy ways to stay connected with what is going on at [facility]: 1. If you have not already done so, we encourage you to sign up (for free) to be on our e-mailing list, so that you will receive information about upcoming classes, events, and activities hosted by [facility]! To sign up, simply send an email to [employer] - [email or web address] indicating that you would like to be included. 2. Follow us on Facebook to learn more about current news and upcoming events. Find us at [facility]! documented in this encounter Progress Notes Mateo Ibarra MD - 12/03/2020 8:20 AM CDT [facility] Phone Follow-up Note History of Present Illness: [...] curling in the feet as well as shuffling.??[place] to possibly have a parkinsonian disorder given symptoms however did not respond to up to 3 tabs TID of??carbidopa/levodopa??25/100??and a LORIN was negative, thus thisnow seems less likely.??Workup has also included MRI of brain and cervical spine without explanation.??She has also seen by Psychiatry and Psychology. She reports that the last botulinum toxin injections did help a little bit more with her hand and shoulder. Her left foot is still bothering her significantly, however. Her toes are curling and she is walking on the tips of the toes which is painful. She continues to note somnolence in the morning. She sleeps well. She tried stopping her melatonin but could not sleep. Assessment/Plan: 75-year-old female with post stroke left hemibody pain and spasticity. Seems that the change in botulinum toxin injections was helpful for the left arm/hand. However for next injections would focus more on the toe flexors. For her somnolence will try fully stopping the Lyrica. It may be that her pain increases with this, if it does she can restart it. We discussed that clonazepam can also contribute to somnolence but it is being used for anxiety. She is going to be seeing physiatry for second opinion. Would appreciate their thoughts. Total time spent in discussion with patient: 18 minutes Note dictated using voice recognition software. Mateo Ibarra MD documented in this encounter Plan of Treatment Not on filedocumented as of this encounter Visit Diagnoses Diagnosis Spasticity - Primary Abnormal involuntary movements Neuropathic pain Neuralgia, neuritis, and radiculitis, un specified documented in this encounter Care Teams Supervisor Carbon Paper Coating Relationship Specialty Start Date End Date Alex Orozco MD PCP - General Family Practice 11/23/19 [address] [place] [address] documented as of this encounter
--- OUTSIDE RECORDS SUMMARY | 2022-02-09 21:15 | XMS_ITS | Encounter Summary ---
:1945 Author Organization [employer] Address [address] [place] [address] Care Team Providers Name Role Phone Alex Orozco MD Primary Care Provider Reason for Visit Reason Comments Medication Questions Encounter Details Date Type Department Care Team Description 11/18/2020 Telephone [facility] Rozina Beckett, manager process improvement Questions [address] [place], [place] [address] Social History Tobacco Use Types Packs/Day Years Used Date Smoking Tobacco: Never Smokeless Tobacco: Never Alcohol Use Standard Drinks/Week Comments Not Currently 0 (1 standard drink = 0.6 oz pure alcoho l) Sex Assigned at Date Recorded Female 10/30/2020 7:58 AM CDT documented as of this encounter Nursing Notes Rozina Beckett, RN - 11/20/2020 11:15 AM CDT Call to Cinthia with Dr. Ibarra's response. She said she will try holding off on taking the morning dose of clonazepam. Mtaeo Ibarra MD - 11/18/2020 3:50 PM CDT There are lots of reasons blurry vision can occur, I don't think the Lyrica is causing as it was higher dose previously. If still exhausted would consider eliminating morning clonazepam dose. Mateo Ibarra MD Rozina Beckett RN - 11/18/2020 1:14 PM CDT Patient called and left a message that she stopped melatonin and she is still exhausted in the morning. Also said that her vision is still blurry and wondered if from Lyrica? Please advise. documented in this encounter Plan of Treatment Not on filedocumented as of this encounter Visit Diagnoses Not on filedocumented in this encounter Care Teams Blanker Press Operator Relationship Specialty Start Date End Date Alex Orozco MD PCP - General Family Practice 11/23/19 [address] [place] [address] documented as of this encounter
--- OUTSIDE RECORDS SUMMARY | 2022-02-09 21:15 | XMS_ITS | Encounter Summary ---
:1945 Author Organization [facility] Address [address] [place] [address] Care Team Providers Name Role Phone Alex Orozco MD Primary Care Provider Reason for Referral Consult/Transfer Care (Routine) - New Request Specialty Diagnoses / Procedures Referred By Contact Refer red To Contact Pain Management Diagnoses Neuropathic pain syndrome (non-herpetic) Endy Benedict DO [id number] [address] [place] [address] [facility] [place] [address] Phone: Referral ID Status Reason Start Date Expiration Date Visits V isits Requested Authorized [id number] New Request 01/06/2021 04/07/2022 1 1 Scheduling Instructions Your provider has recommended an appoint ment with [facility]. If you have questions about your upcoming visit , you may call [phone]. This recommended service/s may not be covered by your ins urance coverage. To find out your specific benefit coverage, please call the number on your insurance card. edication Prior Authorization - Denied Specialty Diagnoses / Procedures Referred By Contact [place] [address] [place] [address] Referral ID Status Reason Start Date Expiration Date Visits Requ ested Visits Authorized [id number] Denied 1 1 Reason for Visit Reason Comments Medication Questions Encounter Details Date Type Department Care Team Description 01/02/[address] [facility] [address] Endy Benedict Medi cation Questions Rehabilitative Medic jose angel LOPEZ [address] [address] [address], [place] [address] [phone] Social History Tobacco Use Types Packs/Day Years Used Date Smoking Tobacco: Never Smokeless Tobacco: Never Alcohol Use Standard Drinks/Week Comments Not Currently 0 (1 standard drink = 0.6 oz pure alcoho l) Sex Assigned at Date Recorded Female 10/30/2020 7:58 AM CDT documented as of this encounter Progress Notes Endy Benedict DO - 01/06/2021 10:21 AM CDT Addended by: ENDY BENEDICT on: 01/06/2021 10:21 AM Modules accepted: Orders documented in this encounter Nursing Notes Rita Hart RN - 01/06/2021 1:05 PM CDT Updated patient. No further questions or concerns at this time. Rita Hart RN - 01/06/2021 11:22 AM CDT A message was left for the patient to return our call. Endy Benedict DO - 01/06/2021 11:10 AM CDT The tizanidine is more for her spasticity. I would like her to continue this medication as hopefullyit is helping to reduce her muscle spasticity. We can discuss this further at her follow-up visit. Radha Bearden RN - 01/06/2021 10:25 AM CDT The tizanidine was not helping her pain anymore so she wanted to stop it. Would you like me to discontinue it from her medication list and fax the discontinuation to her care facility? Endy Benedict DO - 01/06/2021 10:00 AM CDT Reviewed notes. I am somewhat unclear why we are discontinuing the tizanidine. Are we thinking that this made her anxiety worse? She has significant anxiety at baseline. I am using this more for her spasticity. I think she may also benefit from my Pain Clinic consult. Tizanidine is not a medication that I frequently prescribed. Referral to Pain Clinic signed. Perlita Stuart RN - 01/06/2021 9:51 AM CDT The prior authorization for the hydroxyzine was denied. Cinthia is aware of this and will speak with Dr. Benedict about this tomorrow at her appt. Oriana Amaya RN - 01/06/2021 9:42 AM CDT Patient calling in stating that [facility] has not received an order to stop the Tizanidine.They need an order stating that she can stop it. Please fax to them at [phone]. IT Oriana Amaya RN - 01/06/2021 8:11 AM CDT Patient calling in wanting to know if 2 medications were prescribed. Materials Manager stated that only one wasprescribed. Patient wanted the spelling of the medication so she can talk to the nurse at her AL. Nofurther questions or concerns. Radha Bearden RN - 01/02/2021 4:05 PM CDT Updated [facility] and faxed the order to them at [phone]. Also updated patient who verbalized understanding. No further concerns noted. Radha Bearden RN - 01/02/2021 3:59 PM CDT Spoke with Dr. Antony who gave verbal order for hydroxyzine 25mg tablet TID PRN, quantity of 30. Repeated verbal order back to provider who confirmed it to be correct. Order signed. Dr. Antony states it is okay for patient to stop taking Tizandine. Radha Bearden RN - 01/02/2021 3:12 PM CDT 1. Spoke with Claudia at [facility] in [place] who confirms patient is taking Tizanidine TID. Patient is tearful and reports feeling very anxious about her medications and pain. She was under the impression tizanidine is for nerve pain. Discussed with her it is a muscle relaxer. She states it is not helping with her pain anymore so she would like to know if she should continue to take it. 2. Patient reports she is currently taking Cymbalta 40mg daily, Tylenol 1,000mg TID, and Tizanidine 2mg TID but just refused the afternoon dose because it does not help. Also take clonzapem 0.5mg TID for anxiety. Discussed deep breathing exercises with her to calm her down in hopes it will also reduceher pain. Scheduled her for follow up with Dr. Benedict next Tuesday. She would like to know what she can do for the pain in the meantime and requests an on-call doctor address this. 3. Patient would like to know if Botox 400 units has been approved. This nurse spoke with Stefany whoconfirmed that patient has been approved for 2,000 units total over the course of 12/12/20-12/12/21 which means if she gets botox every 3 months, 4 times a year, she can receive up to 500 units each time. Updated patient with this information and she is very pleased. EMERSON Mccall NF ?? 9:33 AM Note Received clarification from [place]. ?? Patient is approved for Botox-J0585 quantity of 2,000 units in approval period. ?? Approved from 12/12/2020-12/12/2021. ?? Approval letter sent to scan doc. Please update patient 4. Left voice message for the [facility] nurse Lynne per patient request in regards to her anxiety management. Requested Lynne work with patient PCP or Mental Health provider to better manage her anxiety per patient request. Instructed Lynne to call us back if she has questions. Endy Benedict DO - 01/02/2021 3:03 PM CDT She should be taking the tizanidine 2 mg 3 times per day. I would like to schedule a follow-up visitto try making adjustments to the medication. Potentially we could increase the dose further if it iswell tolerated. Potentially higher dose would provide more significant benefit. Oriana Amaya RN - 01/02/2021 2:59 PM CDT Patient calling in stating the Tizanidine is not helping with her pain at all. She became tearful and frustrated as she did not know how much she was taking. She stating she is in an AL and just takes what they give her. She states she just refused the medication and is wondering if this is something she needs to wean off? documented in this encounter Plan of Treatment Scheduled Referrals Name Type Priority Associated Diagnoses Order S chedule PAIN CONSULT - ADULT Referral Routine Neuropathic pain syn drome Ordered: 01/06/2021 (non-herpetic) documented as of this encounter Visit Diagnoses Diagnosis Neuropathic pain syndrome (non-herpetic) - Primary Neuralgia, neuritis, and radiculitis, un specified documented in this encounter Care Teams Admissions Coordinator Relationship Specialty Start Date End Date Alex Orozco MD PCP - General Family Practice 11/23/19 [address] [place] [address] documented as of this encounter
--- OUTSIDE RECORDS SUMMARY | 2022-02-09 21:15 | XMS_ITS | Encounter Summary ---
:1945 Author Organization [employer] Address [address] [place] [address] Care Team Providers Name Role Phone Alex Orozco MD Primary Care Provider Reason for Visit Reason Comments Medication Side Effects Encounter Details Date Type Department Care Team Description 12/09/2020 Telephone [facility] Rozina Beckett RN Medication Side Effects [address] [place] [address] Social History Tobacco Use Types Packs/Day Years Used Date Smoking Tobacco: Never Smokeless Tobacco: Never Alcohol Use Standard Drinks/Week Comments Not Currently 0 (1 standard drink = 0.6 oz pure alcoho l) Sex Assigned at Date Recorded Female 10/30/2020 7:58 AM CDT documented as of this encounter Nursing Notes Rita Hart RN - 12/11/2020 11:47 AM CDT Updated patient. No further questions or concerns at this time. Radha Bearden RN - 12/11/2020 10:57 AM CDT Left voice message instructing the patient to call [facility] back at [phone] and select option 2 to speak with a nurse. Axel Benedict DO - 12/11/2020 8:44 AM CDT I discussed this with Dr. Ibarra. It sounded as though the patient also had some drowsiness from Lyrica. I wonder if now that she is off of the Lyrica we could retrialed the baclofen. I would like herto try it for a week or 2. If it causes drowsiness then we can discontinue it and trial an alternative. Mateo Ibarra MD - 12/09/2020 3:06 PM CDT I let him know that she had sleepiness as a side effect. Mateo Ibarra MD Rozina Beckett RN - 12/09/2020 11:33 AM CDT Cinthia called again today asking that Dr. Ibarra get in touch or forward to Dr. Pacheco the problems or side effects she had from baclofen. I do not see any adverse effects listed under allergies and there are too many phone encounters to go through to find if there was an issue. If you recall can you please notify Dr. Pacheco? documented in this encounter Plan of Treatment Not on filedocumented as of this encounter Visit Diagnoses Not on filedocumented in this encounter Care Teams Systems Test Analyst Relationship Specialty Start Date End Date Alex Orozco MD PCP - General Family Practice 11/23/19 [address] [place] [address] documented as of this encounter
--- OUTSIDE RECORDS SUMMARY | 2022-02-09 21:15 | XMS_ITS | Encounter Summary ---
:[address] [facility] Address [address] [place] [address] Care Team Providers Name Role Phone Alex Orozco MD Primary Care Provider Reason for Visit Reason Comments QUESTIONS, GENERAL Encounter Details Date Type Department Care Team Description 11/05/2020 Telephone [facility] [address] Claudia Payne Q UESTIONS, GENERAL Neurology RN [address] [place], [place] [address] Social History Tobacco Use Types Packs/Day Years Used Date Smoking Tobacco: Never Smokeless Tobacco: Never Alcohol Use Standard Drinks/Week Comments Not Currently 0 (1 standard drink = 0.6 oz pure alcoho l) Sex Assigned at Date Recorded Female 10/30/2020 7:58 AM CDT documented as of this encounter Nursing Notes Mateo Ibarra MD - 11/06/2020 7:32 AM CDT Glad it is better Claudia Payne RN - 11/05/2020 4:08 PM CDT Pt calling back and informed that her feet are fine now and she is able to walk on both of them again. IT Claudia Payne RN - 11/05/2020 3:55 PM CDT Pt calling - she had botox on 11/03 and the amount used was increased from previous injection. She is now experiencing painful arching in both of her feet and unable to use her L foot when walking. Sheasks if this is related to botox and if anything can be done. documented in this encounter Plan of Treatment Not on filedocumented as of this encounter Visit Diagnoses Not on filedocumented in this encounter Care Teams Safety Net Maker Relationship Specialty Start Date End Date Alex Orozco MD PCP - General Family Practice 11/23/19 [address] [place] [address] documented as of this encounter
--- OUTSIDE RECORDS SUMMARY | 2022-02-09 21:15 | XMS_ITS | Encounter Summary ---
:1945 Author Organization [facility] Address [address] [place] [address] Care Team Providers Name Role Phone Alex Orozco MD Primary Care Provider Reason for Visit Reason Comments Medication Questions Encounter Details Date Type Department Care Team Description 12/12/2020 Telephone [facility] [address] Axel Benedict, Medi cation Questions Rehabilitative Medic ine DO [address] [address] [place] [address] [phone] Social History Tobacco Use Types Packs/Day Years Used Date Smoking Tobacco: Never Smokeless Tobacco: Never Alcohol Use Standard Drinks/Week Comments Not Currently 0 (1 standard drink = 0.6 oz pure alcoho l) Sex Assigned at Date Recorded Female 10/30/2020 7:58 AM CDT documented as of this encounter Nursing Notes Stefany Thompson CMA - 01/02/2021 3:32 PM CDT For Clarification patient is Approved for Botox J0585 a Maximum of 2,000 units in approval period 12/12/2020-12/12/2021, meaning Botox is administered Once every 3 months and Patient is authorized to receive a maximum of 500 units Q 3 months with current approval. Thanks Radha Bearden RN - 12/23/2020 9:06 AM CDT Updated patient who verbalized understanding. No questions or additional concerns noted at this time. Radha Bearden RN - 12/23/2020 8:59 AM CDT Left voice message instructing the patient to call [facility] back at [phone] and select option 2 to speak with a nurse. IT Axel Benedict DO - 12/22/2020 3:56 PM CDT I would hold on additional increases at this time. This medication can take multiple weeks to begin to provide relief. I do not want to increase it to soon too quickly as higher doses can have more significant side effects.re Rita Hart RN - 12/22/2020 1:42 PM CDT Patient would like to know if she can increase her Cymbalta further due to significant nerve pain inthe left hand and left leg and is constant. Radha Bearden RN - 12/22/2020 10:19 AM CDT Left voice message instructing the patient to call [facility] back at [phone] and select option 2 to speak with a nurse. Axel Benedict DO - 12/22/2020 7:40 AM CDT It is my understanding that the Lyrica was discontinued due to side effects. The Cymbalta/duloxetinewas a replacement to hopefully help with nerve pain. We will review the dosing of this when she comes in for Botox injections. The current dose of 40 mg typically is reasonable to improve nerve relatedpain. Debo Oconnell RN - 12/19/2020 10:37 AM CDT Updated patient. She wants to confirm that she will be getting 400 units at her appt 01/27. Please advise. Patient also reports nerve pain on the whole left side of her body. Mainly leg and arm. She is living in [place] she does not know what she takes. Thinks she is taking Cymbalta. Does not think she is takingthe Lyrica.. please advise Perlita Stuart RN - 12/19/2020 9:41 AM CDT LMTCB on VM. Pt is also currently on an atb. Radha Bearden RN - 12/19/2020 9:39 AM CDT Left voice message instructing the patient to call [facility] back at [phone] and select option 2 to speak with a nurse. Stefany Thompson CMA - 12/19/2020 9:30 AM CDT Received clarification from [employer] [place]. Patient is approved for Botox-J0585 quantity of 2,000 units in approval period. Approved from 12/12/2020-12/12/2021. Approval letter sent to scan doc. Please update patient Stefany Thompson CMA - 12/17/2020 9:56 AM CDT [employer] [place] APPR[place] BOTOX 200 UNIT VIAL. We don't use this strength. Submitted documentation to have approval letter Changed. Pending Stefany Thompson CMA - 12/12/2020 3:18 PM CDT Patient Insurance: [place] [facility] Drug and Code: BOTOX-J0585 Units: 400 Outcome: TBD Date Range: TBD Authorization Number: PENDING - [id number] documented in this encounter Plan of Treatment Not on filedocumented as of this encounter Visit Diagnoses Not on filedocumented in this encounter Care Teams Paper And Prints Restorer Relationship Specialty Start Date End Date Alex Orozco MD PCP - General Family Practice 11/23/19 [address] [place] [address] documented as of this encounter
--- OUTSIDE RECORDS SUMMARY | 2022-02-09 21:15 | XMS_ITS | Encounter Summary ---
:1945 Author Organization [facility] Address [address] [place] [address] Care Team Providers Name Role Phone Alex Orozco MD Primary Care Provider Reason for Visit Reason Comments BOTOX INJECTION Encounter Details Date Type Department Care Team Description 12/18/2020 Telephone [facility] Axel Benedict, BOTOX INJECTION Medicine [address] [facility] [address] [place], [place] [address] [place] [address] [phone] Social History Tobacco Use Types Packs/Day Years Used Date Smoking Tobacco: Never Smokeless Tobacco: Never Alcohol Use Standard Drinks/Week Comments Not Currently 0 (1 standard drink = 0.6 oz pure alcoho l) Sex Assigned at Date Recorded Female 10/30/2020 7:58 AM CDT documented as of this encounter Nursing Notes Perlita Stuart RN - 12/19/2020 9:42 AM CDT I did leave a message for the pt to call back. Please see phone encounter from 12/12. Stefany Thompson CMA - 12/19/2020 9:33 AM CDT Please see other phone note in regards to Botox PA Rita Hart RN - 12/18/2020 2:36 PM CDT Nursing is currently working on the PA for this. As soon as it is approved, we will inform the patient. Kaity Reardon - 12/18/2020 1:47 PM CDT Pt is scheduled for a Botox injection on 01-27 in [place] and states she takes an antibiotic but unsure what one. Pt states that she is trying to get 400 units authorized by her insurance. Please call when this is done. Radha Bearden RN - 12/18/2020 1:30 PM CDT Patient called and would like to be scheduled for botox. Expresses frustration there is no order forthis and that she would like to get in as soon as possible for this. She would also like to know what was found out about her insurance coverage for it. 12/16/20 OV Note: Recommendations: Visit completed. Patient had significant dizziness with baclofen. This has been discontinued. I did discuss her medication usage with her aide. As the tizanidine is currently ordered as a p.r.n. she isnot taking this on any regular basis. 1. Discussed that tizanidine may be useful in reducing muscle spasticity. Start with 2 mg nightly for 3 days, after that increased to 2 mg 2 times per day for 3 days, then increase to 3 times per day. 2. We will connect with her insurance company regarding baclofen dosing as at least 400 units will be needed. 3. Continue regular stretching. Continue working on distraction techniques. 4. I will see the patient for Botox injections. Update us in 3 weeks with the results of tizanidine. documented in this encounter Plan of Treatment Not on filedocumented as of this encounter Visit Diagnoses Not on filedocumented in this encounter Care Teams Knotter Hand Relationship Specialty Start Date End Date Alex Orozco MD PCP - General Family Practice 11/23/19 [address] [place] [address] documented as of this encounter
--- OUTSIDE RECORDS SUMMARY | 2022-02-09 21:15 | XMS_ITS | Encounter Summary ---
:1945 Author Organization [facility] Address [address] [place] [address] Care Team Providers Name Role Phone Alex Orozco MD Primary Care Provider Reason for Visit Reason Comments Other Encounter Details Date Type Department Care Team Description 12/18/2020 Telephone Careline Alex Orozco MD Other [address] [place], [place] [address] [place] [address] [phone] (Wo rk) Social History Tobacco Use Types Packs/Day Years Used Date Smoking Tobacco: Never Smokeless Tobacco: Never Alcohol Use Standard Drinks/Week Comments Not Currently 0 (1 standard drink = 0.6 oz pure alcoho l) Sex Assigned at Date Recorded Female 10/30/2020 7:58 AM CDT documented as of this encounter Nursing Notes Migdalia Doll - 12/18/2020 5:30 PM CDT Other documented in this encounter Plan of Treatment Not on filedocumented as of this encounter Visit Diagnoses Not on filedocumented in this encounter Care Teams Health Care Social Worker Relationship Specialty Start Date End Date Alex Orozco MD PCP - General Family Practice 11/23/19 [address] [place] [address] documented as of this encounter
--- OUTSIDE RECORDS SUMMARY | 2022-02-09 21:15 | XMS_ITS | Encounter Summary ---
:1945 Author Organization [facility] Address [address] [place] [address] Care Team Providers Name Role Phone Alex Orozco MD Primary Care Provider Reason for Visit Reason Comments Prior Authorization For Medication Encounter Details Date Type Department Care Team Description 01/20/2021 Telephone [facility] [address] Axel Benedict Prio r Authorization Rehabilitative Medic ine DO For Medication [address] [address] [place] [address] [phone] Social History Tobacco Use Types Packs/Day Years Used Date Smoking Tobacco: Never Smokeless Tobacco: Never Alcohol Use Standard Drinks/Week Comments Not Currently 0 (1 standard drink = 0.6 oz pure alcoho l) Sex Assigned at Date Recorded Female 10/30/2020 7:58 AM CDT documented as of this encounter Nursing Notes Radha Bearden RN - 01/26/2021 10:50 AM CDT Updated pharmacist. Axel Benedict DO - 01/26/2021 10:27 AM CDT She can review the use of this med okay andrade at the pain clinic consultation and they can appeal if indicated. Radha Bearden RN - 01/20/2021 10:48 AM CDT Pharmacy called to check on status of PA for hydroxyzine. Informed them that it was denied. Patient was prescribed this on 01/02/21 by covering provider because patient reported the tizanidine was not helping and therefore she did not want to continue taking it. Due to patient reported anxiety and insomnia related to pain patient was prescribed the hydroxyzine by the covering provider. Would you like to appeal the denial, discontinue the medication or prescribe something else? I see on 01/06/21 you advised that the patient continue to take tizanidine so maybe this is not needed after all? documented in this encounter Plan of Treatment Not on filedocumented as of this encounter Visit Diagnoses Not on filedocumented in this encounter Care Teams [employer] Relationship Specialty Start Date End Date Alex Orozco MD PCP - General Family Practice 11/23/19 [address] [place] [address] documented as of this encounter
--- OUTSIDE RECORDS SUMMARY | 2022-02-09 21:15 | XMS_ITS | Encounter Summary ---
:1945 Author Organization [facility] Address [address] [place] [address] Care Team Providers Name Role Phone Alex Orozco MD Primary Care Provider Reason for Visit Reason Onset Date Comments Refill 01/01/2021 Refill 01/02/2021 Encounter Details Date Type Department Care Team Description 01/01/2021 Refill [facility] [address] Lucy Benedict S, DO Refill; Refill Rehabilitative Medic ine [address] [address] [place] [address] [place] [address] [phone] Social History Tobacco Use Types Packs/Day Years Used Date Smoking Tobacco: Never Smokeless Tobacco: Never Alcohol Use Standard Drinks/Week Comments Not Currently 0 (1 standard drink = 0.6 oz pure alcoho l) Sex Assigned at Date Recorded Female 10/30/2020 7:58 AM CDT documented as of this encounter Nursing Notes Radha Bearden RN - 01/02/2021 11:19 AM CDT Updated patient script was sent yesterday. Rita Hart RN - 01/01/2021 3:10 PM CDT Pharmacy did not receive the order for tizanidine as it was printed not electronically seen. Patienthad a video visit on 12/16 so she did not receive the rx. Electronically sent over. documented in this encounter Plan of Treatment Not on filedocumented as of this encounter Visit Diagnoses Not on filedocumented in this encounter Care Teams Rope Tier Relationship Specialty Start Date End Date Alex Orozco MD PCP - General Family Practice 11/23/19 [address] [place] [address] documented as of this encounter
--- OUTSIDE RECORDS SUMMARY | 2022-02-09 21:15 | XMS_ITS | Encounter Summary ---
:1945 Author Organization [employer] Address [address] [place] [address] Care Team Providers Name Role Phone Alex Orozco MD Primary Care Provider Reason for Visit Reason Comments Questions Encounter Details Date Type Department Care Team Description 02/02/2021 Telephone [facility] Rozina Beckett, RN Questions [address] [place], [place] [address] Social History Tobacco Use Types Packs/Day Years Used Date Smoking Tobacco: Never Smokeless Tobacco: Never Alcohol Use Standard Drinks/Week Comments Not Currently 0 (1 standard drink = 0.6 oz pure alcoho l) Sex Assigned at Date Recorded Female 10/30/2020 7:58 AM CDT documented as of this encounter Nursing Notes Rozina Beckett, RN - 02/02/2021 1:51 PM CST REMEDIOS-Cinthia called again said she was instructed to call her neurologist about her nerve pain. She also states she is so full of anxiety that the Botox won't work. I told her that anxiety does not cause Botox not to work for what it is supposed to do but it can certainly cause her symptoms to beworse. I also checked with Dr. Ibarra about who is currently managing her and he said Dr. Benedict is. She should be patient for a few weeks and then contact him if no results. Cinthia was crying and concerned she has no neurologist. I tried to assure her that currently her concerns of pain are being managed by PMR. ING OPERATIONS INSPECTOR Mateo Ibarra MD - 02/02/2021 10:55 AM CST She had her most recent injections with Dr. Benedict in [facility]. I would say to give it at least a few more weeks before she decides if it's working. It doesn't workinstantaneously. Mateo Ibarra MD ING OPERATIONS INSPECTOR Rozina Beckett, MONICA - 02/02/2021 9:27 AM CST Patient left a message on nurse line asking Dr. Ibarra if her severe anxiety could be causing her Botox not to work? Is she seeing someone else for Botox out in [place]? Who do we direct this to? ING OPERATIONS INSPECTOR documented in this encounter Plan of Treatment Not on filedocumented as of this encounter Visit Diagnoses Not on filedocumented in this encounter Care Teams Software Quality Analyst Relationship Specialty Start Date End Date Alex Orozco MD PCP - General Family Practice 11/23/19 [address] [place] [address] documented as of this encounter
--- OUTSIDE RECORDS SUMMARY | 2022-02-09 21:15 | XMS_ITS | Encounter Summary ---
:1945 Author Organization [employer] Address [address] [place] [address] Care Team Providers Name Role Phone Alex Orozco MD Primary Care Provider Reason for Visit Reason Comments Follow-up medication reaction Encounter Details Date Type Department Care Team Description 12/16/2020 Telemedicine Endy Santana, Spastic he [place] [address] [address] [facility] [place] [address] [place], [place] ([facility]) (Primary Dx) [phone] [id number] Social History Tobacco Use Types Packs/Day Years Used Date Smoking Tobacco: Never Smokeless Tobacco: Never Alcohol Use Standard Drinks/Week Comments Not Currently 0 (1 standard drink = 0.6 oz pure alcoho l) Sex Assigned at Date Recorded Female 10/30/2020 7:58 AM CDT documented as of this encounter Patient Instructions Patient InstructionsEndy Benedict, DO - 12/16/2020 1:20 PM CDT Visit completed. Patient had significant dizziness with [...] results of tizanidine. documented in this encounter Progress Notes Endy Benedict DO - 12/16/2020 1:20 PM CDT Addended by: ENDY BENEDICT on: 12/16/2020 03:14 PM Modules accepted: Orders Najma Mendez MA - 12/16/2020 1:20 PM CDT Before we can start this telephone/video visit, the patient verbally consents to the followin. Patient name and date of : confirmed 2. Demonstrates an understanding of the limitations with a telephone/virtual visit: yes 3. Physical location of patient in case of emergency: home 4. The telehealth visit will be billed to their insurance: yes 5. As a reminder, the [employer] Blucar[employer] number that your provider calls on is random and not monitored. If you have questions, do not call back the [employer] number but instead please call the nurse line at [phone] option #2 Endy Benedict DO - 12/16/2020 1:20 PM CDT PHYSICAL MEDICINE AND REHABILITATION Follow up Chief Complaint: Chief Complaint Patient presents with ??? Follow-up medication reaction History of Present Illness: Cinthia Wagner is a 75 y.o. female who is interviewed as a video visit regarding left-sided spastic hemiplegia and left-sided pain.. 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 She began to experience spasticity on the left side multipleyears. Initially she noted curling of the toes and fingers. Over time the symptoms have progressed. She moved to [place] in 2017. At that time symptoms were [...] lives in a long-term care facility. Follow-up today: Patient experience significant dizziness with the baclofen dosing. She is having significant rigidity in the left upper extremity. She notes that her movement is quite limited. She is wondering about other treatment options. We did discuss the care with her nursing faculty who reports that the patient has not been taking the tizanidine on a regular basis as it is ordered as a p.r.n.. The soonest that she could do Botox would February 03 as last round was 11/03/20. Mental health: Dr Benitez is her psychiatrist for management of her anxiety and depression. She feels that her anxiety is significant She is scheduled to work with a psychologist randee Chawla. Duloxetine 40 mg daily Tizanidine only as needed, not taking regularly Baclofen cause significant dizziness discontinued Lyrica caused significant somnolence and blurry vision, it was since discontinued. Therapies: PT 2 times per week. She can walk 1 block. Past Medical History: Past Medical History: Diagnosis Date ??? Anxiety ([facility]) ??? CKD (chronic kidney disease) ??? Hyperlipemia ([facility]) ??? Hypertension ([facility]) ??? Melanoma ([facility]) ??? Prediabetes ??? Stroke ([facility]) R frontal hemorrhage, 2010 ??? Thyroid disease ([facility]) Medications: The patient has a current medication list which includes the following prescription(s):acetaminophen, clonazepam, duloxetine, fluticasone propionate, lansoprazole, levothyroxine, melatonin, metoprolol tartrate, multivitamin, onabotulinumtoxina, polyethylene glycol, ramipril, sertraline, and tizanidine. Allergies: Acyclovir, Adhesive, and Omnicef [cefdinir] Social History: Single Review of Systems: As per history of present illness. All other systems are negative. Physical Examination: General/Constitutional: Well-developed, well-nourished individual in no acute distress. Mental Status: Appropriate mood, grossly oriented with coherent speech and thought processing. Data: Assessment: ICD-10-CM 1. Spastic hemiplegia affecting nondominant side ([facility]) G81.10 Recommendations: Visit completed. Patient had significant dizziness [...] 3 weeks with the results of tizanidine. We discussed the anatomy of the spine [...] Endy Benedict DO Physical Medicine and Rehabilitation documented in this encounter Plan of Treatment Not on filedocumented as of this encounter Visit Diagnoses Diagnosis Spastic hemiplegia affecting nondominant side ([facility]) - Primary Spastic hemiplegia affecting nondominant side documented in this encounter Care Teams Outsole Paraffiner Relationship Specialty Start Date End Date Alex Orozco MD PCP - General Family Practice 11/23/19 [address] [place] [address] documented as of this encounter
--- OUTSIDE RECORDS SUMMARY | 2022-02-09 21:15 | XMS_ITS | Encounter Summary ---
:1945 Author Organization [facility] Address [address] [place] [address] Care Team Providers Name Role Phone Alex Orozco MD Primary Care Provider Reason for Visit Reason Comments CONSULT Consult/Transfer Care (Routine) - Closed Specialty Diagnoses / Procedures Referred By Contact Refer red To Contact Diagnoses Spasticity Mateo Ibarra MD [address] [place], [place] [address] Referral ID Status Reason Start Date Expiration Date Visits Requ ested Visits Authorized [id number] Closed 11/03/2020 02/02/2022 1 1 Encounter Details Date Type Department Care Team Description 12/08/2020 Telemedicine Axel Santana, Spastic he miplegia affecting nondominant side ([facility]) (Primary Dx); Rehabilitative Medic ine DO Anxiety and depression; [address] [address] [address] Neuropathic pain syndrome (non-herpetic) [place] [address] [place], [place] [phone] [id number] Social History Tobacco Use Types Packs/Day Years Used Date Smoking Tobacco: Never Smokeless Tobacco: Never Alcohol Use Standard Drinks/Week Comments Not Currently 0 (1 standard drink = 0.6 oz pure alcoho l) Sex Assigned at Date Recorded Female 10/30/2020 7:58 AM CDT documented as of this encounter Patient Instructions Patient InstructionsAxel Benedict, DO - 12/08/2020 11:00 AM CDT Consultation completed by video. Patient experiencing challenges in several areas including in her mental health particularly with anxiety and also with depression. She has significant spasticity in the left upper and left lower extremities from a prior stroke. She has received Botox injections from Dr. Ibarra to help manage her symptoms. On exam today significant spasticity remains in the left upper extremity. She also notes that she continues to experience significant symptoms in the left lower extremity. Difficulty with elbow extension and with finger extension noted. She also notes that she has substantial amounts of pain that continuing the left upper and left lower extremity. 1. We will trial increasing patient's oral spasticity medications to hopefully improve symptoms. Placed order for baclofen to be taken 2 times per day on a scheduled basis. If it is tolerated the dose can potentially be increased to 3 times per day. 2. Placed an order for increasing her duloxetine to 40 mg daily. It appears that this was Dr. Ibarra's in tension on the prescription however does not seem that this translate did to her medication regimen at her facility. 3. We will discuss ongoing Botox injections with Dr. Ibarra. I do think she would likely benefit from significantly higher doses, would likely plan to increase dose to 400 units, potentially this could be increased further in the future. 4. After confirming plan with Dr. Ibarra we will submit for authorization for Botox injections. documented in this encounter Progress Notes Najma Mendez MA - 12/08/2020 11:00 AM CDT Before we can start this telephone/video visit, the patient verbally consents to the followin. Patient name and date of : confirmed 2. Demonstrates an understanding of the limitations with a telephone/virtual visit: yes 3. Physical location of patient in case of emergency: home 4. The telehealth visit will be billed to their insurance: yes 5. As a reminder, the [employer] number that your provider calls on is random and not monitored. If you have questions, do not call back the [employer] CarePayment[employer] number but instead please call the nurse line at [phone] option #2 Axel Benedict, - 12/08/2020 11:00 AM CDT PHYSICAL MEDICINE AND REHABILITATION VIDEO VISIT - INITIAL VISIT Referral Source: Mateo Ibarra MD [address] [place] [address] Chief Complaint: Chief Complaint Patient presents with ??? CONSULT History of Present Illness: Cinthia Wagner is a 75 y.o. female who is interviewed as a video visit regarding left-sided spastic hemiplegia and left-sided pain.. 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 She began to experience spasticity on the left side multipleyears. Initially she noted curling of the toes and fingers. Over time the symptoms have progressed. She moved to [place] in 2016. At that time symptoms were [...] Patient lives in a long-term care facility. Today: Pain 8-9/10, constant, aching, rigidity. Pain located on the left side of the body Mental health: Dr Benitez is her psychiatrist for management of her anxiety and depression. She feels that her anxiety is significant She is scheduled to work with a psychologist randee Chawla. Duloxetine 20mg Lyrica caused significant somnolence and blurry vision, [...] medication list which includes the following prescription(s):acetaminophen, baclofen, clonazepam, duloxetine, fluticasone propionate, lansoprazole, levothyroxine, melatonin, metoprolol tartrate, multivitamin, onabotulinumtoxina, polyethylene glycol, pregabalin, r amipril, sertraline, and tizanidine. Allergies: Acyclovir, Adhesive, and Omnicef [cefdinir] Social History: Single Review of Systems: As per history of present illness. All other systems are negative. Physical Examination: General/Constitutional: Well-developed, well-nourished individual in no acute distress. Mental Status: Appropriate mood, grossly oriented with coherent speech and thought processing. Neurologic: Cranial nerves: Grossly intact bilaterally Gait/gross motor: Gait reveals normal leonardo and stride. Strength: Active movement of the left upper extremity. Limited elbow extension. Unable to open the fingers of the left hand. Patient notes that she feels difficulty moving the arm away from body. Data: Assessment: ICD-10-CM 1. Spastic hemiplegia affecting nondominant side ([facility]) G81.10 2. Anxiety and depression ([facility]) F41.9 F32.9 3. Neuropathic pain syndrome (non-herpetic) M79.2 Recommendations: Consultation completed by video. Patient experiencing challenges in several areas including in her mental health particularly with anxiety and also with depression. She has significant spasticity in the left upper and left lower extremities from a prior stroke. She has received Botox injections from Dr. Ibarra to help manage her symptoms. On exam today significant spasticity remains in the left upper extremity. She also notes that she continues to experience significant symptoms in the left lower extremity. Difficulty with elbow extension and with finger extension noted. She also notes that she has substantial amounts of pain that continuing the left upper and left lower extremity. 1. We will trial increasing patient's oral spasticity medications to hopefully improve symptoms. Placed order for baclofen to be taken 2 times per day on a scheduled basis. If it is tolerated the dose can potentially be increased to 3 times per day. 2. Placed an order for increasing her duloxetine to 40 mg daily. It appears that this was Dr. Ibarra's in tension on the prescription however does not seem that this translate did to her medication regimen at her facility. 3. We will discuss ongoing Botox injections with Dr. Ibarra. I do think she would likely benefit from significantly higher doses, would likely plan to increase dose to 400 units, potentially this could be increased further in the future. Would perform an muscles of left upper and left lower extremities. Similar to Dr. Ibarra's protocol with additional medication in the elbow flexors and finger flexors. Additional medication also likely in the lower extremity. 4. After confirming plan with Dr. Ibarra we will submit for authorization for Botox injections. This visit was conducted via video. Location of clinician: clinic Location of patient: home I spent a total of 60 minutes with the patient [id number] as well as reviewing the patient???s medical [...] seen in clinic in the future. Axel Benedict, DO Physical Medicine and Rehabilitation documented in this encounter Plan of Treatment Not on filedocumented as of this encounter Visit Diagnoses Diagnosis Spastic hemiplegia affecting nondominant side ([facility]) - Primary Spastic hemiplegia affecting nondominant side Anxiety and depression ([facility]) Dysthymic disorder Neuropathic pain syndrome (non-herpetic) Neuralgia, neuritis, and radiculitis, un specified documented in this encounter Care Teams Air Pumper Relationship Specialty Start Date End Date Alex Orozco MD PCP - General Family Practice 11/23/19 [address] [place] [address] documented as of this encounter
--- OUTSIDE RECORDS SUMMARY | 2022-02-09 21:15 | XMS_ITS | Encounter Summary ---
:1945 Author Organization [facility] Address [address] [place] [address] Care Team Providers Name Role Phone Alex Orozco MD Primary Care Provider Reason for Visit Reason Comments Questions Encounter Details Date Type Department Care Team Description 11/21/2020 Telephone [facility] [address] Stephanie Cottrell , EMILY Questions Neurology [address] [place], [place] [address] Social History Tobacco Use Types Packs/Day Years Used Date Smoking Tobacco: Never Smokeless Tobacco: Never Alcohol Use Standard Drinks/Week Comments Not Currently 0 (1 standard drink = 0.6 oz pure alcoho l) Sex Assigned at Date Recorded Female 10/30/2020 7:58 AM CDT documented as of this encounter Nursing Notes Fauzia Cote RN - 12/05/2020 3:50 PM CDT Patient seen by provider on 12/03/20. Closing encounter. Elizabeth Guadarrama RN - 11/21/2020 3:23 PM CDT Patient calling as her left side arm/hand is experiencing nerve pain or cellulitis. She is not sure which is which. Wants to change the melatonin to earlier in the evening at meal time. Currently taking at 9pm. Do see a note that patient should try taking 4 hours before bedtime so unclear if she is doing this or not. Call out to patient but had to leave voicemail to call back nurse line. Stephanie Cottrell LPN - 11/21/2020 1:31 PM CDT Routing to [place] patient, Botox at [address] Patient calling to ask more information about the blurriness in her eyes. She stated she has been tot eye doctor and now has new glasses and the symptoms continue. Worried that it is still due to the Lyrica 50 mg. Looking for ideas Nursing also spoke with patient on 11/18/20 documented in this encounter Plan of Treatment Not on filedocumented as of this encounter Visit Diagnoses Not on filedocumented in this encounter Care Teams Assembly Person Relationship Specialty Start Date End Date Alex Orozco MD PCP - General Family Practice 11/23/19 [address] [place] [address] documented as of this encounter
--- OUTSIDE RECORDS SUMMARY | 2022-02-09 21:15 | XMS_ITS | Encounter Summary ---
:1945 Author Organization [employer] Address [address] [place] [address] Care Team Providers Name Role Phone Alex Orozco MD Primary Care Provider Reason for Visit Reason Comments ORDERS Encounter Details Date Type Department Care Team Description 12/03/2020 Telephone [facility] Elizabeth Guadarrama, ORDERS [address] [place] [address] Social History Tobacco Use Types Packs/Day Years Used Date Smoking Tobacco: Never Smokeless Tobacco: Never Alcohol Use Standard Drinks/Week Comments Not Currently 0 (1 standard drink = 0.6 oz pure alcoho l) Sex Assigned at Date Recorded Female 10/30/2020 7:58 AM CDT documented as of this encounter Nursing Notes Elizabeth Guadarrama RN - 12/03/2020 3:43 PM CDT Patient did call back and would like to just discontinue. Faxed signed order to discontinue to [facility]. Elizabeth Guadarrama RN - 12/03/2020 3:09 PM CDT Received another call from patient stating that Dr Ibarra has already stopped the Lyrica so not to worry about it. Did call out to patient and left a message asking her what she wants to do as we have received two conflicting voicemails. Elizabeth Guadarrama RN - 12/03/2020 1:50 PM CDT Patient called as she does not want to stop the Lyrica. She will just have to be sleepy. She doesn't think she will be able to stand the nerve pain. Dr Ibarra, ok with patient continuing on this med? Elizabeth Guadarrama RN - 12/03/2020 10:24 AM CDT Left message for nursing staff to provide us with fax number to stop Lyrica. Will await call back. Placed order on Dr Ibarra's desk to sign order. Elizabeth Guadarrama RN - 12/03/2020 9:46 AM CDT ----- Message from Mateo Ibarra MD sent at 12/03/2020 9:04 AM CDT ----- Regarding: order for pt Can we get her Lyrica stopped? Not sure how they need order done. Thanks Mateo Ibarra MD documented in this encounter Plan of Treatment Not on filedocumented as of this encounter Visit Diagnoses Not on filedocumented in this encounter Care Teams Freight Forwarder Relationship Specialty Start Date End Date Alex Orozco MD PCP - General Family Practice 11/23/19 [address] [place] [address] documented as of this encounter
--- OUTSIDE RECORDS SUMMARY | 2022-02-09 21:15 | XMS_ITS | Encounter Summary ---
:1945 Author Organization [employer] Address [address] [place] [address] Care Team Providers Name Role Phone Alex Orozco MD Primary Care Provider Reason for Visit Reason Comments QUESTIONS, GENERAL Encounter Details Date Type Department Care Team Description 02/10/2021 Telephone [facility] [address] Axel Benedict QUES TIONS, GENERAL Rehabilitative Medic ine DO [address] [place] [address] [place], [place] [phone] (Wo rk) Social History Tobacco Use Types Packs/Day Years Used Date Smoking Tobacco: Never Smokeless Tobacco: Never Alcohol Use Standard Drinks/Week Comments Not Currently 0 (1 standard drink = 0.6 oz pure alcoho l) Sex Assigned at Date Recorded Female 10/30/2020 7:58 AM CDT documented as of this encounter Nursing Notes Debo Oconnell RN - 02/12/2021 1:32 PM CST Updated pt. No further questions or concerns. P KETTLE TENDER Axel Benedict DO - 02/11/2021 5:12 PM CST Anxiety will not prevent the Botox from working although her anxiety is certainly playing a significant role in her pain. I am hopeful that she will begin to notice some improved motion of the arm and hand as well as in the leg. P KETTLE TENDER Debo Oconnell RN - 02/10/2021 3:27 PM CST Patient calling and asking if her anxiety will prevent the botox from working? Reports no pain relief from injection on 01/27. P KETTLE TENDER documented in this encounter Plan of Treatment Not on filedocumented as of this encounter Visit Diagnoses Not on filedocumented in this encounter Care Teams Sewing Teacher Relationship Specialty Start Date End Date Alex Orozco MD PCP - General Family Practice 11/23/19 [address] [place] [address] documented as of this encounter
--- OUTSIDE RECORDS SUMMARY | 2022-02-09 21:15 | XMS_ITS | Encounter Summary ---
:1945 Author Organization [facility] Address [address] [place] [address] Care Team Providers Name Role Phone Alex Orozco MD Primary Care Provider Encounter Details Date Type Department Care Team Description 01/07/2021 Orders Only Initial Department Provider, Brissa, [facility] ONEL ROGERS MD [place], [place] [address] Interface provider [phone] [place] [address] Social History Tobacco Use Types Packs/Day Years Used Date Smoking Tobacco: Never Smokeless Tobacco: Never Alcohol Use Standard Drinks/Week Comments Not Currently 0 (1 standard drink = 0.6 oz pure alcoho l) Sex Assigned at Date Recorded Female 10/30/2020 7:58 AM CDT documented as of this encounter Plan of Treatment Not on filedocumented as of this encounter Procedures Procedure Name Priority Date/Time Associated Diagnosis Comme nts MRI-SCAN 01/07/2021 Results for thi s procedure are in the resu lts section. documented in this encounter Results MRI-SCAN (01/07/2021) Anatomical Region Laterality Modality Other Narrative This result has an attachment that is no t available. Interface Provider DUMMY/OTHER/AR documented in this encounter Visit Diagnoses Not on filedocumented in this encounter Care Teams Securities Underwriter Relationship Specialty Start Date End Date Alex Orozco MD PCP - General Family Practice 11/23/[address] [place] [address] documented as of this encounter
--- OUTSIDE RECORDS SUMMARY | 2022-02-09 21:15 | XMS_ITS | Encounter Summary ---
:1945 Author Organization [facility] Address [address] [place] [address] Care Team Providers Name Role Phone Alex Orozco MD Primary Care Provider Reason for Visit Reason Comments Medication Questions Encounter Details Date Type Department Care Team Description 11/03/2020 Telephone [facility] [address] Dmitriy dication Questions Neurology Ricardo Montague RN [address] [place] [address] Social History Tobacco Use Types Packs/Day Years Used Date Smoking Tobacco: Never Smokeless Tobacco: Never Alcohol Use Standard Drinks/Week Comments Not Currently 0 (1 standard drink = 0.6 oz pure alcoho l) Sex Assigned at Date Recorded Female 10/30/2020 7:58 AM CDT documented as of this encounter Nursing Notes Ricardo Izaguirre RN - 11/04/2020 12:19 PM CDT Left vm for the pt re: response per Dr. Ibarra. discuss with PMR. not sure if they do it with unilateral spasticity though. Message text Besides it being directly administered into the spinal fluid is there anything else that I should discuss. Ricardo Izaguirre RN - 11/03/2020 1:29 PM CDT Pt is inquiring about baclofen. She has tried it in the past and it wasn't beneficial and wants to know why the physician stated that the pump may work. documented in this encounter Plan of Treatment Not on filedocumented as of this encounter Visit Diagnoses Not on filedocumented in this encounter Care Teams Music Arranger Relationship Specialty Start Date End Date Alex Orozco MD PCP - General Family Practice 11/23/19 [address] [place] [address] documented as of this encounter
--- OUTSIDE RECORDS SUMMARY | 2022-02-09 21:15 | XMS_ITS | Encounter Summary ---
:1945 Author Organization [employer] Address [address] [place] [address] Care Team Providers Name Role Phone Alex Orozco MD Primary Care Provider Reason for Visit Reason Comments QUESTIONS, GENERAL Encounter Details Date Type Department Care Team Description 02/24/2021 Telephone [facility] [address] Benedict, RYANNE SÁNCHEZ, GENERAL Rehabilitative Medic ine DO [address] [address] [place] [address] [place], [place] [phone] (Wo rk) Social History Tobacco Use Types Packs/Day Years Used Date Smoking Tobacco: Never Smokeless Tobacco: Never Alcohol Use Standard Drinks/Week Comments Not Currently 0 (1 standard drink = 0.6 oz pure alcoho l) Sex Assigned at Date Recorded Female 10/30/2020 7:58 AM CDT documented as of this encounter Nursing Notes Perlita Stuart RN - 02/27/2021 10:40 AM CST Pt was updated. She requested to speak directly with Dr. Benedict. I explained to her that he was witha pt and that I could help her get set up for a follow up appt with him. Pt declined and ended the call abruptly. Rita Tam RN - 02/25/2021 3:01 PM CST A message was left for the patient to return our call. HANDLER Axel Benedict DO - 02/25/2021 1:51 PM CST I have not had patient has experienced this type of a side effect previously. I have seen some patients with some increased nerve irritation after 1 of the vaccines so I suppose it is possible. Hopefully symptoms will improve with time. We can talk about this more at her follow-up. HANDLER Rita Hart RN - 02/24/2021 8:28 AM CST Patient calling stating that she had her COVID booster 8 days ago and her whole left arm and left leg are very rigid. Not painful and no spasms but very rigid. Patient states that the side that she hadher stroke on seems to be affected by this vaccine. Could the vaccine caused a flare up or this rigid sensation that she is having? HANDLER documented in this encounter Plan of Treatment Not on filedocumented as of this encounter Visit Diagnoses Not on filedocumented in this encounter Care Teams Central Office Trouble Shooter Relationship Specialty Start Date End Date Alex Orozco MD PCP - General Family Practice 11/23/19 [address] [place] [address] documented as of this encounter
--- OUTSIDE RECORDS SUMMARY | 2022-02-09 21:15 | XMS_ITS | Encounter Summary ---
:1945 Author Organization [facility] Address [address] [place] [address] Care Team Providers Name Role Phone Alex Orozco MD Primary Care Provider Encounter Details Date Type Department Care Team Description 01/07/2021 Orders Only Initial Department Provider, Brissa, [facility] ONEL ROGERS MD [place], [place] [address] Interface provider [phone] [place] [address] Social History Tobacco Use Types Packs/Day Years [...] on filedocumented in this encounter Care Teams Diet Clerk Relationship Specialty Start Date End Date Alex Orozco MD PCP - General Family Practice 11/23/[address] [place] [address] documented as of this encounter
--- OUTSIDE RECORDS SUMMARY | 2022-02-09 21:15 | XMS_ITS | Encounter Summary ---
:1945 Author Organization [employer] Address [address] [place] [address] Care Team Providers Name Role Phone Alex Orozco MD Primary Care Provider Reason for Visit Reason Comments IMMUNIZATION QUESTIONS Encounter Details Date Type Department Care Team Description 02/17/2021 Telephone [facility] [address], IMMU NIZATION QUESTIONS Rehabilitative Medic ine DO [address] [address] [place] [address] [phone] Social History Tobacco Use Types Packs/Day Years Used Date Smoking Tobacco: Never Smokeless Tobacco: Never Alcohol Use Standard Drinks/Week Comments Not Currently 0 (1 standard drink = 0.6 oz pure alcoho l) Sex Assigned at Date Recorded Female 10/30/2020 7:58 AM CDT documented as of this encounter Nursing Notes Rita Hart RN - 02/17/2021 1:52 PM CST I spoke to patient and advised her to contact her PCP regarding symptoms she should be looking for post COVID vaccine. OR ACCOUNTANT CPA Debo Oconnell RN - 02/17/2021 1:38 PM CST Pt calling stating she had the Moderna booster shot yesterday. Today she developed ridgidness on the left side of her body. Staff Veterinarian instructed and urged patient to be evaluated in UC. Pt became tearful and ended the phone call. OR ACCOUNTANT CPA documented in this encounter Plan of Treatment Not on filedocumented as of this encounter Visit Diagnoses Not on filedocumented in this encounter Care Teams Mobile Web Application Developer Relationship Specialty Start Date End Date Alex Orozco MD PCP - General Family Practice 11/23/19 [address] [place] [address] documented as of this encounter
--- OUTSIDE RECORDS SUMMARY | 2022-02-09 21:15 | XMS_ITS | Encounter Summary ---
:1945 Author Organization [facility] Address [address] [place] [address] Care Team Providers Name Role Phone Alex Orozco MD Primary Care Provider Reason for Visit Reason Comments CONSULT chronic pain Consult/Transfer Care (Routine) - New Request Specialty Diagnoses / Procedures Referred By Contact Refer red To Contact Pain Management Diagnoses Neuropathic pain syndrome (non-herpetic) Axel Benedict, DO P[facility] [address] [place] [address] 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 Chronic pain syndrome; [id number] [facility] Chronic GERD; [place], [place] [address] Contracture, left hand [id number] [place], [place] [phone] (Wo rk) Social History Tobacco Use Types Packs/Day Years Used Date Smoking Tobacco: Never Smokeless Tobacco: Never Alcohol Use Standard Drinks/Week Comments Not Currently 0 (1 standard drink = 0.6 oz pure alcoho l) Sex Assigned at Date Recorded Female 10/30/2020 7:58 AM CDT documented as of this encounter Patient Instructions Patient InstructionsCaren Beltran APRN, CNP - 03/06/2021 1:00 PM WET POUR MIXER Do not recommend opiates for her chornic pain, and she is not interested in them. She has failed multiple neuopathic and anti spasmotic agents, no other recommendations Acupuncture could be considered but transportation is an issue Reschedule Occupational therapy Lifestyle renewal Continue with DBT as planned Follow up as needed if she can do the medical cannabis while living at [facility] and psychiatry is in agreement POUR MIXER documented in this encounter Progress Notes Njama Mendez MA - 03/06/2021 1:00 PM CST Before we can start this telephone/video visit, the patient verbally consents to the followin. Patient name and date of : confirmed 2. Demonstrates an understanding of the limitations with a telephone/virtual visit: yes 3. Physical location of patient in case of emergency: home 4. The telehealth visit will be billed to their insurance: yes 5. As a reminder, the WELL number that your provider calls on is random and not monitored. If you have questions, please call the nurse line at [phone] option #2 POUR MIXER Caren Beltran APRN, CNP - 03/06/2021 1:00 PM CST PM&R/ Interventional Pain Management Outpatient New Patient Evaluation: Referring provider: Alex Orozco MD Chief complaint: CONSULT (chronic pain) HPI: Cinthia Wagner is a 75 y.o. female seen 03/06/2021 for evaluation for chronic pain. Symptoms: Pain is located: face, left side from shoulder down to toes Pain severity: 12/05 Onset of pain: started with her stroke in 2010 Prior history of pain in neck or low back includes:denies any issues Trend: getting worse Timing: constant Quality: burning nerve pain Pain is aggravated by: anxiety, walking-toes, Pain is improved by: being around niece and nephew and their kids, being distracted Associated symptoms: Numbness/tingling: reports intermittent in her left foot and right foot Weakness: denies Bladder/bowel incontinence: stress incontinence Cinthia is here with chronic pain mainly on her left side. Past medical history includes anxiety and depression, AA dilatation, osteoporosis, Parkinsonism, stroke. She had a stroke in 2010, and she has pain on the left side of her body that has worsened in recent months. She moved here in May 2016 to be with family. She had done Botox to her left side at a clinic in [place] previously had had found that helpful. She had been working with Dr Ibarra in Neurology, and was referred to Dr Bella for Botox, which she reports is no longer providing relief. She is living in an [facility] in [place]. She doesn't have transportation on a regular basis to get to medical appointments in the . She does have significant anxiety and depression. She has been seeing a therapist who had recommended DBT. She reports she had a therapy session at [facility] who told her her pain was caused by Satan and she needed to pray. She is seeing a new therapist starting on Tuesday.she is also followed by psychiatry- Dr Benitez in [place]. She is tearful throughout our visit. She tells me she is hopeless and nothing seems to work and Pain Clinic will just tell her to pray. She has a very poor relationship with her sister. She does love her niece and nephew and their families but they are very busy with their lives. She has a friend at the [facility] who is worse than she. She was seeing Dr Ibarra in neurology, but Cinthia reports he transferred her to Dr Bella so she doesn't have a neurologist Prior treatments: Botox-worked at first, but hasn't helped recently, currently doing PT for her arm,2x/week at [facility], chiropractor-no, acupuncture-no, ice packs to feet-can help, heat -hasn't tried, massage-2x/week Prior medications: baclofen 10mg , Lyrica caused blurred vision, gabapentin- didn't help Current pain management with amitriptyline 25mg, clonazepam 0.25 qid (was previously on 0.5mg tid), duloxetine 50mg [place] issues: Medical disability: none Electric Relay Tester or litigation involved with this issue: none Workman's Compensation injury: none Prior history of car accidents causing neck or low back injuries: none Current exercise regimen includes: does PT 2 times per week, does exercise class at [facility] daily Problem List: reviewed in EMR PMH: reviewed in EMR PSH: reviewed in EMR SOCIAL HISTORY: reviewed in EMR Marital status: single, lives in [facility], no children Occupation: retired Never smoker Denies alcohol use denies drug use MEDICATIONS: reviewed in EMR ALLERGIES: reviewed in EMR FAMILY HISTORY: reviewed in EMR Family history of spine disease: unable to answer ROS: Musculoskeletal ROS: positive for - joint pain negative for - joint redness, joint stiffness or joint swelling The patient reports rigidity,panic attacks, constipation. Denies any problems with headaches, dizziness, painful urination, blood in urine, frequent urination, urinary retention, diarrhea,nausea, vomiting, GI bleeding, stomach pain, skin sores/ulcers, difficulty breathing, chest pain, wheezing, heart p roblems, red/swollen joints, rashes, fatigue, increased bruising. Denies SI Physical Examination: Vital Signs: There were no vitals taken for this visit. There is no height or weight on file to calculate BMI. Physical Exam Constitutional: Appearance: Normal appearance. Eyes: Pupils: Pupils are equal, round, and reactive to light. Pulmonary: Effort: Pulmonary effort is normal. Neurological: Mental Status: She is alert. Psychiatric: Attention and Perception: Attention normal. Mood and Affect: Mood is anxious. Affect is angry and tearful. Speech: Speech normal. Behavior: Behavior normal. Behavior is cooperative. Cognition and Memory: Memory is impaired. Judgment: Judgment normal. Assessment: ICD-10-CM 1. Spastic hemiplegia affecting nondominant side ([facility]) G81.10 2. Chronic pain syndrome G89.4 3. Chronic GERD K21.9 4. 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 She maribel four times daily clonazepam so her risk is high for respiratory depression and . She also has significnat anxiety and depresion which can be worsened by opiates. She has failed multiple neuopathic and anti spasmotic agents Acupuncture could be considered but she doesn't have great transportation so limited to the [place] area. She had previously been referred to [facility] but she had cancelled. She will reschedule video consult She does see psychiatry and psychology, she has been recommended to pursue DBT and she has this scheduled. Her mental health is not good at this time, and worsening her pain. She admits when she is feeling less depressed and anxious, she has less pain She doesn't think medical cannabis is allowed in her [facility]. She doesn't want to get kicked out. Follow up as needed if she can do the medical cannabis while living at [facility] and psychiatry is in agreement SPEECH AND LANGUAGE TUTOR: Reviewed today, no concerns noted. I spent 45 minutes reviewing lab results, performing exam and preparing plan of care. This dictation was created using voice recognition technology. There may be typographical, sound-alike and/or punctuation errors. Caren Beltran APRN, CNP Pain Management POUR MIXER documented in this encounter Plan of Treatment Scheduled Referrals Name Type Priority Associated Diagnoses Order S chedule PAIN CONSULT - ADULT Referral Routine Neuropathic pain syn drome Ordered: 01/06/2021 (non-herpetic) documented as of this encounter Visit Diagnoses Diagnosis Spastic hemiplegia affecting nondominant side (HRC) - Primary Spastic hemiplegia affecting nondominant side Chronic pain syndrome Chronic GERD Contracture, left hand documented in this encounter Care Teams It Help Desk Technician Relationship Specialty Start Date End Date Alex Orozco MD PCP - General Family Practice 11/23/19 [address] [place] [address] documented as of this encounter
--- OUTSIDE RECORDS SUMMARY | 2022-02-09 21:15 | XMS_ITS | Encounter Summary ---
:1945 Author Organization [facility] Address [address] [place] [address] Care Team Providers Name Role Phone Alex Orozco MD Primary Care Provider Reason for Visit Reason Comments BOTOX INJECTION Encounter Details Date Type Department Care Team Description 01/27/2021 Procedure Visit Axel Santana, [place] [address] [place] [address] [place], [place] [phone] [address] Social History Tobacco Use Types Packs/Day Years Used Date Smoking Tobacco: Never Smokeless Tobacco: Never Alcohol Use Standard Drinks/Week Comments Not Currently 0 (1 standard drink = 0.6 oz pure alcoho l) Sex Assigned at Date Recorded Female 10/30/2020 7:58 AM CDT documented as of this encounter Last Filed Vital Signs Vital Sign Reading Time Taken Comments Blood Pressure 130/66 01/27/2021 10:17 AM CDT Pulse 74 01/27/2021 10:17 AM CDT Temperature - - Respiratory Rate - - Oxygen Saturation - - Inhaled Oxygen Concentration - - Weight - - Height - - Body Mass Index - - documented in this encounter Patient Instructions Patient InstructionsAxel Benedict, - 01/27/2021 10:20 AM CDT Patient returns to clinic for follow-up and management of left-sided spastic hemiplegia. Continues to have significant increased muscle tension, limited relief from tizanidine. 1. Discussed risk benefits alternatives of Botox injections, patient elected proceed, performed in clinic today. 2. Continue tizanidine 2 mg 3 times per day. 3. Schedule virtual follow-up in 4 weeks to review results of the injections and discuss medication adjustments. 4. Schedule a consult with the Pain Clinic. I would recommend doing this as a virtual visit for convenience. Botulinum Toxin Information Sheet for PM&R Patients [...] 2 main forms that we use at [facility] PM&R are Xeomin and Botox. They [...] call the clinic and let us know. [phone]. This symptom is not reversible, butwe can [...] days in order to sustain the benefit. documented in this encounter Progress Notes Axel Benedict DO - 01/27/2021 10:20 AM CDT Physical Medicine and Rehabilitation Botox Injections Procedure Reason for referral Left-sided spastic hemiplegia. Subjective Cinthia Wagner presents to clinic for management of left-sided spastic hemiplegia. Oral medications arenot providing adequate benefit. She continues to experience significant symptoms in the left upper and left lower extremity particularly in the finger flexors and toe flexors. Tizanidine is not providing significant benefit. She also continues have significant neuropathic pain the left upper extremity. Adverse drug reactions:Acyclovir, Adhesive, and Omnicef [cefdinir] Medications: Current Outpatient Medications Medication Sig Dispense Refill ??? acetaminophen (TYLENOL) 500 MG tablet Take 1,000 mg by mouth three times a day. Maximum acetaminophen dose is 4000 mg in 24 hours ??? clonazePAM (KLONOPIN) 0.5 MG tablet Take 0.5 mg by mouth three times a day. ??? DULoxetine (CYMBALTA) 20 MG capsule Take 2 Capsules by mouth daily. 60 Capsule 2 ??? fluticasone propionate (FLONASE) 50 MCG/ACT nasal solution 1 [place] by Nasal route daily. ??? hydrOXYzine HCl [...] OnabotulinumtoxinA (BOTOX IJ) 300 Units. 200 units: [id number]; exp 07/19 100 units: [id number]; exp02/17 ??? polyethylene glycol (MIRALAX) 17 g packet Take by mouth daily as needed. ??? ramipril (ALTACE) 10 MG capsule Take 10 mg by mouth two times a day. ??? sertraline (ZOLOFT) 50 MG tablet Take 50 mg by mouth daily. ??? tiZANidine (ZANAFLEX) 2 MG tablet Take 1 Tablet by mouth three times a day. Start with 1 tablet nightly for 3 days, then increase to 1 tablet 2 times per day for 3 days, then increase to 1 tablet 3times per day 90 Tablet 11 No current facility-administered medications for this visit. Objective Vital signs Blood pressure 130/66, pulse 74. Gen. Appearance: Mildly anxious, well groomed, well-appearing [...] Total units of Botox:400 u diluted in 8 mL of preservative-free normal saline Lot: [id number] expiration 03/2023 EMG guidance was used Muscles injected: Muscles Injected # Units # of injection sites EMG Activity Left: Pectoralis major 50 2 2+ Flexor digitorum superficialis 50 1 2+ Flexor digitorum profundus 50 1 2+ 2nd lumbrical, 3rd lumbrical, 4th lumbrical 50 3 2+ Medial gastrocnemius 50 2 2+ Soleus 50 1 3+ Flexor digitorum longus 40 1 2+ Flexor hallucis longus 40 1 2+ Flexor digitorum brevis 20 1 1+ Treatment toleration: Treatment was tolerated well. No complications were noted. Assessment Successful Botox injections for left sided spastic hemiplegia Plan: Patient returns to clinic for follow-up and management of left-sided spastic hemiplegia. Continues to have significant increased muscle tension, limited relief from tizanidine. 1. Discussed risk benefits alternatives of Botox injections, patient elected proceed, performed in clinic today. 2. Continue tizanidine 2 mg 3 times per day. 3. Schedule virtual follow-up in 4 weeks to review results of the injections and discuss medication adjustments. 4. Schedule a consult with the Pain Clinic. I would recommend doing this as a virtual visit for convenience. I spent a total of 20 minutes with the patient [id number] as well as reviewing the patient???s medical [...] not include performing procedures during this encounter. documented in this encounter Plan of Treatment Not on filedocumented as of this encounter Visit Diagnoses Diagnosis Spastic hemiplegia affecting nondominant side (HRC) - Primary Spastic hemiplegia affecting nondominant side documented in this encounter Administered Medications Inactive Administered Medications - up to 3 most recent administrations Medication Order MAR Action Action Date Dose Rate Site botulinum toxin type A (BOTOX) Given 01/27/2021 4:15 PM CDT 400 Units Other injection 400 Units 400 Units, Intramuscular, ONCE, On Tue01/27/21 at 1645, For 1 dose, Preparation: Single glove, gown; face mask optional Administration: Single glove documented in this encounter Care Teams Management Development Specialist Relationship Specialty Start Date End Date Alex Orozco MD PCP - General Family Practice 11/23/19 [address] [place] [address] documented as of this encounter
--- OUTSIDE RECORDS SUMMARY | 2022-02-09 21:16 | XMS_ITS | Encounter Summary ---
:1945 Author Organization [facility] Address [address] [place] [address] Care Team Providers Name Role Phone Alex Orozco MD Primary Care Provider Reason for Visit Reason Comments Symptoms Encounter Details Date Type Department Care Team Description 03/11/2020 Telephone [facility] Fauzia Cote, RN Symptoms [address] [place], [place] [address] Social History Tobacco Use Types Packs/Day Years Used Date Smoking Tobacco: Never Assessed Sex Assigned at Date Recorded Female 10/30/2020 7:58 AM CDT documented as of this encounter Nursing Notes Fauzia Cote RN - 03/18/2020 3:40 PM CST LATE ENTRY: FAXED 03/14/2020. Closing encounter. VIORAL HEALTH WORKER Gely Diallo RN - 03/14/2020 12:41 PM CST Spoke with nurse. Confirmed previous regimen was as listed below. Wrote orders on fax form to send to nurse. They did move up the f/u appt to 03/26 to discuss the mood issues and gait concerns. Nurse Elena at the facility will plan to attend w/ patient for the appointment, per pt's request. Dr. Ibarra - please review/sign if you agree. thanks VIORAL HEALTH WORKER Mateo Ibarra MD - 03/14/2020 11:48 AM CST For the constipation I am okay changing back to what has worked previously. An alternative is to just increase the daily dose of Miralax. I generally increase until you have a dose that works. For the other two concerns I feel like they're not going to be that simple to address and probably we should discuss more at her next visit. We had talked about Botox for the stiffness/pain but I'm also interested to hear how the levodopa has worked. We talked about mood and talked about antidepressants vs. Pseudobulbar affect medications but I think we need to have a discussion about those things. Mateo Ibarra MD Gely Gerardo RN - 03/14/2020 10:06 AM CST Received call from Kassy - nurse at [facility]. 1. Pt is having more mood/irritability/frustration concerns with screaming and crying outbursts. 2. She's having more concerns w/ mobility & rigidity/pain in hands/feet concerns (no falls or near falls, but moving very slowly but no known freezing). 3. She's also having bothersome constipation issues. She takes miralax daily. She did also get mag citrate yesterday; Kassy is not sure yet if it helped. Kassy said the PMD did OK biscadodyl daily for the pt but it did not help in the pt. Kassy said the pt had been on a combination of miralax &Senna-S previously but the scheduled Senna-S was stopped in January and made PRN only. Constipationcontinues to worsen. Pt gets pressure from stool in colon but has a hard time evacuating her bowels.Wondering if pt could hold the bisacodyl and restart Senna-s, 1 tablet daily, plus 1 tab PRN (in addition to her Miralax), which has worked in the past? Dr. Ibarra - thoughts on each issue/concern? Nurse will fax response to [phone]. Fauzia Garcia RN - 03/11/2020 3:28 PM CST Received a message from the facility RN Kassy stating she would like to discuss some of the patients symptoms. Left message asking her to call back into the nurse line with a good time to discuss. Awaiting return call VIORAL HEALTH WORKER documented in this encounter Plan of Treatment Not on filedocumented as of this encounter Visit Diagnoses Not on filedocumented in this encounter Care Teams Business Objects Developer Relationship Specialty Start Date End Date Alex Orozco MD PCP - General Family Practice 11/23/19 [address] [place] [address] documented as of this encounter
--- OUTSIDE RECORDS SUMMARY | 2022-02-09 21:16 | XMS_ITS | Encounter Summary ---
:1945 Author Organization [facility] Address [address] [place] [address] Care Team Providers Name Role Phone Alex Orozco MD Primary Care Provider Encounter Details Date Type Department Care Team Description 09/25/2020 Notes/Orders [facility] [address] (Primary Neurology Ricardo Montague, RN Dx) [address] [place], [place] [address] Social History Tobacco Use Types Packs/Day Years Used Date Smoking Tobacco: Never Smokeless Tobacco: Never Alcohol Use Standard Drinks/Week Comments Not Currently 0 (1 standard drink = 0.6 oz pure alcoho l) Sex Assigned at Date Recorded Female 10/30/2020 7:58 AM CDT documented as of this encounter Progress Notes Ricardo Izaguirre RN - 09/25/2020 11:18 AM CDT New request for 300 units of botox per visit approved. PA dates same as previous approval from 04/28/2021 - 08/12/21. Spoke to Og botox pharmacist at [employer]. documented in this encounter Plan of Treatment Not on filedocumented as of this encounter Visit Diagnoses Diagnosis Spasticity - Primary Abnormal involuntary movements documented in this encounter Care Teams Research Software Engineer Relationship Specialty Start Date End Date Alex Orozco MD PCP - General Family Practice 11/23/19 [address] [place] [address] documented as of this encounter
--- OUTSIDE RECORDS SUMMARY | 2022-02-09 21:16 | XMS_ITS | Encounter Summary ---
:1945 Author [facility] Address [address] [place] [address] Care Team Providers Name Role Phone Alex Orozco MD Primary Care Provider Reason for Visit Reason Comments Follow-up CONSTIPATION apt with PCP today at 1pm to discuss Other Outbursts will kick and sc ream, becoming more frequent. PD related? DEPRESSION and anxiety is higher Encounter Details Date Type Department Care Team Description 03/26/2020 Telemedicine [facility] Mateo Ibarra, Parkinsonism, [address] Parkinsonism type [place], [place] S ([facility]) (Primary Dx) [address] [place], [place] [phone] (Wo rk) Social History Tobacco Use Types Packs/Day Years Used Date Smoking Tobacco: Never Assessed Sex Assigned at Date Recorded Female 10/30/2020 7:58 AM CDT documented as of this encounter Last Filed Vital Signs Vital Sign Reading Time Taken Comments Blood Pressure - - Pulse - - Temperature - - Respiratory Rate - - Oxygen Saturation - - Inhaled Oxygen Concentration - - Weight 59 kg (130 lb) 03/26/2020 10:55 AM BUCKLE STRAP PUNCHER Height - - Body Mass Index - - documented in this encounter Patient Instructions Patient La Nena An RN - 03/26/2020 10:50 AM CST Please note the number that your provider called from is a non-working number for return calls. Please contact us using [employer] or by calling the [facility] nurse line at [phone]. La Nena Banda RN LE STRAP PUNCHER documented in this encounter Progress Notes Mateo Ibarra MD - 03/26/2020 10:50 AM CST [facility] Video Follow-up Note History of Present Illness: Cinthia Wagner is a 74 y.o. 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 She has a history of left hemiplegia following stroke in 2010. However starting in she developed increasing stiffness on the left side as well as micrographia, right hand and head tremor and toe curling in the feet as well as shuffling. She was seen today with her nurse, Kassy. She is now up to two tabs t.i.d. of the levodopa. Has notnoticed any benefit for the stiffness on the left side. Mostly is taking it on an empty stomach. Shealso takes carbidopa for the nausea. She is noting more irritability. She screamed to someone on the phone recently. She reports this hasoccurred in the past and improve when she was on Paxil but that was stopped as she felt it increasedher stiffness. She has talked with her primary doctor and consider changing back to Paxil or possibly sertraline. She continues to note shuffling. Tremor has not improved. She has also been having significant constipation. No bowel movement last three days. Medications: Reviewed in EMR Past medical and social history: Reviewed in EMR Exam: Mental Status: Awake, alert. Fluent. Affect normal. Cranial Nerves: Ocular versions full. No facial weakness. No dysarthria. No tongue fasciculations. Motor: Minimal left hand movement. Apparent right hand bradykinesia Coordination: Finger to nose without dysmetria. Gait: Mild shuffling with left greater than right decreased arm swing Assessment/Plan: 74-year-old female with history of right frontal hemorrhage and possible additionalParkinson disease. She has not had any clear benefit from levodopa thus far thus the diagnosis remains somewhat unclear. Will plan to continue to increase the dose up to three tabs t.i.d.. If she does not notice benefit that point would have to consider botulinum toxin injections. With regards to constipation told her that I typically recommend increasing doses of MiraLax until she has a bowel movement. She also was going to be discussing with this with her primary care doctor and I did note that there are multiple ways to treat constipation. With regard to her outbursts agree that considering going back to Paxil or an alternative antidepressant would be the first thing I would try. I do not typically think of this as a side effect of levodopa. She had questions about transportation for medical visits. Will have her get in touch with our social contact worker. Total time spent with patient, reviewing records, and documentin minutes Physician / patient located at: Clinic/home Note dictated using voice recognition software. Mateo Ibarra MD LE STRAP PUNCHER documented in this encounter Plan of Treatment Not on filedocumented as of this encounter Visit Diagnoses Diagnosis Parkinsonism, unspecified Parkinsonism t ype ([facility]) - Primary documented in this encounter Care Teams Valve Steamer Relationship Specialty Start Date End Date Alex Orozco MD PCP - General Family Practice 11/23/19 [address] [place] [address] documented as of this encounter
--- OUTSIDE RECORDS SUMMARY | 2022-02-09 21:16 | XMS_ITS | Encounter Summary ---
:1945 Author Organization [facility] Address [address] [place] [address] Care Team Providers Name Role Phone Alex Orozco MD Primary Care Provider Encounter Details Date Type Department Care Team Description 06/03/2020 Orders Only [facility]OG[facility] [place], [place] [address] Interface provider [phone] [place] [address] Social History Tobacco Use Types Packs/Day Years Used Date Smoking Tobacco: Never Assessed Sex Assigned at Date Recorded Female 10/30/2020 7:58 AM CDT documented as of this encounter Plan of Treatment Not on filedocumented as of this encounter Procedures Procedure Name Priority Date/Time Associated Diagnosis Comme nts MRI-SCAN 06/03/2020 Results for thi s procedure are in the resu lts section. documented in this encounter Results MRI-SCAN (06/03/2020) Anatomical Region Laterality Modality Other Narrative This result has an attachment that is no t available. Interface Provider DUMMY/OTHER/AR documented in this encounter Visit Diagnoses Not on filedocumented in this encounter Care Teams Leather Goods Assembler Relationship Specialty Start Date End Date Alex Orozco MD PCP - General Family Practice 11/23/[address] [place] [address] [place] [address] documented as of this encounter
--- OUTSIDE RECORDS SUMMARY | 2022-02-09 21:16 | XMS_ITS | Encounter Summary ---
:1945 [facility] Address [address] [place] [address] Care Team Providers Name Role Phone Alex Orozco MD Primary Care Provider Reason for Visit Reason Comments UPDATE Encounter Details Date Type Department Care Team Description 08/01/2020 Telephone [facility] Fauzia Cote, RN UPDATE [address] [place], [place] [address] Social History Tobacco Use Types Packs/Day Years Used Date Smoking Tobacco: Never Smokeless Tobacco: Never Alcohol Use Standard Drinks/Week Comments Not Currently 0 (1 standard drink = 0.6 oz pure alcoho l) Sex Assigned at Date Recorded Female 10/30/2020 7:58 AM CDT documented as of this encounter Nursing Notes Fauzia Cote, RN - 08/01/2020 1:25 PM CDT Spoke with patient. She will setup a telehealth appointment to discuss concerns directly with provider. Closing encounter at this time. Dr. Fred WHITTAKER Fauzia Coet RN - 08/01/2020 11:58 AM CDT Patient reports the baclofen makes her sleepy and is ineffective. She now believes she had tried this medication previously from Dr. Alex Orozco. Patient has not noticed any improvement from Botox injections reporting symptoms are still present on her hand and foot. She would like to know if the provider has any additional recommendations. Patient has not setup an appointment at [place] as previously suggested. documented in this encounter Plan of Treatment Not on filedocumented as of this encounter Visit Diagnoses Not on filedocumented in this encounter Care Teams Chassis Engineer Relationship Specialty Start Date End Date Alex Orozco MD PCP - General Family Practice 11/23/19 [address] [place] [address] documented as of this encounter
--- OUTSIDE RECORDS SUMMARY | 2022-02-09 21:16 | XMS_ITS | Encounter Summary ---
:1945 Author Organization [facility] Address [address] [place] [address] Care Team Providers Name Role Phone Alex Orozco MD Primary Care Provider Reason for Visit Reason Comments Information Encounter Details Date Type Department Care Team Description 07/24/2020 Telephone Specialty Center [address] Izaguirre Neurology L, RN [address] [place], [place] [address] Social History Tobacco Use Types Packs/Day Years Used Date Smoking Tobacco: Never Smokeless Tobacco: Never Alcohol Use Standard Drinks/Week Comments Not Currently 0 (1 standard drink = 0.6 oz pure alcoho l) Sex Assigned at Date Recorded Female 10/30/2020 7:58 AM CDT documented as of this encounter Nursing Notes Ricardo Izaguirre RN - 07/24/2020 11:34 AM CDT Bernie from [facility] team requesting clinicals to be faxed to her attention re: MRIs that were faxed to be completed with them. Faxed to requested number: [phone] documented in this encounter Plan of Treatment Not on filedocumented as of this encounter Visit Diagnoses Not on filedocumented in this encounter Care Teams Sash Sticker Relationship Specialty Start Date End Date Alex Orozco MD PCP - General Family Practice 11/23/19 [address] [place] [address] documented as of this encounter
--- OUTSIDE RECORDS SUMMARY | 2022-02-09 21:16 | XMS_ITS | Encounter Summary ---
:1945 Author Organization [facility] Address [address] [place] [address] Care Team Providers Name Role Phone Alex Orozco MD Primary Care Provider Encounter Details Date Type Department Care Team Description 06/11/2020 Orders Only [facility]OG[facility] [place], [place] [address] Interface provider [phone] [place] [address] Social History Tobacco Use Types Packs/Day Years Used Date Smoking Tobacco: Never Assessed Sex Assigned at Date Recorded Female 10/30/2020 7:58 AM CDT documented as of this encounter Plan of Treatment Not on filedocumented as of this encounter Procedures Procedure Name Priority Date/Time Associated Diagnosis Comme nts MRI-SCAN 06/11/2020 Results for thi s procedure are in the resu lts section. documented in this encounter Results MRI-SCAN (06/11/2020) Anatomical Region Laterality Modality Other Narrative This result has an attachment that is no t available. Interface Provider DUMMY/OTHER/AR documented in this encounter Visit Diagnoses Not on filedocumented in this encounter Care Teams Qc Scientist Relationship Specialty Start Date End Date Alex Orozco MD PCP - General Family Practice 11/23/19 [address] [place] [address] documented as of this encounter
--- OUTSIDE RECORDS SUMMARY | 2022-02-09 21:16 | XMS_ITS | Encounter Summary ---
:1945 Author Organization [employer] Address [address] [place] [address] Care Team Providers Name Role Phone Alex Orozco MD Primary Care Provider Reason for Visit Reason Comments CONSULT Dx?? September 2010 had a stoke Symptoms head tremor, stiffness, shuf fling when walking, fallen out bed twice, strange sense of smell, trou ble swallowing pills, constipation Encounter Details Date Type Department Care Team Description 12/21/2019 Initial Consult [facility] Mateo Ibarra, Parkinsonism, unspecified Pa rkinsonism type (HRC) (Primary Dx); [address] [facility] [address] [place], [place] [phone] [id number] Social History Tobacco Use Types Packs/Day Years Used Date Smoking Tobacco: Never Assessed Sex Assigned at Date Recorded Female 10/30/2020 7:58 AM CDT documented as of this encounter Last Filed Vital Signs Vital Sign Reading Time Taken Comments Blood Pressure 141/69 12/21/2019 1:11 PM CDT Pulse 70 12/21/2019 1:11 PM CDT Temperature - - Respiratory Rate - - Oxygen Saturation - - Inhaled Oxygen Concentration - - Weight 64.9 kg (143 lb) 12/21/2019 1:09 PM CDT shoes on Height - - Body Mass Index - - documented in this encounter Patient Instructions Patient InstructionsMateo Ibarra MD - 12/21/2019 12:50 PM CDT I think this could be Parkinson Disease, but as we discussed it is a little harder to be sure given your prior stroke. Let's try the medication for Parkinson Disease. Here is information about it: Sinemet (carbidopa/levodopa) is a medication that contains two drugs. Levodopa is transported into the brain and converted into dopamine to treat the dopamine deficiency that occurs in Parkinson Disease. Carbidopa works to prevent its conversion in the bloodstream before it gets to the brain. This helps prevent nausea. Protein can compete with the absorption of the Sinemet and its use in the brain. If we are attempting to determine whether the medication is effective, or concerned it is not working well enough, I would recommend taking it either 30- 60 minutes before or 90-120 minutes after meals, especially those with high protein. This can be difficult, so once you become experienced with the effect of the medication you can be more flexible around meals if you notice there is not a drastic change in effectiveness. Often a good schedule is to take it before each meal. This way the medication is taking effect formost of the daytime. Some people have nausea when they first start taking the medication. If you notice this you can eat crackers at the same time. If it continues to be a problem we can consider starting it at a lower dose. Another side effect to look out for is lightheadedness with standing, called orthostatic hypotension. Start taking half of a tablet of Sinemet (carbidopa/levodopa 25/100) three times daily. After two weeks, increase to a full tablet, three times daily. Monitor for improvements in tremor, stiffness, or slowness. Things that may improve are your abilityto get up out of a chair, shuffling while walking, ability to use hands for things like buttoning, volume of speech, drooling. This medication tends not to help things like balance and memory. --Let me know how you're doing after one month. We are likely going to try to keep increasing the dose if you don't have side effects all the way up to 3 tabs, three times daily --Your dream enactment is likely from what is called REM behavior disorder. Take 5mg of melatonin nightly for this. If this doesn't help you can try 10mg. If that doesn't help I usually use clonazepam. --We can also consider trying Botox injections again if the levodopa doesn't work. --Try to get your records from [place] about your stroke. documented in this encounter Progress Notes Mateo Ibarra MD - 12/21/2019 12:50 PM CDT [facility] New Patient History of Present Illness: Cinthia Wagner is a 74 y.o. female with history of a right frontal stroke, melanoma, hypertension, prediabetes, CKD, thyroid disease who presents due to concern for Parkinson disease. Past records were reviewed. She saw Dr. Rose followed by Chad Genao CNP at [facility] most recently on 03/2019. They noted a history of a right frontal stroke resulting in left hemiplegia and spasticity in 2010. For this she was getting botulinum toxin injections. However over the past year increased tone of the left side was noted as well as tremor of the arm and head. In addition she was noted to be more emotional, possibly a pseudobulbar affect. Carbidopa/levodopa was started grossman saniya she reported dizziness. And no benefit on one tab t.i.d.. It was then stopped and repeat MRI wasperformed. This revealed the old stroke but no new infarct. It appears she had botulinum toxin injections previously performed by Dr. Andrey Sam. Today she reports that after her stroke she had weakness on the left side of her body but did not really feel that stiff. She lived in [place] then moved here in about 2017. Around that time she started to feel more stiff in the left body. She felt more robotic. She noticed it mostly on the left sidebut also possibly the right leg. She started to have episodes of toe curling in the left more than right foot. She has also started to notice shuffling, difficulty rising from a chair, and micrographiain the right hand. Also noted tremor in the right hand and head. She also notes that she had a couple of episodes which seem like dream enactment. She was dreaming something then up sitting on the side of the bed and then falling out. She reports she has had some cognitive symptoms since her stroke. She reports that when she tried the levodopa previously she did notice benefit. She noted orthostasis although did wonder if it improved a little bit with time. Her main concern is pain in the left hand and left foot. Review of Systems: A complete ROS was performed. Significant symptoms were noted in HPI. Current Outpatient Medications Medication Sig ??? acetaminophen (TYLENOL) 500 MG tablet Take 1,000 mg by mouth three times a day. Maximum acetaminophen dose is 4000 mg in 24 hours ??? ALPRAZolam (XANAX) 0.25 MG tablet Take 0.125 mg by mouth two times daily as needed. ??? atorvastatin (LIPITOR) 10 MG tablet Take 10 mg by mouth daily. ??? betamethasone dipropionate (DIPROLENE) 0.05 % AUGMENTED lotion Apply topically at bedtime as needed. ??? calcium carbonate (TUMS) 500 MG chewable tablet Chew and swallow 500 mg by mouth daily. ??? carbidopa-levodopa (SINEMET) 25-100 MG tablet Take half tablet, three times daily. Increase to afull tablet, three times daily, after two weeks. ??? desipramine (NORPRAMIN) 150 MG tablet Take 150 mg by mouth every evening. ??? docusate sodium (COLACE) 100 MG capsule Take 100 mg by mouth two times daily as needed for Constipation. ??? drug not in computer Sinus Rinse Packets TID both nostrils ??? etodolac (LODINE) 300 MG capsule Take 300 mg by mouth every 8 hours. ??? levothyroxine (SYNTHROID) 50 MCG tablet Take 50 mcg by mouth daily. ??? loperamide (IMODIUM) 2 MG capsule Take 2 mg by mouth as needed for Diarrhea. ??? loratadine (CLARITIN) 10 MG tablet Take 10 mg by mouth daily as needed. ??? metoprolol tartrate (LOPRESSOR) 50 MG tablet Take 50 mg by mouth two times a day. ??? multivitamin (THERAGRAN) tablet Take 1 Tablet by mouth daily. ??? pantoprazole (PROTONIX) 20 MG tablet Take 20 mg by mouth daily. ??? polyethylene glycol (MIRALAX) 17 g packet Take by mouth daily as needed for Constipation. ??? ramipril (ALTACE) 10 MG capsule Take 10 mg by mouth two times a day. ??? senna-docusate (AKA SENOKOT-S) 8.6-50 MG tablet Take 1 Tablet by mouth daily as needed for Constipation. Past Medical History: Diagnosis Date ??? Anxiety (HRC) ??? CKD (chronic kidney disease) ??? Hyperlipemia ??? Hypertension ??? Melanoma (HRC) ??? Prediabetes ??? Stroke (HRC) R frontal, 2010 ??? Thyroid disease Past family and social history: Reviewed in EMR Exam: Orthostatic vitals (seated then standing) Vitals: 12/21/19 1309 12/21/19 1311 BP: (!) 146/80 (!) 141/69 Pulse: 70 Weight: 64.9 kg (143 lb) No acute distress Breathing comfortably No peripheral edema Neurological Examination (R/L): Mental Status: Awake, alert. Fluent. Affect tearful at times. Cranial Nerves: Visual knight intact to confrontation. Ocular versions full. No facial weakness. Mild dysarthria. No tongue fasciculations. Motor: Strength full in the right hemibody. Left hand held flexed with apparent contracture. Increased tone in the left arm and leg but also possibly slightly the right. Mild apparent bradykinesia in the right hand. Sensory: Romberg negative. Reflexes: Biceps 2/2 Triceps 2/2 Brachioradialis 2/2 Patellar 2/2 Achilles 2/2. Coordination: Finger to nose without dysmetria. Gait: Decreased stride length. Data: MR brain without contrast 04/30/2019: Moderate lateral right frontal chronic infarct with hemosiderin staining. Also noted mild/moderate microvascular changes and mild volume loss. TSH 05/19/2018: Within normal limits Assessment/Plan: 74-year-old female with a history of a right frontal stroke and left hemiplegia presents with increased sensation of stiffness in the left side of the body, tremor, difficulty rising from a chair, shuffling. She does note multiple symptoms of parkinsonism. This is difficult to evaluate for, however, in the setting of her prior stroke in left hemibody weakness and spasticity. However she did not notice the stiff sensation in her left body until years after her stroke. Thus could definitely consider a new process causing rigidity as being the cause. It appears she had some orthostasis with starting levodopa previously. Perhaps who is started to quickly. Will retry. Will start half tab t.i.d. then increase to a full tab after two weeks. If she has orthostasis instructed her to call. Will tried slowly increase the dose up to three tabs t.i.d. if nobenefit is noted. Also told her to try melatonin for her REM behavior disorder. If this is not effective will try clonazepam. If the levodopa is not effective would likely retry botulinum toxin injections. Will see her again in 2-3 months for a video visit. Note dictated using voice recognition software. Mateo Ibarra MD documented in this encounter Plan of Treatment Not on filedocumented as of this encounter Visit Diagnoses Diagnosis Parkinsonism, unspecified Parkinsonism t ype ([facility]) - Primary REM sleep behavior disorder documented in this encounter Care Teams Crystal Mounter Relationship Specialty Start Date End Date Alex Orozco MD PCP - General Family Practice 11/23/19 [address] [place] [address] documented as of this encounter
--- OUTSIDE RECORDS SUMMARY | 2022-02-09 21:16 | XMS_ITS | Encounter Summary ---
:1945 Author Organization [employer] Address [address] [place] [address] Care Team Providers Name Role Phone Alex Orozco MD Primary Care Provider Reason for Visit Reason Comments Questions Encounter Details Date Type Department Care Team Description 05/23/2020 Telephone [facility] Gely Diallo, RN Questions [address] [place], [place] [address] Social History Tobacco Use Types Packs/Day Years Used Date Smoking Tobacco: Never Assessed Sex Assigned at Date Recorded Female 10/30/2020 7:58 AM CDT documented as of this encounter Nursing Notes Gely Diallo, RN - 05/23/2020 12:49 PM CST Pt called. She states that her support stockings are too loose and that they are sitting around her ankles. She asked if it would be OK to stop wearing them. Called pt back and LM asking that she call her primary PMD to discuss. Closing encounter at this time D RETURN REPAIRER documented in this encounter Plan of Treatment Not on filedocumented as of this encounter Visit Diagnoses Not on filedocumented in this encounter Care Teams Flat Lock Operator Relationship Specialty Start Date End Date Alex Orozco MD PCP - General Family Practice 11/23/19 [address] [place] [address] documented as of this encounter
--- OUTSIDE RECORDS SUMMARY | 2022-02-09 21:16 | XMS_ITS | Encounter Summary ---
:1945 Author Organization [employer] Address [address] [place] [address] Care Team Providers Name Role Phone Alex Orozco MD Primary Care Provider Reason for Visit Reason Comments Medication Questions Encounter Details Date Type Department Care Team Description 12/24/2019 Telephone [facility] La Nena Banda, job interviewer Questions [address] [place], [place] [address] Social History Tobacco Use Types Packs/Day Years Used Date Smoking Tobacco: Never Assessed Sex Assigned at Date Recorded Female 10/30/2020 7:58 AM CDT documented as of this encounter Nursing Notes La Nena Banda RN - 12/24/2019 3:34 PM CDT Faxed order to Kassy at [facility]. Mateo Ibarra MD - 12/24/2019 1:04 PM CDT Take 3mg melatonin nightly. Rx sent. Mateo Ibarra MD La Nena Banda RN - 12/24/2019 11:50 AM CDT Kassy from [facility] called because they heard from Cinthia Ibarra was going to prescribe melatonin. They will need order sent to [facility] and then also a order from Dr. Ibarra faxed to them (FAX: [phone]) Dr. Ibarra please send order to pharmacy and write out instructions in this phone note and we can fax to facility. Thanks. documented in this encounter Plan of Treatment Not on filedocumented as of this encounter Visit Diagnoses Not on filedocumented in this encounter Care Teams Embossing Press Operator Apprentice Relationship Specialty Start Date End Date Alex Orozco MD PCP - General Family Practice 11/23/19 [address] [place] [address] documented as of this encounter
--- OUTSIDE RECORDS SUMMARY | 2022-02-09 21:16 | XMS_ITS | Encounter Summary ---
:1945 Author Organization [facility] Address [address] [place] [address] Care Team Providers Name Role Phone Alex Orozco MD Primary Care Provider Reason for Visit Reason Comments QUESTIONS, GENERAL Encounter Details Date Type Department Care Team Description 06/27/2020 Telephone [facility] Fauzia Cote, QUESTIONS, GENERAL [address] [place] [address] Social History Tobacco Use Types Packs/Day Years Used Date Smoking Tobacco: Never Assessed Sex Assigned at Date Recorded Female 10/30/2020 7:58 AM CDT documented as of this encounter Nursing Notes Fauzia Cote RN - 06/27/2020 4:22 PM CDT Left message with provider response. Instructed patient to call back if she has any additional questions or comments. Closing encounter Mateo Ibarra MD - 06/27/2020 1:44 PM CDT I have been following her for it, it happened a while ago and don't think she needs to see someone new. We can talk about that more though next time she sees me for visit. Mateo Ibarra MD Fauzia Cote RN - 06/27/2020 1:24 PM CDT Patient would like providers recommendation who she should see concerns her stroke. Specifically shewanted to know if Dr. Ibarra would see her for that or if she needs another neurologist. Dr. Ibarra - Please advise documented in this encounter Plan of Treatment Not on filedocumented as of this encounter Visit Diagnoses Not on filedocumented in this encounter Care Teams Data Warehouse Specialist Relationship Specialty Start Date End Date Alex Orozco MD PCP - General Family Practice 11/23/19 [address] [place] [address] documented as of this encounter
--- OUTSIDE RECORDS SUMMARY | 2022-02-09 21:16 | XMS_ITS | Encounter Summary ---
:1945 Author Organization [facility] Address [address] [place] [address] Care Team Providers Name Role Phone Alex Orozco MD Primary Care Provider Reason for Visit Procedure/Equipment (Routine) - Closed Specialty Diagnoses / Procedures Referred By Contact Refer red To Contact Diagnoses Tremor Mateo Ibarra MD Procedures NM DaTscan Brain Spect NM DaTscan Brain Spect [address] [place], [place] [address] Referral ID Status Reason Start Date Expiration Date Visits Requ ested Visits Authorized [id number] Closed 08/08/2020 11/07/2021 6 6 Encounter Details Date Type Department Care Team Description 09/16/2020 Ancillary Procedure [facility] Mateo Ibarra, Tremor Medicine [address] [place] [address] [address] [place] [address] [place], [place] [phone] (Wo rk) Social History Tobacco Use Types [...] Name Priority Date/Time Associated Diagnosis Comme nts NM DATSCAN BRAIN Routine 09/16/2020 1:39 PM Tremor Resul ts for this SPECT CDT procedure are i n the results section. documented in this encounter Results NM DaTscan Brain Spect (09/16/2020 1:39 PM CDT) Anatomical Region Laterality Modality Head Nuclear Medicine Specimen (Source) Anatomical Collection Method Collection Time Re ceived Time Location / / Volume Laterality 09/16/2020 1:39 PM CDT Narrative 09/16/2020 4:05 PM CDT EXAM: NM DATSCAN BRAIN SPECT LOCATION: [facility] DATE/TIME: 09/16/2020 1:39 PM INDICATION: Tremor COMPARISON: Brain MRI from 08/04/2020 is reviewed. TECHNIQUE: 4.8 mCi I-123 DaTscan, IV. 3 hour delay SPECT brain imaging. FINDINGS: Normal symmetric radiotracer u ptake in the caudate nuclei and putamina bilaterally. IMPRESSION: ?? Normal study. No findings to suggest par kinsonism. Procedure Note Denis Goodman MD - 09/16/2020Formatti ng of this note might be different from the original. EXAM: NM DATSCAN BRAIN SPECT LOCATION: [facility] DATE/TIME: 09/16/2020 1:39 PM INDICATION: Tremor COMPARISON: Brain MRI from 08/04/2020 is reviewed. TECHNIQUE: 4.8 mCi I-123 DaTscan, IV. 3 hour delay SPECT brain imaging. FINDINGS: Normal symmetric radiotracer u ptake in the caudate nuclei and putamina bilaterally. IMPRESSION: Normal study. No findings to suggest par kinsonism. Mateo Ibarra MD [facility] documented in this encounter Visit Diagnoses Diagnosis Tremor Abnormal involuntary movements documented in this encounter Administered Medications Inactive Administered Medications - up to 3 most recent administrations Medication Order MAR Action Action Date Dose Rate Site iodine strong (LUGOLS) 5 % Given 09/16/2020 10:16 AM CDT 0.8 mL solution 0.8 mL 0.8 mL, Oral, ONCE, On Tue09/16/20 at 0845, For 1 dose, 0.8 mL is equivalent to 100 mg of 5% iodide (LUGOLS) solution ioflupane I 123 injection 5 Given 09/16/2020 10:16 AM CDT 4.8 mi llicuries millicurie 5 millicurie, Intravenous, ONCE (NON-SCHEDULED), Starting on Tue09/16/20 at 1016, Until Tue09/16/20 at 1016, For 1 dose documented in this encounter Care Teams Conche Operator Relationship Specialty Start Date End Date Alex Orozco MD PCP - General Family Practice 11/23/19 [address] [place] [address] documented as of this encounter
--- OUTSIDE RECORDS SUMMARY | 2022-02-09 21:16 | XMS_ITS | Encounter Summary ---
:1945 Author Organization [facility] Address [address] [place] [address] Care Team Providers Name Role Phone Alex Orozco MD Primary Care Provider Reason for Visit Reason Comments Medication Request Encounter Details Date Type Department Care Team Description 10/07/2020 Telephone [facility] Rozina Beckett, matcher offbearer Request [address] [place], [place] [address] Social History Tobacco Use Types Packs/Day Years Used Date Smoking Tobacco: Never Smokeless Tobacco: Never Alcohol Use Standard Drinks/Week Comments Not Currently 0 (1 standard drink = 0.6 oz pure alcoho l) Sex Assigned at Date Recorded Female 10/30/2020 7:58 AM CDT documented as of this encounter Nursing Notes Rozina Beckett, RN - 10/07/2020 11:08 AM CDT Nurse called and left a message asking that the prescription for Cymbalta increasing by 20mg per week gets sent to the pharmacy. Please send to [facility] pharmacy. documented in this encounter Plan of Treatment Not on filedocumented as of this encounter Visit Diagnoses Not on filedocumented in this encounter Care Teams Transition Advisor Relationship Specialty Start Date End Date Alex Orozco MD PCP - General Family Practice 11/23/19 [address] [place] [address] documented as of this encounter
--- OUTSIDE RECORDS SUMMARY | 2022-02-09 21:16 | XMS_ITS | Encounter Summary ---
:1945 Author Organization [facility] Address [address] [place] [address] Care Team Providers Name Role Phone Alex Orozco MD Primary Care Provider Reason for Referral Procedure/Equipment (Routine) - Closed Specialty Diagnoses / Procedures Referred By Contact Refer red To Contact Diagnoses Tremor Mateo Ibarra MD Procedures NM DaTscan Brain Spect NM DaTscan Brain Spect [address] [facility] [address] [place], [place] [address] Referral ID Status Reason Start Date Expiration Date Visits Requ ested Visits Authorized [id number] Closed 08/08/2020 11/07/2021 6 6 Reason for Visit Reason Comments Follow-up Encounter Details Date Type Department Care Team Description 08/08/2020 Telemedicine [facility] Mateo Ibarra, Parkinsonism, unspecified Pa rkinsonism type (HRC) (Primary Dx); [address] pain; Drive [address] [facility] Tremor; [place], [place] S Spasticity [address] [place], [place] [phone] (Wo rk) Social History Tobacco Use Types Packs/Day Years Used Date Smoking Tobacco: Never Smokeless Tobacco: Never Alcohol Use Standard Drinks/Week Comments Not Currently 0 (1 standard drink = 0.6 oz pure alcoho l) Sex Assigned at Date Recorded Female 10/30/2020 7:58 AM CDT documented as of this encounter Last Filed Vital Signs Vital Sign Reading Time Taken Comments Blood Pressure 118/61 08/08/2020 2:06 PM CDT Pulse - - Temperature - - Respiratory Rate - - Oxygen Saturation - - Inhaled Oxygen Concentration - - Weight 59 kg (130 lb) 08/08/2020 2:06 PM CDT Height - - Body Mass Index - - documented in this encounter Patient Instructions Patient InstructionsMateo Ibarra MD - 08/08/2020 1:50 PM CDT Increase the pregabalin dose to 50mg BID. Please note the number that your provider called from is a non-working number for return calls. Please contact us using TheraVid or by calling the [facility] nurse line at [phone]. To set up your next appointment, please call the [facility] scheduling line at [phone]. Two easy ways to stay connected with what is going on at [facility]: 1. If you have not already done so, we encourage you to sign up (for free) to be on our e-mailing list, so that you will receive information about upcoming classes, events, and activities hosted by [facility]! To sign up, simply send an email to [email or web address] indicating that you would like to be included. 2. Follow us on Facebook to learn more about current news and upcoming events. Find us at [facility]! documented in this encounter Progress Notes Mateo Ibarra MD - 08/08/2020 1:50 PM CDT [facility] Video Follow-up Note History of Present Illness: Cinthia Wagner is a 74 y.o. female with history of right frontal stroke??(likely hemorrhage),??melanoma, hypertension, pre diabetes, CKD, thyroid disease who presents in follow-up for possible Parkinson disease. ??She has a history of left hemiplegia following stroke in 2010. H owever starting in she developed increasing stiffness on the left side as well as micrographia, right hand and head tremor and toe curling in the feet as well as shuffling. [place] to possibly have a parkinsonian disorder given symptoms however did not respond to up to 3 tabs TID of carbidopa/levodopa 25/100. She has also seen by Psychiatry and establishing with Psychology. She underwent initial botulinum toxin injections on 07/21/2020. She reports that she is able to open and close her hand a little bit more but overall there is no significant benefit. In the past week she has started to develop severe burning pain, pain to touch of the skin on the left side of the body.Reports it started in the left arm and then spread to the left leg. Does not involve the face. She reports that the symptoms started prior to getting her MRI of the brain and cervical spine. Was able to review these results in Care everywhere without any significant new abnormalities found. She was started on pregabalin two days ago which helps somewhat but wears off. She denies side effects. No imbalance. Exam: Mental Status: Awake, alert. Moderate distress. Assessment/Plan: 74-year-old female with left hemiplegia status post right frontal stroke and possible additional parkinsonism presents in follow-up. Unclear what this new pain is secondary to. Reassuring that the MRIs were performed and without new concerning findings. Agree with starting a medication like pregabalin. She is still in a lot of pain and without side effects thus will increase the dosetoday to 50 mg b.i.d.. With regards to her overall presentation he remains unclear whether she has a parkinsonian syndrome on top of her old deficits due to stroke. Will order a shanique scan to look into this further. For her next botulinum toxin injections will increase the dose significantly. We have a prior Auth in place. Physician / patient located at: clinic / home Note dictated using voice recognition software. Mateo Ibarra MD documented in this encounter Plan of Treatment Not on filedocumented as of this encounter Results NM DaTscan Brain Spect [...] to suggest par kinsonism. Mateo Ibarra MD RAD [place] documented in this encounter Visit Diagnoses Diagnosis Parkinsonism, unspecified Parkinsonism t ype ([facility]) - Primary Neuropathic pain Neuralgia, neuritis, and radiculitis, un specified Tremor Abnormal involuntary movements Spasticity Abnormal involuntary movements Tremor Abnormal involuntary movements documented in this encounter Care Teams Food Consultant Relationship Specialty Start Date End Date Alex Orozco MD PCP - General Family Practice 11/23/19 [address] [place] [address] documented as of this encounter
--- OUTSIDE RECORDS SUMMARY | 2022-02-09 21:16 | XMS_ITS | Encounter Summary ---
:1945 Author Organization [employer] Address [address] [place] [address] Care Team Providers Name Role Phone Alex Orozco MD Primary Care Provider Reason for Visit Reason Comments Social Service Encounter Details Date Type Department Care Team Description 03/27/2020 Telephone [facility] Brianne Reeves LISW Social Service [address] [place], [place] [address] Social History Tobacco Use Types Packs/Day Years Used Date Smoking Tobacco: Never Assessed Sex Assigned at Date Recorded Female 10/30/2020 7:58 AM CDT documented as of this encounter Nursing Notes Brianne Grande LISW - 03/27/2020 10:49 AM CST Call to pt at the request of Dr Mateo Ibarra. Pt had a video visit with Dr Ibarra. She had questions about transportation to the clinic in [place]. Pt resides in an assisted living in [place]. She states that her sister, who also lives in [place], is cautious about travel to the clinic due to the virus. So pt is seeking alternate transport. DIANNA discussed that the typical coverage for transportation by Medicare and many supplements is non-existent. Pt has already talked to a company in [place] about private pay transport, it would cost roughly $300 round trip. DIANNA can provide another resource to possibly find other companies, though theywill probably give similar quotes. DIANNA mentioned that Dr Ibarra does go to the [facility] clinic,which would be closer. Pt is potentially going to be receiving botox, which is currently only available at the [facility]. SW provided encouragement that with more vaccines being made available, perhaps her sister would feel more comfortable driving in the future. It is unsure when pt is set to return to the clinic. She will discuss with her sister about going to [place] or wait until her sister is more comfortable driving to [place]. R MEAT documented in this encounter Plan of Treatment Not on filedocumented as of this encounter Visit Diagnoses Not on filedocumented in this encounter Care Teams Shellfish Checker Relationship Specialty Start Date End Date Alex Orozco MD PCP - General Family Practice 11/23/19 [address] [place] [address] documented as of this encounter
--- OUTSIDE RECORDS SUMMARY | 2022-02-09 21:16 | XMS_ITS | Encounter Summary ---
:1945 Author Organization [facility] Address [address] [address] Care Team Providers Name Role Phone Alex Orozco MD Primary Care Provider Reason for Visit Reason Comments Test Results Encounter Details Date Type Department Care Team Description 05/22/2020 Telephone [facility] Fauzia Cote, RN Test Results [address] [place], [place] [address] Social History Tobacco Use Types Packs/Day Years Used Date Smoking Tobacco: Never Assessed Sex Assigned at Date Recorded Female 10/30/2020 7:58 AM CDT documented as of this encounter Nursing Notes Ricardo Izaguirre RN - 05/22/2020 3:45 PM CST Sent faxed request to imaging to request both images to be pushed into our system. RCEPTOR OPERATOR Fauzia Cote RN - 05/22/2020 2:52 PM CST Attempting to recover MRI imaging per provider request. #1 MRI Brain W/O contrast 11/11/2016 [facility]. Report received. They are mailing disk to [facility] directly for provider to review. #2 MRI Head Brain WO 04/30/2019 [facility]. Requested x3 (phone and fax) for records. No response. At upcomingpatient appointment will have BLANCHE signed. Dr. Ibarra - Please confirm if you have received imaging for either of these dates. Thanks RCEPTOR OPERATOR documented in this encounter Plan of Treatment Not on filedocumented as of this encounter Visit Diagnoses Not on filedocumented in this encounter Care Teams Public Health Physician Relationship Specialty Start Date End Date Alex Orozco MD PCP - General Family Practice 11/23/19 [address] [place] [address] documented as of this encounter
--- OUTSIDE RECORDS SUMMARY | 2022-02-09 21:16 | XMS_ITS | Encounter Summary ---
:1945 Author Organization [facility] Address [address] [address] Care Team Providers Name Role Phone Alex Orozco MD Primary Care Provider Reason for Visit Reason Comments Spasms 3am Encounter Details Date Type Department Care Team Description 07/25/2020 Telephone [facility] Fauzia Cote, Spasms (3am ) [address] [place] [address] Social History Tobacco Use Types Packs/Day Years Used Date Smoking Tobacco: Never Smokeless Tobacco: Never Alcohol Use Standard Drinks/Week Comments Not Currently 0 (1 standard drink = 0.6 oz pure alcoho l) Sex Assigned at Date Recorded Female 10/30/2020 7:58 AM CDT documented as of this encounter Nursing Notes Fauzia Cote, RN - 07/30/2020 5:06 PM CDT Faxed closing encounter Fauzia Cote RN - 07/29/2020 11:40 AM CDT Updated patient with provider response. Left message for facility nursing to call back for verbal order; otherwise a signed order will be faxed to them when provider is next in clinic (07/30/20). Patientwould like to see how baclofen works before setting up an appointment with provider. Dr. Ibarra- Order placed in folder. Mateo Ibarra MD - 07/29/2020 9:47 AM CDT Yes, OK to try baclofen without spasm. If she feels it helps, and no side effects, we can consider increased dose frequency in future. I would set up appointment at [facility], it will be harder to get into [id number]. Mateo Ibarra MD Fauzia Cote RN - 07/29/2020 9:00 AM CDT Spoke with patient who states she has only had 1 spasm since the Botox injection (the one reported earlier in this message). However, she reports being completely rigid and in so much pain. Patientrequests she can try the baclofen without having a spasm to see if it improves rigidity. Patient was tearful throughout the call. She has a massage planned today to reduce rigidity. Discussed stressorson body both physical and emotional. Patient would like to know if a visit can be setup to discuss these concerns. Nursing - Update facility and patient with any changes Dr. Ibarra - Please advise. 1. Baclofen use 2. Appointment - here or [id number]? IT Fauzia Cote RN - 07/28/2020 10:59 AM CDT Attempted to call back patient. She was not available to discuss response. Patient states she will call back into nurse line. Nursing - Attempt to call patient this afternoon. Mateo Ibarra MD - 07/25/2020 4:12 PM CDT I wrote for baclofen. Would ideally limit use so we can get a better idea of how injections are affecting her. Mateo Ibarra MD IT Fauzia Cote RN - 07/25/2020 2:47 PM CDT Patient reports last night she had a spasm in her left arm and leg that woke her up at 3am. She described the spasm as the muscles going completely rigid. She is requesting an as needed medication tohelp if this occurs again. Left message asking her to call back to discuss and confirm pharmacy. It was not clear if this was a one time occurrence or an ongoing pattern. Dr. Ibarra - Please advise. documented in this encounter Plan of Treatment Not on filedocumented as of this encounter Visit Diagnoses Not on filedocumented in this encounter Care Teams Bottling Line Attendant Relationship Specialty Start Date End Date Alex Orozco MD PCP - General Family Practice 11/23/19 [address] [place] [address] documented as of this encounter
--- OUTSIDE RECORDS SUMMARY | 2022-02-09 21:16 | XMS_ITS | Encounter Summary ---
:1945 Author Organization [facility] Address [address] [place] [address] Care Team Providers Name Role Phone Alex Orozco MD Primary Care Provider Reason for Visit Reason Comments QUESTIONS, GENERAL Encounter Details Date Type Department Care Team Description 06/30/2020 Telephone [facility] Rozina Beckett, RN QUESTIONS, GENERAL [address] [place], [place] [address] Social History Tobacco Use Types Packs/Day Years Used Date Smoking Tobacco: Never Assessed Sex Assigned at Date Recorded Female 10/30/2020 7:58 AM CDT documented as of this encounter Nursing Notes Ricardo Izaguirre RN - 07/03/2020 2:20 PM CDT vm left for the pt that approval is for 200 units of botox. Fred had originally requested 100 units. Advised that we start off slow to reduce any adverse side effects. Approval for the botox 200 units every 3 months for 5 visits. Approval from 04/28/20 - 08/12/21 Rozina Beckett RN - 07/03/2020 1:57 PM CDT Patient called again twice today asking about the Botox injections she is scheduled for and if she can maybe get it on her other side too. I left her a message that she will need to speak to Dr. Ibarra at the time of appointment as it appears there is an amount and number of injections approved and he is out of the office. Rozina Beckett RN - 06/30/2020 11:29 AM CDT FYI only- See previous phone note. Patient called she said that her primary care doctor doesn't think her anxiety medication is causingher rigidity and so she is wondering about stopping that and starting something else. I told her that Dr. Cervantes had communicated last week with the PA. There was no recommendation of stopping her anxiety medication and in fact stated the clonazepam could help. She didn't have any idea what I was talking about when I mentioned Dr. Cervantes's comment about TMJ. Explained Dr. Ibarra is on leave. She has an appointment over at neurology clinic in a few weeks for Botox. documented in this encounter Plan of Treatment Not on filedocumented as of this encounter Visit Diagnoses Not on filedocumented in this encounter Care Teams Street Cleaner Relationship Specialty Start Date End Date Alex Orozco MD PCP - General Family Practice 11/23/19 [address] [place] [address] documented as of this encounter
--- OUTSIDE RECORDS SUMMARY | 2022-02-09 21:16 | XMS_ITS | Encounter Summary ---
:1945 Author Organization [facility] Address [address] [place] [address] Care Team Providers Name Role Phone Alex Orozco MD Primary Care Provider Reason for Visit Reason Comments FYI Encounter Details Date Type Department Care Team Description 12/24/2019 Telephone [facility] La Nena Banda, RN FYI [address] [place], [place] [address] Social History Tobacco Use Types Packs/Day Years Used Date Smoking Tobacco: Never Assessed Sex Assigned at Date Recorded Female 10/30/2020 7:58 AM CDT documented as of this encounter Nursing Notes La Nena Banda, RN - 12/24/2019 3:42 PM CDT Cinthia called and LM wanting to let Dr. Ibarra know she had a right intracerebral hemorrhage. She states he wanted her to call in with this information. FYI only. documented in this encounter Plan of Treatment Not on filedocumented as of this encounter Visit Diagnoses Not on filedocumented in this encounter Care Teams Transit Manager Relationship Specialty Start Date End Date Alex Orozco MD PCP - General Family Practice 11/23/19 [address] [place] [address] documented as of this encounter
--- OUTSIDE RECORDS SUMMARY | 2022-02-09 21:16 | XMS_ITS | Encounter Summary ---
:1945 Author Organization [facility] Address [address] [place] [address] Care Team Providers Name Role Phone Alex Orozco MD Primary Care Provider Reason for Visit Reason Comments Medication Side Effects Encounter Details Date Type Department Care Team Description 01/22/2020 Telephone [facility] Rozina Beckett turbine operator Side Effects [address] [place], [place] [address] Social History Tobacco Use Types Packs/Day Years Used Date Smoking Tobacco: Never Assessed Sex Assigned at Date Recorded Female 10/30/2020 7:58 AM CDT documented as of this encounter Nursing Notes Rozina Beckett RN - 01/22/2020 2:13 PM CDT Patient is calling now. She states she didn't know that the nurse had already spoken to me. I assured her I had checked with the doctor too and he agreed. Mateo Ibarra MD - 01/22/2020 12:19 PM CDT Thanks. Agreed. Mateo Ibarra MD Rozina Beckett RN - 01/22/2020 9:35 AM CDT Nurse called, she said that patient had one day where she had diarrhea. No cramps, no nausea no fever but the patient is convinced the levodopa is causing this and said that every time she wipes after urination she has a little diarrhea on the toilet paper so yesterday she refused to take it. I told her that it is very unlikely to be from levodopa. She should check to see if its possible she may have an impaction and is leaking stool around it andto check with primary care doctor. They do think it has helped her so will encourage and reassure her. documented in this encounter Plan of Treatment Not on filedocumented as of this encounter Visit Diagnoses Not on filedocumented in this encounter Care Teams Frame Stylist Relationship Specialty Start Date End Date Alex Orozco MD PCP - General Family Practice 11/23/19 [address] [place] [address] documented as of this encounter
--- OUTSIDE RECORDS SUMMARY | 2022-02-09 21:16 | XMS_ITS | Encounter Summary ---
:1945 Author Organization [facility] Address [address], [place] [address] Care Team Providers Name Role Phone Alex Orozco MD Primary Care Provider Reason for Visit Reason Comments Prior Authorization Request Encounter Details Date Type Department Care Team Description 04/25/2020 Telephone [facility] [address] Authorization Neurology Ricardo Montague RN Request [address] [place], [place] [id number] Social History Tobacco Use Types Packs/Day Years Used Date Smoking Tobacco: Never Assessed Sex Assigned at Date Recorded Female 10/30/2020 7:58 AM CDT documented as of this encounter Nursing Notes Ricardo Izaguirre RN - 05/22/2020 11:24 AM CST Any questions re: approval number is [id number] AURANT SHIFT SUPERVISOR Ricardo Izaguirre RN - 05/22/2020 9:36 AM CST Approval for the botox 200 units every 3 months for 5 visits. Approval from 04/28/20 - 08/12/21 AURANT SHIFT SUPERVISOR Ricardo Izaguirre RN - 05/09/2020 9:59 AM CST Appeal letter and clinical research faxed to appeals line. AURANT SHIFT SUPERVISOR Mateo Ibarra MD - 05/09/2020 9:30 AM CST Routed you letter AURANT SHIFT SUPERVISOR Ricardo Izaguirre RN - 05/09/2020 9:02 AM CST Received a denial for the botox. [facility] requesting a physicain letter why pt needs the botox injections Ref # [id number] Need a fast appeal as pt is scheduled for 06/02. AURANT SHIFT SUPERVISOR Ricardo Izaguirre RN - 04/28/2020 1:43 PM CST PA initiated to [facility] for the botox. Clinicals were faxed to [phone]. Awaiting determination. Case # [id number] AURANT SHIFT SUPERVISOR Ricardo Izaguirer RN - 04/25/2020 3:34 PM CST ----- Message from Mateo Ibarra MD sent at 04/25/2020 11:04 AM RESTAURANT SHIFT SUPERVISOR ----- Regarding: botox Could you help set up Botox injections, indication: left sided spasticity. We can start with 100U for first dose. I think a combo platter visit is a good idea. We thought it best if you talk to her nurse Kassy to help set up. Thanks a lot Mateo Ibarra MD AURANT SHIFT SUPERVISOR documented in this encounter Plan of Treatment Not on filedocumented as of this encounter Visit Diagnoses Not on filedocumented in this encounter Care Teams Water Resource Manager Relationship Specialty Start Date End Date Alex Orozco MD PCP - General Family Practice 11/23/19 [address] [place] [address] documented as of this encounter
--- OUTSIDE RECORDS SUMMARY | 2022-02-09 21:16 | XMS_ITS | Encounter Summary ---
:1945 Author Organization [facility] Address [address] [place] [address] Care Team Providers Name Role Phone Alex Orozco MD Primary Care Provider Encounter Details Date Type Department Care Team Description 06/03/2020 Orders Only Initial [facility] ONEL ROG[facility] MD [place], [place] [address] Interface provider [phone] [place] [address] Social History Tobacco Use Types Packs/Day Years [...] on filedocumented in this encounter Care Teams Furnace Helper Relationship Specialty Start Date End Date Alex Orozco MD PCP - General Family Practice 11/23/[address] [place] [address] documented as of this encounter
--- OUTSIDE RECORDS SUMMARY | 2022-02-09 21:16 | XMS_ITS | Encounter Summary ---
:1945 Author Organization [facility] Address [address] [place] [address] Care Team Providers Name Role Phone Alex Orozco MD Primary Care Provider Reason for Visit Reason Comments Orders Needed Encounter Details Date Type Department Care Team Description 10/06/2020 Telephone [facility] Rozina Beckett, RN Orders Needed [address] [place], [place] [address] Social History Tobacco Use Types Packs/Day Years Used Date Smoking Tobacco: Never Smokeless Tobacco: Never Alcohol Use Standard Drinks/Week Comments Not Currently 0 (1 standard drink = 0.6 oz pure alcoho l) Sex Assigned at Date Recorded Female 10/30/2020 7:58 AM CDT documented as of this encounter Nursing Notes Rozina Beckett, RN - 10/06/2020 11:33 AM CDT Nurse called, states that a prescription needs to be sent to [facility] pharmacy for reduced Lyrica dosage. Please sign and discontinue previous order. documented in this encounter Plan of Treatment Not on filedocumented as of this encounter Visit Diagnoses Not on filedocumented in this encounter Care Teams Broaching Machine Repairer Relationship Specialty Start Date End Date Alex Orozco MD PCP - General Family Practice 11/23/[address] [place] [address] documented as of this encounter
--- OUTSIDE RECORDS SUMMARY | 2022-02-09 21:16 | XMS_ITS | Encounter Summary ---
:1945 Author Organization [facility] Address [address] [place] [address] Care Team Providers Name Role Phone Alex Orozco MD Primary Care Provider Reason for Referral Consult/Transfer Care (Routine) - Incomplete Specialty Diagnoses / Procedures Referred By Contact Refer red To Contact Diagnoses Neuropathic pain Spasticity Mateo Ibarra MD [address] [place], [place] [address] Referral ID Status Reason Start Date Expiration Date Visits V isits Requested Authorized [id number] Incomplete 09/19/2020 12/19/2021 1 1 Scheduling Instructions Your provider has recommended an appoint ment with Behavioral Health. You may call [phone] to schedule your appointmen t. This recommended service/s may not be covered by your health plan (health insu mikey). To find out your specific benefit coverage, please call the number on your insurance card.?? Please note that in order to maintain access for all patients, [facility] does have a late cancellation policy. In order to avoid being restrict ed from scheduling future appointments in Behavioral Health you will need to cance l at least 24 hours in advance. We request you that you arrive 30 minutes before yo ur first appointment to complete paperwork. Reason for Visit Reason Comments Follow-up questioning if she has PD or not Balance/gait Dysfunction walking slow Medication Questions Giorgi makes her sleepy Encounter Details Date Type Department Care Team Description 09/19/2020 Telemedicine [facility] Fred, Mateo M, Neuropathic pain (Primary Dx ); [address] [facility] [place] [place] [address] [place], [place] [phone] (Wo rk) Social History Tobacco Use Types Packs/Day Years Used Date Smoking Tobacco: Never Smokeless Tobacco: Never Alcohol Use Standard Drinks/Week Comments Not Currently 0 (1 standard drink = 0.6 oz pure alcoho l) Sex Assigned at Date Recorded Female 10/30/2020 7:58 AM CDT documented as of this encounter Patient Instructions Patient InstructionsElizabeth Guadarrama RN - 09/19/2020 12:50 PM CDT Please contact us using [facility] or by calling the [facility] nurse line at [phone]. Two easy ways to stay connected with what is going on at [facility]: 1. If you have not already done so, we encourage you to sign up (for free) to be on our e-mailing list, so that you will receive information about upcoming classes, events, and activities hosted by [facility]! To sign up, simply send an email to [email or web address] website indicating that you would like to be included. 2. Follow us on Facebook to learn more about current news and upcoming events. Find us at [facility]! documented in this encounter Progress Notes Mateo Ibarra MD - 09/19/2020 12:50 PM CDT [facility] Video Follow-up Note History of Present Illness: Cinthia Wagner is a 74 y.o. female with history of right frontal stroke??(likely hemorrhage),??melanoma, hypertension, pre diabetes, CKD, thyroid disease who presents in follow-up for her stiffness, pain. ??She has a history of left hemiplegia following stroke in 2010. However starting in she developed increasing stiffness on the left side as well as micrographia, right hand and head tremor and toe curling in the feet as well as shuffling. [place] to possibly have a parkinsonian disorder given symptoms however did not respond to up to 3 tabs TID of carbidopa//100 and a LORIN was negative. She has also seen by Psychiatry and Psychology. She presents today having had her lorin scan performed. This was negative. She reports severe burning pain in the left arm and leg. The Lyrica helps but she reports she is getting very tired and sleepy. Reports that it wears off around 5:00 p.m.. Also reports severe rigidity/stiffness in the left side of the body. Left arm pulls into her body. Exam: Mental Status: Tearful Gait: Hemiplegic gait with short strides Assessment/Plan: 74-year-old female with left hemiplegia status post right frontal stroke who presents in follow-up. Had initially felt she possibly was developing Parkinson disease on top of her left spasticity secondary to prior stroke. However she did not respond to levodopa and in addition a lorin scan was negative thus do not feel Parkinson disease is present. Her left body pain and spasticity could all be secondary to her prior hemorrhage. She notes worsening gait, I am not sure exactly what is causing this aspect of her symptoms. Will see if she can start Cymbalta. She is going to run this by her psychiatrist. If that helps her pain we can try and get her off Lyrica which she reports is making her too sleepy. Will attempt changing her injections at next Botox visit. Focus more on the shoulder abductors as this seems to be where a lot of her symptoms are. Will also place referral for Pain Psychology. She is going to be checking on whether she is actually taking the tizanidine and if it has been helpful. Future considerations could be getting an opinion from physiatry or pain clinic. Total time greater than 30 minutes Physician / patient located at: clinic / home Note dictated using voice recognition software. Mateo Ibarra MD documented in this encounter Plan of Treatment Scheduled Referrals Name Type Priority Associated Diagnoses [facility] Referral Routine Neuropathic pa in Ordered: 09/19/2020 Adult/Peds Spasticity documented as of this encounter Visit Diagnoses Diagnosis Neuropathic pain - Primary Neuralgia, neuritis, and radiculitis, un specified Spasticity Abnormal involuntary movements documented in this encounter Care Teams Pillow Cleaner Relationship Specialty Start Date End Date Alex Orozco MD PCP - General Family Practice 11/23/19 [address] [place] [address] documented as of this encounter
--- OUTSIDE RECORDS SUMMARY | 2022-02-09 21:16 | XMS_ITS | Encounter Summary ---
:1945 Author Organization [email or web address] Address [address] [place] [address] Care Team Providers Name Role Phone Alex Orozco MD Primary Care Provider Reason for Visit Procedure/Equipment (Routine) - Closed Specialty Diagnoses / Procedures Referred By Contact Refer red To Contact Diagnoses Tremor Mateo Ibarra MD Procedures NM [facility]scan Brain Spect NM [facility] Spect [address] [place], [place] [address] Referral ID Status Reason Start Date Expiration Date Visits Requ ested Visits Authorized [id number] Closed 08/08/2020 11/07/2021 6 6 Encounter Details Date Type Department Care Team Description 09/16/2020 Ancillary Procedure [facility] Mateo Ibarra, Medicine MD [address] [place] [address] [address] [place] [address] [place], [place] [phone] (Wo rk) Social History Tobacco Use Types [...] suggest par kinsonism. Mateo Ibarra MD RAD NM documented in this encounter Visit Diagnoses Not on filedocumented in this encounter Care Teams Mysql Database Administrator Relationship Specialty Start Date End Date Alex Orozco MD PCP - General Family Practice 11/23/19 [address] [place] [address] documented as of this encounter
--- OUTSIDE RECORDS SUMMARY | 2022-02-09 21:16 | XMS_ITS | Encounter Summary ---
:1945 Author Organization [facility] Address [address] [place] [address] Care Team Providers Name Role Phone Unavailable Primary Care Provider Unavailable Reason for Visit (Routine) - Incomplete Specialty Diagnoses / Procedures Referred By Contact Refer red To Contact Procedures Provider, Foreign Images Foreign Image(s) MR [address] Head/[place] [address] Referral ID Status Reason Start Date Expiration Date Visits V isits Requested Authorized [id number] Incomplete 05/23/2020 08/22/2021 1 1 Encounter Details Date Type Department Care Team Description 04/30/2019 Ancillary Procedure [facility] PACS Provider, Foreign [address] [place] [address] [address] [place] [address] Social History Tobacco Use Types Packs/Day Years Used Date Smoking Tobacco: Never Assessed Sex Assigned at Date Recorded Female 10/30/2020 7:58 AM CDT documented as of this encounter Plan of Treatment Not on filedocumented as of this encounter Procedures Procedure Name Priority Date/Time Associated Diagnosis Comme nts FOREIGN IMAGE(S) MR Routine 04/30/2019 8:40 AM Re sults for this HEAD/BRAIN WO IV BASEBALL PLAYER procedure a re in CONT the results section. documented in this encounter Results Foreign Image(s) MR Head/Brain WO IV Cont (04/30/2019 8:40 AM BASEBALL PLAYER) Specimen (Source) Anatomical Location Collection Method / Collectio n Time Received Time / Laterality Volume Narrative POCT - 05/23/2020 8:40 AM BASEBALL PLAYER These outside images have been uploaded into PACS. If the results were provided, they will be located in the pa eduarda's chart under the Media or Imaging tab. Foreign Images Provider RAD NON-REPORTABLES Performing Organization Address City/State/ZIP Code Phon e Number POCT documented in this encounter Visit Diagnoses Not on filedocumented in this encounter
--- OUTSIDE RECORDS SUMMARY | 2022-02-09 21:16 | XMS_ITS | Encounter Summary ---
:1945 Author Organization [facility] Address [address] [place] [address] Care Team Providers Name Role Phone Alex Orozco MD Primary Care Provider Reason for Visit Reason Comments BOTOX INJECTION Encounter Details Date Type Department Care Team Description 07/22/2020 Telephone [place] [facility] Rozina Beckett, RN BOTOX INJECTION [address] [place] [address] Social History Tobacco Use Types Packs/Day Years Used Date Smoking Tobacco: Never Smokeless Tobacco: Never Alcohol Use Standard Drinks/Week Comments Not Currently 0 (1 standard drink = 0.6 oz pure alcoho l) Sex Assigned at Date Recorded Female 10/30/2020 7:58 AM CDT documented as of this encounter Nursing Notes Mateo Ibarra MD - 07/22/2020 1:22 PM CDT Agree thanks. She is supposed to call if she doesn't notice benefit after at least a month and we can consider baclofen if that is the case. Mateo Ibarra MD Rozina Beckett RN - 07/22/2020 1:15 PM CDT Patient left message at [facility] that she had her botox done yesterday and it hasn't helped at all. Attempted call back, left message that we wouldn't expect to see results in that short of time, she needs to wait 10-14 days before knowing. If she has questions about procedure she is to call neurology clinic, number provided. documented in this encounter Plan of Treatment Not on filedocumented as of this encounter Visit Diagnoses Not on filedocumented in this encounter Care Teams Hospital Staff Pharmacist Relationship Specialty Start Date End Date Alex Orozco MD PCP - General Family Practice 11/23/19 [address] [place] [address] documented as of this encounter
--- OUTSIDE RECORDS SUMMARY | 2022-02-09 21:16 | XMS_ITS | Encounter Summary ---
:1945 Author Organization [facility] Address [address] [place] [address] Care Team Providers Name Role Phone Alex Orozco MD Primary Care Provider Reason for Visit Reason Comments Pain Encounter Details Date Type Department Care Team Description 08/12/2020 Telephone [place] Rozina Ramos RN Pain [address] [place] [address] Social History Tobacco Use Types Packs/Day Years Used Date Smoking Tobacco: Never Smokeless Tobacco: Never Alcohol Use Standard Drinks/Week Comments Not Currently 0 (1 standard drink = 0.6 oz pure alcoho l) Sex Assigned at Date Recorded Female 10/30/2020 7:58 AM CDT documented as of this encounter Progress Notes Mateo Jimenez MD - 08/20/2020 12:25 PM CDT Addended by: MATEO JIMENEZ on: 08/20/2020 12:25 PM Modules accepted: Orders Jean Fajardo RN - 08/20/2020 10:18 AM CDT Addended by: JEAN FAJARDO on: 08/20/2020 10:18 AM Modules accepted: Orders documented in this encounter Nursing Notes Jean Fajardo RN - 08/20/2020 10:17 AM CDT Received a call from the patient facility. They are requesting an order with the Lyrica increase be sent directly to pharmacy on file. Dr. Jimenez - Please advise. Jean Fajardo RN - 08/18/2020 12:49 PM CDT Spoke with patient and facility nurse. The order has been received and sent to the pharmacy. No additional questions at this time. Closing encounter. Mateo Jimenez MD - 08/15/2020 4:22 PM CDT Done Jean Fajardo RN - 08/15/2020 3:07 PM CDT Spoke with patient. She would like to try the increase in Lyrica now. She thinks the sleepiness may be related to a procedures she recently had not the medication. Dr. Jimenez - Please sign order for facility and in Epic. Pharmacy on file confirmed as correct. Jean Fajardo RN - 08/14/2020 4:03 PM CDT Left message asking patient to call back to discuss. Awaiting call back Mateo Jimenez MD - 08/14/2020 12:56 PM CDT Sleepiness could be a side effect and could get worse with dose increase. If she feels pain is much worse than sleepiness we can increase now, otherwise maybe wait until after the weekend to see if she gets used to it more. Mateo Jimenez MD Jean Fajardo RN - 08/14/2020 11:42 AM CDT Spoke with patient. She states she does not notice any side effect when starting medication. On 08/12/2020 she has noticed increased sleepiness, but is uncertain it is related to medication. If the provider believes it is not related to Lyrica then patient agrees to try increase. Facility will request an order go to the pharmacy and a signed order be faxed for their records. Nursing - Fax signed order to [phone] Dr. Jimenez - Please advise/ Send order Rozina Beckett RN - 08/14/2020 9:10 AM CDT Attempted call back to patient, left a voicemail to return call with a good time to reach her. Mateo Jimenez MD - 08/12/2020 4:16 PM CDT If there are no side effects from the Lyrica we can increase the dose to 75mg BID. Mateo Jimenez MD Rozina Beckett RN - 08/12/2020 2:58 PM CDT Patient left a message that she is in a lot of pain, not only on her hand but also on her side. States in message that the medication is helping some but not great and she knows she can't have another Botox injection for several months so she wonders what else to do? documented in this encounter Plan of Treatment Not on filedocumented as of this encounter Visit Diagnoses Not on filedocumented in this encounter Care Teams Pc Support Specialist Relationship Specialty Start Date End Date Alex Orozco MD PCP - General Family Practice 11/23/19 [place] [address] documented as of this encounter
--- OUTSIDE RECORDS SUMMARY | 2022-02-09 21:16 | XMS_ITS | Encounter Summary ---
:1945 Author Organization [facility] Address [address] [place] [address] Care Team Providers Name Role Phone Alex Orozco MD Primary Care Provider Reason for Visit Reason Comments Orders Needed Encounter Details Date Type Department Care Team Description 03/26/2020 Telephone [place] [facility] Fauzia Cote, Orders Needed [address] [place], [place] [address] Social History Tobacco Use Types Packs/Day Years Used Date Smoking Tobacco: Never Assessed Sex Assigned at Date Recorded Female 10/30/2020 7:58 AM CDT documented as of this encounter Nursing Notes Gely Diallo RN - 03/26/2020 3:39 PM CST Copy of order sent to Nimisha at [facility] via fax. Original sent to pharmacy. Closing encounter. ICATION PENETRATION TESTER Gely Diallo RN - 03/26/2020 3:04 PM CST Mary called. for Mary with clarification of order. Dr. Ibarra - please sign for pended order if you agree, thanks! Fauzia Garcia RN - 03/26/2020 2:16 PM CST Patient was seen in clinic today. Per the visit notes the C/L was increased. Facility is requesting an order be sent to pharmacy on file with the increase/change. They are unable to administer without order. Will forward to the provider for review. Dr. Ibarra - Please approve as you see fit. ICATION PENETRATION TESTER documented in this encounter Plan of Treatment Not on filedocumented as of this encounter Visit Diagnoses Not on filedocumented in this encounter Care Teams Customs Appraiser Relationship Specialty Start Date End Date Alex Orozco MD PCP - General Family Practice 11/23/19 [address] [place] [address] documented as of this encounter
--- OUTSIDE RECORDS SUMMARY | 2022-02-09 21:16 | XMS_ITS | Encounter Summary ---
:1945 Author Organization [facility] Address [address] [place] [address] Care Team Providers Name Role Phone Alex Orozco MD Primary Care Provider Reason for Visit Reason Comments Pain Encounter Details Date Type Department Care Team Description 08/04/2020 Telephone [place] [facility] Rozina Beckett RN Pain [address] [place] [address] Social History Tobacco Use Types Packs/Day Years Used Date Smoking Tobacco: Never Smokeless Tobacco: Never Alcohol Use Standard Drinks/Week Comments Not Currently 0 (1 standard drink = 0.6 oz pure alcoho l) Sex Assigned at Date Recorded Female 10/30/2020 7:58 AM CDT documented as of this encounter Nursing Notes Rozina Beckett, RN - 08/05/2020 1:52 PM CDT I spoke to Dr. Ibarra, he was able to view MRI on Care Everywhere and states no major changes. I called her back and left a message that these were viewed. Again advised that if symptoms are severe and abrupt she should go to ER, if she chooses not to do that and instead wait and see PCP tomorrow and Dr. Ibarra on Tuesday that is her choice but not advised. Rozina Beckett RN - 08/05/2020 12:16 PM CDT Call back to Cinthia, she states she had the MRI done at [facility], she got the results yesterday but doesn't understand them. Asked that she have them sent to Dr. Ibarra. I told her she should be seen in ER or at her PCP today, she said she didn't need to or want to, sheis seeing him tomorrow. She said she has not had any changes in her speech, swallow or movement. Itsjust the painful skin. Mateo Ibarra MD - 08/05/2020 10:29 AM CDT If she is having completely new left hemibody sensory symptoms I do think she should be evaluated more urgently. I had previously ordered MRIs of brain and cervical spine which have not been done yet. If that can be done soon and is unremarkable that would be reassuring. But otherwise it is probably a good idea to at least be evaluated acutely and have a head CT as she does have history of brain hemorrhage. Mateo Ibarra MD Rozina Beckett RN - 08/05/2020 9:36 AM CDT Cinthia called again at 7:30pm and left a message that this symptom is new, it is all on her left side, it is so painful that she has to hang her arm and leg off the bed and it's hard for her to wear clothes. She has a video visit Tuesday, do you feel this needs more urgent attention? Rozina Beckett RN - 08/04/2020 3:32 PM CDT Patient left a message today that she knows she has a virtual visit on Tuesday and would like to discuss that every inch of her skin is so painful. It hurts to even have clothes against it or when shetouches her skin. She has been calling several times to both offices but usually about other symptoms. Attempted call back, left message I would notify Dr. Ibarra but appreciate a call back to clarify if this is new or a worsening of previous symptom and where it is located. documented in this encounter Plan of Treatment Not on filedocumented as of this encounter Visit Diagnoses Not on filedocumented in this encounter Care Teams Vinyl Dipper Relationship Specialty Start Date End Date Alex Orozco MD PCP - General Family Practice 11/23/19 [address] [place] [address] documented as of this encounter
--- OUTSIDE RECORDS SUMMARY | 2022-02-09 21:16 | XMS_ITS | Encounter Summary ---
:1945 Author Organization [facility] Address [address] [place] [address] Care Team Providers Name Role Phone Alex Orozco MD Primary Care Provider Reason for Visit Reason Comments Increased Symptoms Encounter Details Date Type Department Care Team Description 04/21/2020 Telephone [place] [facility] Rozina Beckett RN Increased Symptoms [address] [place], [place] [address] Social History Tobacco Use Types Packs/Day Years Used Date Smoking Tobacco: Never Assessed Sex Assigned at Date Recorded Female 10/30/2020 7:58 AM CDT documented as of this encounter Nursing Notes Rozina Beckett RN - 04/21/2020 1:48 PM CST [facility] States that the left side rigidity and painful discomfort continue to increase, staff is having issues with her. They are called up there numerous times. She would like a video visit with Dr. Ibarra. Transferred to schedule. 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
--- OUTSIDE RECORDS SUMMARY | 2022-02-09 21:16 | XMS_ITS | Encounter Summary ---
:1945 Author Organization [facility] Address [address] [place] [address] Care Team Providers Name Role Phone Alex Orozco MD Primary Care Provider Reason for Visit Reason Comments Nausea Encounter Details Date Type Department Care Team Description 01/07/2020 Telephone [place] [facility] Rozina Beckett RN [facility] [address] [place] [address] Social History Tobacco Use Types Packs/Day Years Used Date Smoking Tobacco: Never Assessed Sex Assigned at Date Recorded Female 10/30/2020 7:58 AM CDT documented as of this encounter Nursing Notes Mateo Ibarra MD - 01/07/2020 4:31 PM CDT Done Rozina Beckett, MONICA - 01/07/2020 3:54 PM CDT Call back to nurse. Reviewed directions to take one Lodosyn (Carbidopa 25mg) with each dose of Carb/Levo 25/100.Please sign and send prescription to [facility]. It does not come up on my med list. Mateo Ibarra MD - 01/07/2020 3:31 PM CDT Yes if they're already trying the crackers let's give carbidopa a try. Mateo Ibarra MD Rozina Beckett, RN - 01/07/2020 2:00 PM CDT The nurse from [facility] called, states that patient has been having nausea from the Carb/Levo. It started even with a half tab, now she is on a full tab. They are giving her saltine crackers and soda. She mostly takes them around meal time. She is unsure if it is giving her any benefit. She will ask and report back when I call tomorrow. If it is providing some benefit would you want to try Carbidopa 25mg along with each tab? documented in this encounter Plan of Treatment Not on filedocumented as of this encounter Visit Diagnoses Not on filedocumented in this encounter Care Teams [place] Neck Whipper Relationship Specialty Start Date End Date Alex Orozco MD PCP - General Family Practice 11/23/19 [address] [place] [address] documented as of this encounter
--- OUTSIDE RECORDS SUMMARY | 2022-02-09 21:16 | XMS_ITS | Encounter Summary ---
:1945 Author Organization [facility] Address [address] [place] [address] Care Team Providers Name Role Phone Alex Orozco MD Primary Care Provider Encounter Details Date Type Department Care Team Description 07/21/2020 Procedure Visit Specialty Center 3931 Anthony Ibarra MD Neurology [address] [id number] [phone] Social History Tobacco Use Types Packs/Day Years Used Date Smoking Tobacco: Never Smokeless Tobacco: Never Alcohol Use Standard Drinks/Week Comments Not Currently 0 (1 standard drink = 0.6 oz pure alcoho l) Sex Assigned at Date Recorded Female 10/30/2020 7:58 AM CDT documented as of this encounter Progress Notes Kashif Izaguirre RN - 07/21/2020 1:00 PM CDT Addended by: KASHIF RICHARDSON on: 07/21/2020 03:53 PM Modules accepted: Orders Mateo Ibarra MD - 07/21/2020 1:00 PM CDT [facility] Botulinum Toxin [facility] Note History of Present Illness: Cinthia Wagner [...] in the feet as well as shuffling. [place] to possibly have a parkinsonian disorder given symptoms however did not respond to up to 3 tabs TID of carbidopa/levodopa 25/100. She has also seen by Psychiatry and establishing with Psychology. She presents today for initial botulinum toxin injections due to increasing pain/stiffness in the left arm and leg. In addition she notes toe curling in the feet bilaterally. She is also noting increased stiffness in the face. This symptom is not painful but also concerns regarding possible Parkinson disease. She has significant difficulties with constipation however more recently had issues with diarrhea due to treatment of constipation. Physical Examination: Left hand held in fist. Likely contractures limiting extension of fingers but there is some range ofmotion. Brisk reflexes throughout [place] shuffling strides. Mild tremor in the right hand. No clear increased tone or bradykinesia inthe right hand. BOTULINUM NEUROTOXIN INJECTION PROCEDURES: Informed consent was obtained prior to proceeding with the procedure. EQUIPMENT USED: EMG guidance was used during the procedure TOXIN TYPE: Botox AREA/MUSCLE INJECTED: Muscles Injected Units Injected Number of Injections Left flexor digitorum superficialis 40 1 Left flexor digitorum profundis 40 1 Left lumbricals (x4) 20 4 Left flexor digitorum longus 15 1 Left flexor digitorum brevis 10 1 Left flexor hallicus longus 10 1 Right flexor digitorum longus 15 1 Total Units Injected: 130 Unavoidable Waste: 20 Total Units Billed 150 She had significant pain with the lumbrical injections. Assessment/ Plan: 74-year-old female with a history of a right frontal stroke/hemorrhage with worsening left-sided stiffness/spasticity of unclear cause. Had initially felt she was developing Parkinson disease on top ofher prior stroke. However had no response to levodopa. Will thus check an MRI of the brain with and without contrast as well as an MRI of the cervical spine with without contrast to evaluate for any new structural problem causing these symptoms. Her last MRI of the brain was without contrast. We performed initial botulinum toxin injections today. Aside from above mentioned symptoms she also notes significant discomfort from her left arm being abducted against her side. Will thus consider targeting the left pectoralis at her next visit. If she is still noticing bothersome stiffness after about a month or two we could also consider adding baclofen as she has had some time to get used the clonazepam at this point. Will see her again in three months to consider repeat injections. Mateo Ibarra MD documented in this encounter Plan of Treatment Not on filedocumented as of this encounter Visit Diagnoses Diagnosis Parkinsonism, unspecified Parkinsonism t ype ([place]) - Primary Spasticity Abnormal involuntary movements Dystonia of foot Abnormal involuntary movements documented in this encounter Care Teams Engineer Assistant Relationship Specialty Start Date End Date Alex Orozco MD PCP - General Family Practice 11/23/19 [address] [place] [address] documented as of this encounter
--- OUTSIDE RECORDS SUMMARY | 2022-02-09 21:16 | XMS_ITS | Encounter Summary ---
:1945 Author Organization [facility] Address [address] [place] [address] Care Team Providers Name Role Phone Alex Orozco MD Primary Care Provider Reason for Visit Reason Comments Questions Encounter Details Date Type Department Care Team Description 08/01/2020 Telephone Specialty Center 3931 Scott Izaguirre Neurology L, RN 3931 [place] [address] Social History Tobacco Use Types Packs/Day Years Used Date Smoking Tobacco: Never Smokeless Tobacco: Never Alcohol Use Standard Drinks/Week Comments Not Currently 0 (1 standard drink = 0.6 oz pure alcoho l) Sex Assigned at Date Recorded Female 10/30/2020 7:58 AM CDT documented as of this encounter Nursing Notes Ricardo Izaguirre RN - 09/25/2020 10:53 AM CDT Called insurance company for update on PA that was resubmitted as the previous one was discarded as they said that she already had one on file. This new PA requested that was submitted on 09/02 with [facility] is not showing up on their end. Was transferred to [phone]. Was advised that rep update with info and will call back. Awaiting call. Ricardo Izaguirre RN - 09/02/2020 8:54 AM CDT Spoke to rep at [facility] and the auth request has been discarded as the pt already had a auth on file. Was advised the the request was for 300 units. [facility] started a new auth request for 300 units and will reach out with the determination. Ricardo Izaguirre RN - 08/06/2020 2:00 PM CDT Spoke to pt's emergency contact to let her know about the prior authorization and that this insurance underwriter is not sure if the pt is getting the messages that our office has been leaving as she will leave a message about needing more botox. She will relay the message when she speaks to her next. Ricardo Izaguirre RN - 08/06/2020 1:50 PM CDT Left vm for the pt re: needing to get PA for increased dose of botox. Ricardo Izaguirre RN - 08/06/2020 12:01 PM CDT New request for increase in botox. Transaction ID: [id number] ID: [id number] Date: 2020-08-06 Transaction Type Pharmacy Prior [facility]ization [facility] to [facility]. Ricardo Izaguirre RN - 08/05/2020 11:18 AM CDT Left vm for the pt that our office will need to get approval for 300 units of the botox as the insurance only authorized 200 units. Pt has a follow up at [facility] on 08/08 to discuss other options. Mateo Ibarra MD - 08/01/2020 4:37 PM CDT She has an appointment with me at [facility] to discuss more. If there is some benefit and no side effects we can increase dose. Also add muscles depending on where the pain is. Would she be approved for up to 300U at next Botox visit? Mateo Ibarra MD Ricardo Izaguirre RN - 08/01/2020 3:18 PM CDT Pt called to report that the botox injection that she had on 07/21 hasn't helped her foot and is ableto open her hand about 30%. She reports that she still is experiencing a lot of discomfort. She has set up an appt with Dr. Ibarra for a video visit to discuss what she can do in the meantime. The following areas were injected with botulinum toxin using EMG guidance. L Lumbrical #1 25 units L Lumbrical #2 25 units L Lumbrical #3 25 units L Lumbrical #4 25 units L Flex Dig Superf 25 units L Flex Dig Prof 15 units L Flex Poll Longus 25 units L Flex Dig Longus 70 units L Flex Did Brevis 50 units Botulinum Toxin Used: onabotulinumtoxinA (Botox) Of note, the botulinum toxin was concentrated to 100 units/cc. Summary: 285 units of botulinum toxin were injected without complications. Wasted units: 15 units Total units: 300 units?? OMIZER?? documented in this encounter Plan of Treatment Not on filedocumented as of this encounter Visit Diagnoses Not on filedocumented in this encounter Care Teams Implementation Specialist Payroll Relationship Specialty Start Date End Date Alex Orozco MD PCP - General Family Practice 11/23/19 [address] [place] [address] documented as of this encounter
--- OUTSIDE RECORDS SUMMARY | 2022-02-09 21:16 | XMS_ITS | Encounter Summary ---
:1945 Author Organization [facility] Address [address] [place] [address] Care Team Providers Name Role Phone Alex Orozco MD Primary Care Provider Reason for Visit Reason Comments UPDATE Encounter Details Date Type Department Care Team Description 06/23/2020 Telephone [facility] Fauzia Cote, RN UPDATE [address] [place], [place] [address] Social History Tobacco Use Types Packs/Day Years Used Date Smoking Tobacco: Never Assessed Sex Assigned at Date Recorded Female 10/30/2020 7:58 AM CDT documented as of this encounter Nursing Notes Fauzia Cote RN - 06/25/2020 11:34 AM CDT Spoke with patient. She was appreciative of the suggestions. She will update Dr. Ibarra at upcomingvisit what was helpful. Closing encounter at this time. Shital Cervantes MD - 06/23/2020 4:47 PM CDT Clonazepam is the drug that she is currently taking that might help with her stiffness, and Dr. Ibarra did not want to add baclofen, which is the other drug that is sometimes used, when she is also taking clonazepam, for fear of sedating her too much. She could try getting something like a mouth guard, as it sounds like maybe she is getting something like TMJ pain from facial stiffness? Spasticity after a stroke is not usually painful, so not sure really what she is describing, but I wonder if thatis it. She could also try plain old tylenol or advil for the discomfort, and heat/massage to relax the muscles. Fauzia Cote, RN - 06/23/2020 1:05 PM CDT Spoke with patient who states she is experiencing facial pain from stiffness. Worse in morning, but continues throughout day. She has a Botox appointment setup and is unable to see if there are earlieropenings because of transportation concerns. Patient has a call into her PCP as well, but wanted to know if the provider has any thoughts on additional medication options which may be helpful. Patient restates C/L gave no benefit to her. Dr. Ibarra - Please advise documented in this encounter Plan of Treatment Not on filedocumented as of this encounter Visit Diagnoses Not on filedocumented in this encounter Care Teams Soft Metals Hand Engraver Relationship Specialty Start Date End Date Alex Orozco MD PCP - General Family Practice 11/23/19 [address] [place] [address] documented as of this encounter
--- OUTSIDE RECORDS SUMMARY | 2022-02-09 21:16 | XMS_ITS | Encounter Summary ---
:1945 Author Organization [facility] Address [address] [place] [address] Care Team Providers Name Role Phone Alex Orozco MD Primary Care Provider Encounter Details Date Type Department Care Team Description 10/10/2020 Notes/Orders [facility] Elizabeth Guadarrama [address] pat[address] Real RN [place], [place] [address] Social History Tobacco Use Types Packs/Day Years Used Date Smoking Tobacco: Never Smokeless Tobacco: Never Alcohol Use Standard Drinks/Week Comments Not Currently 0 (1 standard drink = 0.6 oz pure alcoho l) Sex Assigned at Date Recorded Female 10/30/2020 7:58 AM CDT documented as of this encounter Progress Notes Elizabeth Guadarrama RN - 10/10/2020 11:11 AM CDT Received fax from [facility] pharmacy requesting refill of Clonazepam 0.25mg 1 tablet TID. Does not appear that you have prescribed this for patient in the past. Last order we have is for Clonazepam 0.5mg [address] Ibarra, is this something you want to prescribe for patient? If not will contact pharmacy and inform them to contact PCP. Mateo Ibarra MD - 10/10/2020 11:11 AM CDT Not something I have prescribed. Mateo Ibarra MD Elizabeth Guadarrama RN - 10/10/2020 11:11 AM CDT Faxed back note to pharmacy that Dr Ibarra is not prescribing this medication. documented in this encounter Plan of Treatment Not on filedocumented as of this encounter Visit Diagnoses Not on filedocumented in this encounter Care Teams Senior Sales Engineer Relationship Specialty Start Date End Date Alex Orozco MD PCP - General Family Practice 11/23/19 [address] [place] [address] documented as of this encounter
--- OUTSIDE RECORDS SUMMARY | 2022-02-09 21:16 | XMS_ITS | Encounter Summary ---
:1945 Author Organization [facility] Address [address] [place] [address] Care Team Providers Name Role Phone Alex Orozco MD Primary Care Provider Encounter Details Date Type Department Care Team Description 07/21/2020 Notes/Orders Specialty Center 3931 Richie Izaguirre rkinsonism, Neurology Ricardo Montague RN unspecified 3931 [facility] type S. ([facility]) (Primary Dx) [place] [address] Social History Tobacco Use Types Packs/Day Years Used Date Smoking Tobacco: Never Smokeless Tobacco: Never Alcohol Use Standard Drinks/Week Comments Not Currently 0 (1 standard drink = 0.6 oz pure alcoho l) Sex Assigned at Date Recorded Female 10/30/2020 7:58 AM CDT documented as of this encounter Progress Notes Ricardo Izaguirre RN - 07/21/2020 3:05 PM CDT Spoke to pt that [phone]. Pt is not claustrophic. documented in this encounter Plan of Treatment Not on filedocumented as of this encounter Visit Diagnoses Diagnosis Parkinsonism, unspecified Parkinsonism t ype ([facility]) - Primary documented in this encounter Care Teams Clerical Manager Relationship Specialty Start Date End Date Alex Orozco MD PCP - General Family Practice 11/23/19 [address] [place] [address] documented as of this encounter
--- OUTSIDE RECORDS SUMMARY | 2022-02-09 21:17 | XMS_ITS | Encounter Summary ---
:1945 Author Organization [facility] Address [address] [place] [address] Care Team Providers Name Role Phone Unavailable Primary Care Provider Unavailable Reason for Visit (Routine) - Incomplete Specialty Diagnoses / Procedures Referred By Contact Refer red To Contact Procedures Provider, Foreign Images Foreign Image(s) MR [address] Head/[place] [address] Referral ID Status Reason Start Date Expiration Date Visits V isits Requested Authorized [id number] Incomplete 05/30/2020 08/29/2021 1 1 Encounter Details Date Type Department Care Team Description 11/11/2016 Ancillary Procedure [facility] Radiology PACS Provider, Foreign [address] [place] [address] 3930 [place] [address] Social History Tobacco Use Types Packs/Day Years Used Date Smoking Tobacco: Never Assessed Sex Assigned at Date Recorded Female 10/30/2020 7:58 AM CDT documented as of this encounter Plan of Treatment Not on filedocumented as of this encounter Procedures Procedure Name Priority Date/Time Associated Diagnosis Comme nts FOREIGN IMAGE(S) MR Routine 11/11/2016 1:35 PM Re sults for this HEAD/BRAIN WO IV CDT procedure a re in CONT the results section. documented in this encounter Results Foreign Image(s) MR Head/Brain WO IV Cont (11/11/2016 1:35 PM CDT) Specimen (Source) Anatomical Location Collection Method / Collectio n Time Received Time / Laterality Volume Narrative POCT - 05/30/2020 1:34 PM DANCING INSTRUCTOR These outside images have been uploaded into PACS. If the results were provided, they will be located in the tn eduarda's chart under the Media or Imaging tab. Foreign Images Provider RAD NON-REPORTABLES Performing Organization Address City/State/ZIP Code Phon e Number POCT documented in this encounter Visit Diagnoses Not on filedocumented in this encounter
--- NOTE | 2022-02-10 10:47 | ED.NURSE ---
Called received from MONICA Rendon at [facility]. Pt was seen in the ED and given [facility] prescription for cipro and pyridium, which were filled prior to patient returning to [facility]. Staff at [facility] dispense patient's meds, so they need an order. Verified with [facility] that pt prescription was for pyridium 200mg, take one by mouth three times a day for 2 days; ciprofloxacin 500mg, take one mouth twice a day for [address] Hardin in Dr. Arreaga's absence. Pt does not have an allergy any of the prescribed medications. Signed order faxed to [facility] at [phone].
== END 2022-02-09 21:14 | disposition home or self-care (01) ==
LOC: ED 21:11
PROVIDERS: Emergency Provider Family Medicine; PCP Family Medicine
DX: N39.0 Urinary tract infection, site not specified (principal)
CPT/HCPCS: 81001; 87086; 87186; 99283; 99284; A9270